=== PATIENT | female | born 1970 | race Caucasian/White ===

== ENCOUNTER → 2017-05-12 10:43 | Outpatient (CLI) | payer MEDICAID, SELFPAY ==
[2017-05-12 13:03] LABS: Anion Gap 8 (5-15); BUN 9 mg/dL (7-18); BUN/Creat Ratio 13.8 RATIO (10-20); Calcium,Total 8.5 mg/dL (8.5-10.1); Chloride 103 mmol/L (98-107); Creatinine, Serum 0.65 mg/dL (0.55-1.02); EST Glomerular Filtration Rate 104 mL/min (>60); Est Glom Filt Rate - Afr Amer 126 mL/min (>60); Glucose 84 mg/dL (74-106); Potassium 4.2 mmol/L (3.5-5.1); Sodium Level 139 mmol/L (136-145)
[2017-05-12 13:05] LABS: Hemoglobin A1c 5.6 % (4.2-6.3)
== END ==
PROVIDERS: Family Provider Family Medicine; PCP Family Medicine; Visit Provider Family Medicine
DX: R73.02 Impaired glucose tolerance (oral) (principal); R60.9 Edema, unspecified
CPT/HCPCS: 36415; 80048; 83036

== ENCOUNTER → 2017-05-17 16:17 | Outpatient (CLI) | payer MEDICAID, SELFPAY ==
[2017-05-17 18:16] LABS: Anion Gap 8 (5-15); BUN 9 mg/dL (7-18); BUN/Creat Ratio 11.1 RATIO (10-20); Calcium,Total 8.8 mg/dL (8.5-10.1); Chloride 98 mmol/L (98-107); Creatinine, Serum 0.81 mg/dL (0.55-1.02); EST Glomerular Filtration Rate 81 mL/min (>60); Est Glom Filt Rate - Afr Amer 98 mL/min (>60); Glucose 132 mg/dL (74-106); Potassium 4.6 mmol/L (3.5-5.1); Sodium Level 137 mmol/L (136-145)
== END ==
PROVIDERS: Family Provider Family Medicine; PCP Family Medicine; Visit Provider Family Medicine
DX: E87.6 Hypokalemia (principal); R60.9 Edema, unspecified
CPT/HCPCS: 36415; 80048

== ENCOUNTER → 2017-11-17 10:56 | Outpatient (CLI) | payer MEDICAID, SELFPAY ==
[2017-11-17 12:13] LABS: Absolute Lymphocyte Count 2.11 X10^3/ul (0.83-4.51); Absolute Neutrophil Count 6.3 X10^3/uL (2.0-7.7); Basophil# 0.05 X10^3/uL; Basophil% 0.5 % (0-1); Eosinophil# 0.25 X10^3/uL; Eosinophils% 2.7 % (0-5); Hematocrit 54.1 % (37-47); Hemoglobin 16.4 g/dl (12.0-15.0); Lymphocyte # 2.11 X10^3/ul (4.0); Lymphocyte % 22.5 % (19-41); Mean Corp Hgb Conc 30.3 g/gl (32-36); Mean Corpuscular Volume 82.5 fL (81-99); Mean Platelet Vol. 11.5 fl (6.2-12.0); Monocyte# 0.65 X10^3/uL; Monocyte% 6.9 % (0-10); Neutrophil # 6.33 X10^3/uL (2.7-7.7); Neutrophil % 67.4 % (47-70); Platelet Count 152 K/mm3 (150-450); RBC Distribution Width CV 19.6 % (11.6-14.6); RBC Distribution Width SD 57.5 fl (35.1-43.9); Red Blood Count 6.56 M/mm3 (4.2-5.4); White Blood Count 9.4 K/mm3 (4.4-11.0)
[2017-11-17 12:16] LABS: Differential Indicated SCAN CRITERIA MET; POSITIVE COUNT NO; POSITIVE DIFFERENTIAL NO; POSITIVE MORPHOLOGY YES
[2017-11-17 12:32] LABS: Vitamin D,25 Hydroxy 51.6 ng/mL (29.95-100.01)
[2017-11-17 13:18] LABS: ALB/GLOB Ratio 0.7 RATIO (0.9-2.4); AST(SGOT) 26 U/L (15-37); Alanine Aminotransfer ALT/SGPT 26 U/L (13-56); Albumin, Serum 3.2 g/dL (3.2-5.0); Alkaline Phosphatase 77 U/L (45-117); Anion Gap 8 (5-15); BUN 6 mg/dL (7-18); BUN/Creat Ratio 8.9 RATIO (10-20); Chloride 105 mmol/L (98-107); Creatinine, Serum 0.68 mg/dL (0.55-1.02); EST Glomerular Filtration Rate 100 mL/min (>60); Est Glom Filt Rate - Afr Amer 121 mL/min (>60); Globulin 4.5 g/dL (2.2-4.2); Glucose 105 mg/dL (74-106); Potassium 4.4 mmol/L (3.5-5.1); Protein, Total 7.7 g/dL (6.4-8.2); Sodium Level 140 mmol/L (136-145)
== END ==
PROVIDERS: Family Provider Family Medicine; PCP Family Medicine; Visit Provider Family Medicine
DX: G40.909 Epilepsy, unspecified, not intractable, without status epilepticus (principal); E55.9 Vitamin D deficiency, unspecified; D75.1 Secondary polycythemia; I27.29 Other secondary pulmonary hypertension; Z79.899 Other long term (current) drug therapy
CPT/HCPCS: 36415; 80053; 82306; 85025

== ENCOUNTER → 2018-05-18 10:53 | Outpatient (CLI) | payer MEDICAID, SELFPAY ==
[2018-05-18 12:19] LABS: Absolute Lymphocyte Count 2.06 X10^3/ul (0.83-4.51); Absolute Neutrophil Count 6.1 X10^3/uL (2.0-7.7); Basophil# 0.03 X10^3/uL; Basophil% 0.3 % (0-1); Eosinophil# 0.26 X10^3/uL; Eosinophils% 2.8 % (0-5); Hemoglobin 16.5 g/dl (12.0-15.0); Lymphocyte # 2.06 X10^3/ul (4.0); Lymphocyte % 22.5 % (19-41); Mean Corp Hgb Conc 29.5 g/gl (32-36); Mean Corpuscular Hgb 25.1 pg (27.0-32.0); Mean Corpuscular Volume 85.1 fL (81-99); Mean Platelet Vol. 11.2 fl (6.2-12.0); Monocyte# 0.75 X10^3/uL; Monocyte% 8.2 % (0-10); Neutrophil # 6.05 X10^3/uL (2.7-7.7); Neutrophil % 66.1 % (47-70); Platelet Count 200 K/mm3 (150-450); RBC Distribution Width CV 19.3 % (11.6-14.6); RBC Distribution Width SD 59.1 fl (35.1-43.9); Red Blood Count 6.57 M/mm3 (4.2-5.4); White Blood Count 9.2 K/mm3 (4.4-11.0)
[2018-05-18 12:22] LABS: Hematocrit 55.9 % (37-47)
[2018-05-18 12:23] LABS: Differential Indicated SCAN CRITERIA MET; POSITIVE COUNT NO; POSITIVE DIFFERENTIAL NO; POSITIVE MORPHOLOGY YES
[2018-05-18 12:43] LABS: Anion Gap 7 (5-15); BUN 12 mg/dL (7-18); BUN/Creat Ratio 17.9 RATIO (10-20); Chloride 103 mmol/L (98-107); Creatinine, Serum 0.67 mg/dL (0.55-1.02); EST Glomerular Filtration Rate 100 mL/min (>60); Est Glom Filt Rate - Afr Amer 121 mL/min (>60); Glucose 99 mg/dL (74-106); Potassium 4.8 mmol/L (3.5-5.1); Sodium Level 138 mmol/L (136-145)
[2018-05-18 13:24] LABS: Platelet Estimate ADEQUATE (ADEQ)
[2018-05-18 13:25] LABS: Red Cell Morphology NORM C+C NORMAL (NORM C&C)
== END ==
PROVIDERS: Family Provider Family Medicine; PCP Family Medicine; Visit Provider Family Medicine
DX: R60.9 Edema, unspecified (principal); D75.1 Secondary polycythemia
CPT/HCPCS: 36415; 80048; 85025

== ENCOUNTER → 2019-01-26 13:51 | Outpatient (CLI) | payer MEDICAID, SELFPAY ==
[2018-12-02 07:39] VITALS: BMI 59.3
--- NOTE | 2019-01-26 13:53 | ECHOCS_ITS ---
Reason For Study: PHTN Procedure This was a 2D Doppler, Color Flow transthoracic echocardiogram. The study was technically difficult. Contrast injection was performed. Left Ventricle Normal LV size. The estimated ejection fraction is 60 %. No evidence for diastolic dysfunction. No regional wall motion abnormalities noted. Right Ventricle Mildly dilated right ventricle. Normal systolic function. Atria Normal left atrium. Normal right atrium. No doppler evidence for ASD. Mitral Valve There is no mitral valve stenosis. No mitral valve insufficiency. Tricuspid Valve There is no tricuspid stenosis. Unable to estimate RV systolic pressure due to insufficient tricuspid regurgitant envelope. No tricuspid valve insufficiency. Aortic Valve The aortic valve is not well visualized. Probably no stenosis. No aortic valve insufficiency. Pulmonic Valve There is no pulmonic valvular stenosis. No pulmonic valve insufficiency. Great Vessels Normal aortic root. Pericardium/Pleural No pericardial effusion. Medication 22 gauge I.V. with prn adaptor inserted into right arm. Diluted definity 4ml given slow IV push to enhance endocardial definition. MMode/2D Measurements & Calculations LVIDd: 4.6 cm IVSd: 1.4 cm LA dimension: 3.4 cm LVIDs: 3.6 cm LVPWd: 1.4 cm FS: 23.1 % RA A4 area: 21.0 cm2 Time Measurements MV dec time: 0.25 sec Doppler Measurements & Calculations MV E max george: 116.9 cm/sec Lat Peak E' George: 9.5 cm/sec MV V2 max: 128.3 cm/sec MV A max george: 108.7 cm/sec E/E' lat: 12.3 MV max P.6 mmHg MV E/A: 1.1 MV V2 mean: 79.3 cm/sec MV mean P.9 mmHg MV V2 VTI: 31.1 cm MV P1/2t max george: 128.3 cm/sec Ao V2 max: 181.3 cm/sec LV V1 max: 102.2 cm/sec MV P1/2t: 77.7 msec Ao max P.1 mmHg LV V1 max P.2 mmHg MV dec slope: 483.6 cm/sec2 MVA(P1/2t): 2.8 cm2 PA V2 max: 131.8 cm/sec Interpretation Summary The study was technically difficult. Diluted definity 4ml given slow IV push to enhance endocardial definition. The estimated ejection fraction is 60 %. No evidence for diastolic dysfunction. The aortic valve is not well visualized. The study was technically difficult. Ordering Physician: Franky Angelo Referring Physician: Franky Angelo Performed By: Jeremiah Garcia RCS
== END ==
PROVIDERS: Family Provider Family Medicine; PCP Family Medicine; Referring Provider Internal Medicine Critical Care Medicine; Visit Provider Internal Medicine Critical Care Medicine
DX: I27.20 Pulmonary hypertension, unspecified (principal); J96.11 Chronic respiratory failure with hypoxia; E66.01 Morbid (severe) obesity due to excess calories
CPT/HCPCS: 93306; Q9957; A4216; C8929

== ENCOUNTER → 2019-02-24 12:30 | Outpatient (CLI) | payer MEDICAID, SELFPAY ==
[2018-12-02 07:39] VITALS: BMI 59.3
[2019-02-24 12:57] VITALS: PULSE 109; PULSE 112; PULSE 121; PULSE 122; PULSE 123; PULSE 124; PULSE 95; PULSE 99; O2SAT 87; O2SAT 89; O2SAT 91; O2SAT 93; O2SAT 95
--- NOTE | 2019-02-24 12:59 | CPS ---
Patient brought in own tank, wears 2 lpm at home with exertion and at night. Started testing on room air, SpO2 93%. By the 2nd minute 87%, placed patient on 2 lpm O2, walked remainder of the test.
[2019-02-24 13:15] LABS: Allen Test POS; Base Excess 3 mmol/L (-2 to +2); Bicarbonate 27.7 mmol/L (22-26); Blood Gas Specimen Type ART; O2 Delivery Device Room Air; PO2 54 mmHG (75-100); SITE L Radial; SO2 87 % (95-99); Total Carbon Dioxide 29 mmol/L; pCO2 46.5 mmHg (35-45); pH 7.38 (7.35-7.45)
--- NOTE | 2019-02-27 08:18 | PCM.PSN.6M ---
PSN 6 Minute Walk Test - 6 Minute Walk Test 6 Minute Walk Test: 6 Minute Walk Test PSN:6-Minute Walk Test Start: 02/24/19 12:56 Freq: Status: Active Protocol: RESP.6MINW Document 02/24/19 12:57 MEGAN (Rec: 02/24/19 13:00 MEGAN [id number]) 6 Minute Walk Test Date Performed 02/24/19 Time Performed 12:30 Height 5 ft 3 in Weight: 330 lb Weight in Pounds 330.[address]: Franky Angelo Assistive device used: None Pre-test Oxygen Delivery Method Room Air Pulse Ox (%) 93 Pulse Rate (60-100 beats/min) 95 Dyspnea Vania Scale (0-10) 0 Exertion Vania Scale (6-20) 6 1st minute Oxygen Delivery Method Room Air Pulse Ox (%) 87 Pulse Rate (60-100 beats/min) 109 H 2nd minute Oxygen Flow Rate (L/min) (L/min) 2 Oxygen Delivery Method Nasal Cannula Pulse Ox (%) 91 Pulse Rate (60-100 beats/min) 112 H 3rd minute Oxygen Flow Rate (L/min) (L/min) 2 Oxygen Delivery Method Nasal Cannula Pulse Ox (%) 89 Pulse Rate (60-100 beats/min) 122 H 4th minute Oxygen Flow Rate (L/min) (L/min) 2 Oxygen Delivery Method Nasal Cannula Pulse Ox (%) 89 Pulse Rate (60-100 beats/min) 123 H Number of Rests Taken 1 5th minute Oxygen Flow Rate (L/min) (L/min) 2 Oxygen Delivery Method Nasal Cannula Pulse Ox (%) 91 Pulse Rate (60-100 beats/min) 121 H 6th minute Oxygen Flow Rate (L/min) (L/min) 2 Oxygen Delivery Method Nasal Cannula Pulse Ox (%) 89 Pulse Rate (60-100 beats/min) 124 H Dyspnea Vania Scale (0-10) 3 Exertion Vania Scale (6-20) 14 Post-test Oxygen Flow Rate (L/min) (L/min) 2 Oxygen Delivery Method Nasal Cannula Pulse Ox (%) 95 Pulse Rate (60-100 beats/min) 99 Full Laps Walked 10 Partial Lap, Number of Tiles Walked 57 Total Distance Walked (ft) 647 02/24/19 12:59 Cardiopulmonary Services by Kelsey Townsend Patient brought in own tank, wears 2 lpm at home with exertion and at night. Started testing on room air, SpO2 93%. By the 2nd minute 87%, placed patient on 2 lpm O2, walked remainder of the test. Initialized on 02/24/19 12:59 - END OF NOTE - Interpretation Interpretation: The patient ambulated 647 feet over the course of 6 minutes beginning on room air without assistive devices or breaks. Pretesting oxygen saturation was noted to be 93% on room air. With ambulation, the jennie oxygen saturation was 87%. 2 L/min of supplemental oxygen was applied and the patient was able to complete the remainder of the test while maintaining appropriate oxygen saturations. There was evidence of impaired walk distance and significant exertional oxygen desaturation. - Recommendations Recommendations: 2 L/min of supplemental oxygen should be utilized with exertion.
== END ==
PROVIDERS: Family Provider Family Medicine; PCP Family Medicine; Referring Provider Internal Medicine Critical Care Medicine; Visit Provider Internal Medicine Critical Care Medicine
DX: J96.11 Chronic respiratory failure with hypoxia (principal); E66.01 Morbid (severe) obesity due to excess calories
CPT/HCPCS: 36600; 82803; 94618

== ENCOUNTER → 2019-02-24 13:41 | Outpatient (CLI) | payer MEDICAID, SELFPAY ==
[2018-12-02 07:39] VITALS: BMI 59.3
== END ==
PROVIDERS: Family Provider Family Medicine; PCP Family Medicine; Referring Provider Surgery; Visit Provider Surgery
DX: Z53.9 Procedure and treatment not carried out, unspecified reason (principal)

== ENCOUNTER → 2019-03-30 09:53 | Outpatient (CLI) | payer MEDICAID, SELFPAY ==
[2018-12-02 07:39] VITALS: BMI 59.3
--- NOTE | 2019-03-31 07:00 | PFT ---
INTRODUCTION: The patient is a 48-year-old female that presents for pulmonary function studies secondary to a diagnosis of chronic respiratory failure. Respiratory therapy reports good patient effort. Bronchodilators were used during testing. INTERPRETATION: Forced expiration spirometry demonstrates no evidence of a large airways obstructive ventilatory defect. There was no significant response to aerosolized bronchodilators. Spirograms plateau gradually indicating slow emptying of the lungs. Body plus tomography was performed and reveals a decreased TLC to 3.25 L, 68% of predicted, indicative of a moderate restrictive ventilatory defect. Diffusing capacity by single breath CO is disproportionately reduced at 21% of predicted. IMPRESSION: Moderate restrictive ventilatory impairment with disproportionate severe reduction in diffusing capacity.
== END ==
PROVIDERS: Family Provider Family Medicine; PCP Family Medicine; Referring Provider Internal Medicine Critical Care Medicine; Visit Provider Internal Medicine Critical Care Medicine
DX: J96.11 Chronic respiratory failure with hypoxia (principal)
CPT/HCPCS: 94060; 94726; 94729

== ENCOUNTER → 2019-03-31 13:30 | Outpatient (CLI) | payer MEDICAID, SELFPAY ==
[2018-12-02 07:39] VITALS: BMI 59.3
--- NOTE | 2019-03-31 13:35 | BI_ITS ---
MAMMOGRAPHY - BILATERAL SCREENING REASON FOR EXAM: Female, 48 years old. Routine annual screening examination. PERTINENT HISTORY: Non-contributory. Remote bilateral stereotactic breast biopsies. TECHNIQUE: Digital bilateral breast shena (3D mammographic acquisition) in the CC and MLO projections. 2-D mediolateral oblique (MLO) and craniocaudad (CC) views of both breasts were obtained. CAD: Full Field Digital Mammography with Computer Added Detection was performed. COMPARISON: Comparison is made with prior outside examination dated January 06, 2018. FINDINGS: Breast Composition: The breasts are heterogeneously dense, which may obscure small masses. There are no dominant masses or suspicious calcifications. No other significant abnormalities are identified. There has been no significant change since the prior study. BI/SCREEN MAMM (CAD) W/SHENA BILAT IMPRESSION: Stable bilateral screening mammogram. Yearly follow-up mammogram recommended. (A) ASSESSMENT CATEGORY: BIRADS Category 1: Negative. A letter regarding these results will be sent to the patient by the facility within 30 days. Approximately 10% of breast cancers are not detected by mammography. A normal mammogram should not delay biopsy of a clinically suspicious abnormality. [id number] Electronically Signed: Jeffy Gomez, at 14:54 EST , Service support ,
== END ==
PROVIDERS: Family Provider Family Medicine; PCP Family Medicine; Referring Provider Nurse Practitioner Family; Visit Provider Nurse Practitioner Family
DX: Z12.31 Encounter for screening mammogram for malignant neoplasm of breast (principal)
CPT/HCPCS: 77063; 77067

== ENCOUNTER → 2019-04-21 | Outpatient (CLI) | payer MEDICAID, SELFPAY ==
[2018-12-02 07:39] VITALS: BMI 59.3
[2019-04-21 12:24] LABS: Absolute Lymphocyte Count 2.23 X10^3/uL (0.83-4.51); Absolute Neutrophil Count 6.6 X10^3/uL (2.0-7.7); Basophil# 0.07 X10^3/uL; Basophil% 0.7 % (0-1); Eosinophil# 0.26 X10^3/uL; Eosinophils% 2.6 % (0-5); Hematocrit 54.2 % (37-47); Hemoglobin 16.8 g/dL (12.0-15.0); Lymphocyte # 2.23 X10^3/ul (4.0); Lymphocyte % 22.6 % (19-41); Mean Corpuscular Hgb 27.6 pg (27.0-32.0); Mean Corpuscular Volume 89.1 fL (81-99); Mean Platelet Vol. 11.3 fl (6.2-12.0); Monocyte# 0.63 X10^3/uL; Monocyte% 6.4 % (0-10); NRBC Flagged by Analyzer 0 % (0-5); Neutrophil % 67.1 % (47-70); Platelet Count 166 K/mm3 (150-450); RBC Distribution Width CV 18.9 % (11.6-14.6); RBC Distribution Width SD 58.6 fl (35.1-43.9); Red Blood Count 6.08 M/mm3 (4.2-5.4); White Blood Count 9.9 K/mm3 (4.4-11.0)
[2019-04-21 13:08] LABS: Vitamin D,25 Hydroxy 50.8 ng/mL (29.95-100.01)
[2019-04-21 13:10] LABS: ALB/GLOB Ratio 0.7 RATIO (0.9-2.4); AST(SGOT) 18 U/L (15-37); Alanine Aminotransfer ALT/SGPT 23 U/L (13-56); Albumin, Serum 3.1 g/dL (3.2-5.0); Alkaline Phosphatase 86 U/L (45-117); Anion Gap 4 (5-15); BUN 8 mg/dL (7-18); BUN/Creat Ratio 11.2 RATIO (10-20); Calcium,Total 8.9 mg/dL (8.5-10.1); Chloride 104 mmol/L (98-107); Creatinine, Serum 0.72 mg/dL (0.55-1.02); EST Glomerular Filtration Rate 93 mL/min (>60); Est Glom Filt Rate - Afr Amer 112 mL/min (>60); Globulin 4.5 g/dL (2.2-4.2); Glucose 90 mg/dL (74-106); Potassium 4.4 mmol/L (3.5-5.1); Protein, Total 7.6 g/dL (6.4-8.2); Sodium Level 138 mmol/L (136-145); Thyroid Stim Hormone (TSH) 0.16 uIU/mL (0.358-3.74)
== END | disposition home or self-care (01) ==
LOC: BFHLAB 11:18
PROVIDERS: PCP Family Medicine; Visit Provider Family Medicine
DX: R73.02 Impaired glucose tolerance (oral) (principal); E03.9 Hypothyroidism, unspecified; R60.9 Edema, unspecified; I27.29 Other secondary pulmonary hypertension; E55.9 Vitamin D deficiency, unspecified
CPT/HCPCS: 36415; 80053; 82306; 84443; 85025

== ENCOUNTER → 2019-11-23 | Outpatient (CLI) | payer MEDICAID, SELFPAY ==
[2019-09-06 08:10] VITALS: BMI 59.3
[2019-11-23 13:45] VITALS: PULSE 105; PULSE 109; PULSE 115; PULSE 116; PULSE 84; PULSE 86; O2SAT 86; O2SAT 88; O2SAT 90; O2SAT 91; O2SAT 92; O2SAT 93
--- NOTE | 2019-11-23 14:12 | CPS ---
Pt was started off on walk on room air. At 1 min saturation was 86%. Pt was placed back on her 2lpm pulse dose oxygen. At 3 min oxygen was 88% on the 2 lpm. Pt was increased to 3lpm pulse dose oxygen for remainder of test. Dr Angelo's office was called and informed that pt was going to stay on 3 lpm pulse dose.
--- NOTE | 2019-11-23 14:47 | PCM.PSN.6M ---
PSN 6 Minute Walk Test - 6 Minute Walk Test 6 Minute Walk Test: 6 Minute Walk Test PSN:6-Minute Walk Test Start: 11/23/19 14:07 Freq: Status: Active Protocol: RESP.6MINW Document 11/23/19 13:45 AE (Rec: 11/23/19 14:19 [facility] [id number]) 6 Minute Walk Test Date Performed 11/23/19 Time Performed 13:45 Height 5 ft 3 in Weight: 156.943 kg Weight in Pounds 346.[address]: Dr Angelo Assistive device used: None Pre-test Oxygen Delivery Method Room Air Pulse Ox (%) 90 Pulse Rate (60-100 beats/min) 86 Dyspnea Vania Scale (0-10) 0 Exertion Vania Scale (6-20) 6 1st minute Oxygen Delivery Method Room Air Pulse Ox (%) 86 Pulse Rate (60-100 beats/min) 105 H 2nd minute Oxygen Flow Rate (L/min) (L/min) 2 Oxygen Delivery Method Nasal Cannula Pulse Ox (%) 91 Pulse Rate (60-100 beats/min) 105 H 3rd minute Oxygen Flow Rate (L/min) (L/min) 2 Oxygen Delivery Method Nasal Cannula Pulse Ox (%) 88 Pulse Rate (60-100 beats/min) 105 H 4th minute Oxygen Flow Rate (L/min) (L/min) 3 Oxygen Delivery Method Nasal Cannula Pulse Ox (%) 92 Pulse Rate (60-100 beats/min) 109 H 5th minute Oxygen Flow Rate (L/min) (L/min) 3 Oxygen Delivery Method Nasal Cannula Pulse Ox (%) 90 Pulse Rate (60-100 beats/min) 116 H Number of Rests Taken 1 6th minute Oxygen Flow Rate (L/min) (L/min) 3 Oxygen Delivery Method Nasal Cannula Pulse Ox (%) 90 Pulse Rate (60-100 beats/min) 115 H Dyspnea Vania Scale (0-10) 2.5 Exertion Vania Scale (6-20) 12 Post-test Oxygen Flow Rate (L/min) (L/min) 3 Oxygen Delivery Method Nasal Cannula Pulse Ox (%) 93 Pulse Rate (60-100 beats/min) 84 Full Laps Walked 10 Partial Lap, Number of Tiles Walked 17 Total Distance Walked (ft) 607 11/23/19 14:12 Cardiopulmonary Services by Misty Ford Pt was started off on walk on room air. At 1 min saturation was 86%. Pt was placed back on her 2lpm pulse dose oxygen. At 3 min oxygen was 88% on the 2 lpm. Pt was increased to 3lpm pulse dose oxygen for remainder of test. Dr Angelo's office was called and informed that pt was going to stay on 3 lpm pulse dose. Initialized on 11/23/19 14:12 - END OF NOTE - Interpretation Interpretation: The patient was noted to be 90% on room air at rest. The patient desaturated to 86% within the first minute. The patient required 3 L nasal cannula to maintain saturations throughout testing. Patient's peak heart rate was noted at 115 bpm. In total, the patient traveled 607 feet over the course of 6 minutes with no assistive devices and one break. These findings are consistent with a respiratory limitation exercise tolerance. - Recommendations Recommendations: Patient requires no supplemental oxygen at rest, but should be using 3 L nasal cannula oxygen with any exertion.
== END | disposition home or self-care (01) ==
LOC: PSN 13:35
PROVIDERS: PCP Family Medicine; Referring Provider Nurse Practitioner Acute Care; Visit Provider Nurse Practitioner Acute Care
DX: J44.9 Chronic obstructive pulmonary disease, unspecified (principal)
CPT/HCPCS: 94618

== ENCOUNTER → 2020-01-29 12:54 | Outpatient (CLI) | payer MEDICAID, SELFPAY ==
[2019-09-06 08:10] VITALS: BMI 59.3
--- NOTE | 2020-01-30 05:41 | PFTCOMP ---
COMPLETE PULMONARY FUNCTION TEST INTERPRETATION Brief HPI: Patient is a 49 year old female, currently under the care of myself, who presents to [facility] for complete pulmonary function tests secondary to diagnosis of COPD. Respiratory therapist reports good effort and reproducible results. Interpretation: Forced expiration spirometry shows a moderately severe large airways obstructive ventilatory defect with an FEV1 of 51% predicted. There is no significant bronchodilator response by strict ATS criteria. Spirograms are of good quality and plateau slowly, indicating slowly emptying areas of the lungs. The respiratory flow volume loop shows decreased expiratory flow rates at all lung volumes consistent with airway obstruction. Lung volumes by body plethysmography show a decreased total lung capacity at 3.4 L, 71% predicted. FRC and RV are elevated out of proportion. Lung volume measurements are consistent with air-trapping. Diffusion capacity by carbon monoxide is decreased at 35% predicted. The airway resistance is normal. Compared to previous pulmonary function tests from 03/30/2019, there is been a significant improvement in DLCO. Impression: Irreversible moderately severe mixed ventilatory defect with a disproportionate reduction in diffusion capacity, but some improvement compared to previous testing.
== END ==
PROVIDERS: PCP Family Medicine; Referring Provider Nurse Practitioner Acute Care; Visit Provider Nurse Practitioner Acute Care
DX: J44.9 Chronic obstructive pulmonary disease, unspecified (principal)
CPT/HCPCS: 94060; 94726; 94729

== ENCOUNTER 2020-02-28 12:11 | Emergency (ER) | payer MEDICAID, SELFPAY ==
[2020-02-28 11:22] VITALS: BMI 59.1
[2020-02-28 12:12] VITALS: BP 159/96; PULSE 81; RESP 19; TEMP 36.2; O2SAT 95; BMI 59.0
[2020-02-28 12:39] VITALS: O2SAT 97
[2020-02-28 12:45] LABS: Carboxyhemoglobin Frac (CO) 22.6 % (0.0-1.5)
--- NOTE | 2020-02-28 12:56 | ED.VISSUMM ---
- ER Visit Summary Date of Service: 02/28/20 Chief Complaint: Carbon monoxide poisoning History of Present Illness: The patient is a [address] Guero Castillo. She went to see Dr. Harmon today for polycythemia vera and he obtained a carbon monoxide level which was 26.2. Patient denies any symptoms. She does not have a headache. She does not feel short of breath. She denies any neurologic symptoms. She states that she uses an electric furnace, electric water heater and a floor electric heater. There is no propane in her apartment. She does not have a wood-burning stove. She does smoke. Physical Examination: Vitals: Stable. Afebrile. General: Well-nourished and well-developed. Head: Normocephalic atraumatic. Neck: Supple, no lymphadenopathy. No JVD. Nontender. Cardiovascular: Regular rate and rhythm. No murmurs. Respiratory: No respiratory distress. Clear to auscultation bilaterally. Abdominal: Soft, nontender, nondistended, normal bowel sounds. No guarding, rebound, or peritoneal signs. Back: Nontender. Extremities: Nontender, no edema. Skin: Normal color, no rash. Neurologic: Alert and oriented ?3. Cranial nerves II through XII are intact. Normal strength and sensation. Psych: Normal affect. Test Results: Repeat carbon monoxide level here is 22.6. This is 1-1/2 hours after her prior test. She was on 3 L nasal cannula (home O2) in between. Emergency Department Course and Treatment: Patient was placed on a nonrebreather. She remained on this for 90 minutes. This should bring her carbon monoxide level down to approximately 11.8. She does not want to stay for an additional 90 minutes as she is concerned that no one else has a goff to her apartment and that she has 2 cats who may not be doing well there. Treatment Plan: The fire department was contacted they went out to the apartment building and the carbon monoxide level was 0. The patient rode here with her sister. The fire department checked the carbon monoxide level in her car while it was running and it is 0. The patient denies any use of paint thinner or products with methylene chloride in them. Because of this Poison control was contacted. Their only other thought was that one of the patient's neighbors may be running a propane heater at night and that it was turned off and level was 0 because of this. Patient is instructed to ask all of her neighbors if they been using a propane heater. Return to the emergency department for any worsening symptoms. Disposition: To home in improved and stable condition. Impression: 1. Carbon monoxide poisoning, asymptomatic. This note was generated with [employer] dictation software. It may contain incorrect words, spelling, and punctuation that were not noted in review of the chart prior to signing ED Disposition - Plan for ED Patient: Instructions: ED Carbon Monoxide Poisoning Referrals: Guero Castillo MD [Primary Care Provider] - 1-2 Days if not improving
[2020-02-28 14:26] VITALS: O2SAT 97
== END 2020-02-28 14:43 | disposition home or self-care (01) ==
PROVIDERS: Emergency Provider Emergency Medicine; PCP Family Medicine
DX: T65.891A Toxic effect of other specified substances, accidental (unintentional), initial encounter (principal); F17.200 Nicotine dependence, unspecified, uncomplicated; D75.1 Secondary polycythemia
CPT/HCPCS: 82375; 99282

== ENCOUNTER → 2020-05-08 15:00 | Outpatient (CLI) | payer MEDICAID, SELFPAY ==
[2020-04-10 11:23] VITALS: BMI 58.1
[2020-05-08 16:59] LABS: Absolute Lymphocyte Count 2.48 X10^3/uL (0.83-4.51); Absolute Neutrophil Count 7.4 X10^3/uL (2.0-7.7); Basophil# 0.07 X10^3/uL; Basophil% 0.6 % (0-1); Eosinophil# 0.25 X10^3/uL; Eosinophils% 2.3 % (0-5); Hemoglobin 17.1 g/dL (12.0-15.0); Lymphocyte # 2.48 X10^3/ul (4.0); Lymphocyte % 22.8 % (19-41); Mean Corp Hgb Conc 29.7 g/dL (32-36); Mean Corpuscular Hgb 26.8 pg (27.0-32.0); Mean Corpuscular Volume 90.4 fL (81-99); Mean Platelet Vol. 11.5 fl (6.2-12.0); Monocyte# 0.61 X10^3/uL; Monocyte% 5.6 % (0-10); NRBC Flagged by Analyzer 0 % (0-5); Neutrophil # 7.42 X10^3/uL (2.7-7.7); Neutrophil % 68.3 % (47-70); Platelet Count 185 K/mm3 (150-450); RBC Distribution Width CV 19.2 % (11.6-14.6); RBC Distribution Width SD 59.9 fl (35.1-43.9); Red Blood Count 6.37 M/mm3 (4.2-5.4); White Blood Count 10.9 K/mm3 (4.4-11.0)
[2020-05-08 17:04] LABS: Hematocrit 57.6 % (37-47)
[2020-05-08 17:21] LABS: Vitamin D,25 Hydroxy 64.7 ng/mL
[2020-05-08 17:33] LABS: Hemoglobin A1c 5.3 % (3.8-5.6)
[2020-05-08 17:37] LABS: ALB/GLOB Ratio 0.7 RATIO (0.9-2.4); AST(SGOT) 26 U/L (15-37); Alanine Aminotransfer ALT/SGPT 35 U/L (13-56); Albumin, Serum 3.4 g/dL (3.2-5.0); Alkaline Phosphatase 95 U/L (45-117); Anion Gap 5 (5-15); BUN 9 mg/dL (7-18); BUN/Creat Ratio 11.6 RATIO (10-20); Calcium,Total 9.4 mg/dL (8.5-10.1); Chloride 103 mmol/L (98-107); Creatinine, Serum 0.78 mg/dL (0.55-1.02); EST Glomerular Filtration Rate 84 mL/min (>60); Est Glom Filt Rate - Afr Amer 102 mL/min (>60); Globulin 4.6 g/dL (2.2-4.2); Glucose 91 mg/dL (74-106); Potassium 4.6 mmol/L (3.5-5.1); Sodium Level 138 mmol/L (136-145); T4 Free Direct 1.43 ng/dL (0.76-1.46); Thyroid Stim Hormone (TSH) 3.14 uIU/mL (0.358-3.74)
== END ==
PROVIDERS: PCP Family Medicine; Visit Provider Family Medicine
DX: E03.9 Hypothyroidism, unspecified (principal); E55.9 Vitamin D deficiency, unspecified; D75.1 Secondary polycythemia; I27.29 Other secondary pulmonary hypertension; R73.02 Impaired glucose tolerance (oral)
CPT/HCPCS: 36415; 80053; 82306; 83036; 84439; 84443; 85025

== ENCOUNTER 2020-05-25 19:43 | Emergency (ER) | payer MEDICAID, SELFPAY ==
[2020-05-15 11:24] VITALS: BMI 58.6
[2020-05-25 19:44] VITALS: BP 162/89; PULSE 80; RESP 20; TEMP 36.3; O2SAT 98; BMI 58.2
--- NOTE | 2020-05-25 20:10 | RAD_ITS ---
STUDY: X-RAY - LEFT KNEE REASON FOR EXAM: Female, 50 years old. Swelling TECHNIQUE: 4 view(s) of the knee. COMPARISON: None. FINDINGS: No acute fracture, dislocation or osseous destruction. Mild diffuse joint space narrowing. No significant productive changes. Diffuse prominence of the soft tissues and superficial veins. IMPRESSION: No acute fracture or dislocation. Electronically Signed: Yan Reid MD at 20:34 EDT Tel , Service support , RAD/Knee 4 or More Views
--- NOTE | 2020-05-25 20:38 | ED.DCSUM_ITS ---
- ER Visit Summary Date of Service: 05/25/20 Chief Complaint: Left lower extremity swelling History of Present Illness: The patient is a 50 F presenting with left lower extremity swelling. Patient states she noticed this today. She has swelling distal to her left knee. She denies pain or injury. She went to [facility] and was told she needed a venous Doppler to rule out DVT. She states they were unable to perform this over the weekend. She denies chest pain. She is on nasal cannula oxygen chronically and is no more short of breath than usual. She denies fever. Denies other complaints. Physical Examination: Vitals are stable. Patient is afebrile. Alert no acute distress. HEENT exam is unremarkable. Neck is supple. Lungs are clear and equal bilaterally. Heart is regular rate and rhythm. Abdomen is soft nontender nondistended. Extremities bilateral chronic lymphedema changes. No erythema or warmth of the knee with active full range of motion. She has small area of swelling just distal to the left knee. No tenderness. Normal distal pulses. Skin is warm and dry. No focal neurologic deficit. Remainder of exam is unremarkable. Emergency Department Course and Treatment: Left knee x-ray read by myself and radiology shows no acute fracture or dislocation. Patient is resting comfortably on reevaluation. Venous Doppler is ordered for tomorrow as it is not currently available. Advised to return to the ED for worsening complaints. Disposition: Discharge home Impression: Left lower extremity swelling This note was generated with [employer] dictation software. It may contain incorrect words, spelling, and punctuation that were not noted in review of the chart prior to signing ED Disposition - Plan for ED Patient: Referrals: Guero Castillo MD [Primary Care Provider] -
--- NOTE | 2020-05-25 22:31 | ED.DEP ---
ED Disposition - Plan for ED Patient: Instructions: ED Peripheral Edema, Unilateral Referrals: Guero Castillo MD [Primary Care Provider] -
== END 2020-05-25 22:48 | disposition home or self-care (01) ==
LOC: ED 20:44
PROVIDERS: Emergency Provider Emergency Medicine; PCP Family Medicine
DX: M79.89 Other specified soft tissue disorders (principal); J44.9 Chronic obstructive pulmonary disease, unspecified; Z79.51 Long term (current) use of inhaled steroids
CPT/HCPCS: 73564; 99282

== ENCOUNTER → 2020-06-09 | Outpatient (CLI) | payer MEDICAID, SELFPAY ==
[2020-06-05 13:25] VITALS: BMI 57.8
[2020-06-09 18:08] LABS: Carboxyhemoglobin Frac (CO) 23.2 % (0.0-1.5)
[2020-06-09 22:09] LABS: Carboxyhemoglobin Frac (CO) 14.4 % (0.0-1.5)
== END | disposition home or self-care (01) ==
LOC: LABSPEC 17:41
PROVIDERS: PCP Family Medicine
DX: R06.89 Other abnormalities of breathing (principal)
CPT/HCPCS: 82375

== ENCOUNTER 2020-06-10 15:52 | Emergency (ER) | payer MEDICAID, SELFPAY ==
[2020-06-05 13:25] VITALS: BMI 57.8
[2020-06-10 15:53] VITALS: BP 141/74; PULSE 80; RESP 21; TEMP 36.4; O2SAT 97; BMI 56.7
[2020-06-10 16:04] VITALS: PULSE 83; RESP 18; O2SAT 92
[2020-06-10 16:08] VITALS: O2SAT 92
--- NOTE | 2020-06-10 16:16 | ED.VIS.GEN ---
History of Present Illness Chief Complaint: Abn Labs Informant: Patient Narrative: 10-year-old female with history of COPD on 3 L of oxygen at baseline presenting with abnormal lab work. She states that she had an elevated carboxyhemoglobin. She was seen in [place] last night and states that her carboxyhemoglobin was in the 40s. She was placed on nonrebreather and [place]. She did go home. She states that her place has been checked 3 times and there is no leaks of any sort. Patient states that she does have a mild headache, nausea, body aches. She is not required more oxygen. She states that nobody else has been ill that is been around. She states that overnight it was just her and her cats and her cats are not sick. Patient's carboxyhemoglobin checked yesterday was 14.4. Patient does relate that she smokes 1-1/2 to 2 packs of cigarettes per day and she has been told that this could make her carboxyhemoglobin high. - Past Medical History (1) COPD (chronic obstructive pulmonary disease) Status: Chronic (2) Carbon monoxide poisoning Status: Chronic (3) Lymph edema Status: Chronic (4) Morbid (severe) obesity due to excess calories Status: Chronic Past Medical History - Allergies and Home Meds Allergies/Adverse Reactions: Allergies codeine Allergy (Severe, Verified 06/05/20 13:23) Anaphylaxis levothyroxine sodium Allergy (Severe, Verified 06/05/20 13:23) Hives medroxyprogesterone acetate [From Provera] Allergy (Severe, Verified 06/05/20 13:23) Hives Penicillins Allergy (Severe, Verified 06/05/20 13:23) Hives spironolactone Allergy (Severe, Verified 06/05/20 13:23) Hives fluticasone [From Flonase] Allergy (Intermediate, Verified 06/05/20 13:23) ALLERGY Latex, Natural Rubber Allergy (Intermediate, Verified 06/05/20 13:23) ALLERGY sitagliptin [From Januvia] Allergy (Intermediate, Verified 06/05/20 13:23) ALLERGY metformin Allergy (Mild, Verified 06/05/20 13:23) Hives sitagliptin phosphate [From Januvia] Adverse Reaction (Severe, Verified 06/05/20 13:23) Shortness of breath adhesive tape Adverse Reaction (Intermediate, Verified 06/05/20 13:23) SKIN BREAK DOWN BEES Allergy (Severe, Uncoded 05/25/20 19:46) Swelling Primary Care Physician: Guero Castillo MD [Primary Care Provider] - Prior records reviewed: Yes Past Medical History: - - Hemochromatosis Surgical History: noncontributory Lives: [facility] Smoking Status: Current every day smoker Alcohol: None Drugs: None Review of Systems General: Denies: Chills, Fever, Sweats Eyes: Denies: Visual changes - bilaterally, Diplopia ENT: Denies: Rhinorrhea, Sore throat Cardiovascular: Denies: Chest pain, Palpitations Respiratory: Denies: Dyspnea, Cough, Sputum Gastrointestinal: Reports: Nausea. Denies: Abdominal pain, Vomiting Genitourinary: Denies: Dysuria, Hematuria Musculoskeletal: Reports: Myalgias. Denies: Arthralgias, Neck pain Skin: Denies: Rash, Wounds Neurological: Reports: Headache. Denies: Weakness, Parasthesia, Numbness Psych: Denies: Depression, Anxiety, Suicidal thoughts, Suicidal ideations Endocrine: Denies: Polyuria, Polydipsia Physical Exam Vital Signs/Narrative: Vital Signs Temp Pulse Resp BP Pulse Ox 06/10/20 16:08 92 06/10/20 16:04 83 18 92 06/10/20 15:53 97.5 F L 80 21 H 141/74 H 97 Inital Vital Signs reviewed: Yes General: Well nourished, No Acute Distress Head: Normocephalic, Atraumatic Eyes: Perrl, EOMI ENT: Moist mucous membranes, No rhinorrhea Cardiovascular: Regular rate, Regular rhythm Respiratory: No distress, CTA bilaterally Extremities: Nontender, No edema Skin: Normal color, No rash. Negative for: Cyanosis, Diaphoresis Neurological: Alert, Oriented x3, Cranial nerves II-XII grossly intact Psychological: Normal affect, Normal Mood Diagnostic/Tx/Re-eval - Medical Decision Making Patient had a carboxyhemoglobin rechecked again in the ER it is 14.2 and it was 14.4. Patient has been on nonrebreather for 90 minutes and I will recheck her carboxyhemoglobin. Patient states that she feels fine at this time. She has no complaints. ED Disposition - Plan for ED Patient: Disposition: Home or Assisted Living Referrals: Guero Castillo MD [Primary Care Provider] - Additional Instructions: 50-year-old female presenting with elevated carboxyhemoglobin levels. She does states she walks 1-1/2 to 2 packs of cigarettes a day. Patient's last level was 14. She has had a nonrebreather on for 90 minutes and she is down to 11. Patient does not want to stay to get it down under 10. Patient states she is had her house checked 3 times and there is no leaks of any sort. Likely this is due to tobacco use. Patient is stable for discharge at this time. Impression: 1. Elevated carboxyhemoglobin level
[2020-06-10 17:07] VITALS: O2SAT 99
[2020-06-10 17:22] LABS: Carboxyhemoglobin Frac (CO) 14.2 % (0.0-1.5)
[2020-06-10 19:31] VITALS: BP 132/87; PULSE 74; RESP 19; TEMP 36.5; O2SAT 97
== END 2020-06-10 19:32 | disposition home or self-care (01) ==
PROVIDERS: Emergency Provider Student in an Organized Health Care Education/Training Program; PCP Family Medicine
DX: T58.8X2A Toxic effect of carbon monoxide from other source, intentional self-harm, initial encounter (principal); J44.9 Chronic obstructive pulmonary disease, unspecified; E66.01 Morbid (severe) obesity due to excess calories; Z99.81 Dependence on supplemental oxygen
CPT/HCPCS: 82375; 99283; A4216

== ENCOUNTER → 2020-06-17 12:38 | Outpatient (CLI) | payer MEDICAID, SELFPAY ==
[2020-05-25 19:44] VITALS: BMI 58.2
[2020-06-10 15:53] VITALS: BMI 56.7
--- NOTE | 2020-06-17 12:47 | VDLE_ITS ---
Reason For Study: PAIN Procedure LEFT This is a venous duplex using B-mode, color GSV is normal. flow and spectral Doppler. FV is compressible, spontaneous, phasic, Exam performed in department. competent and demonstrates normal A preliminary report was called and/or faxed augmentation. to ED. POP V is compressible, spontaneous, phasic, competent and demonstrates normal augmentation. T/P Trunk is compressible. PTV is compressible. LT PerV is compressible. LT CFV not visualized due to body habitus/pannus. LT SFJ and POPV have doppler in transverse view due to body habiuts. VL/Venous Duplex US, Unilateral Interpretation Summary There is no evidence of left lower extremity deep vein thrombosis. Left great s aphenous vein appears patent and compressible segmentally. Please see the technical limitations of th e examination with inability to demonstrate the left common femoral vein and technical difficultie s in imaging the left saphenofemoral junction as well as the left popliteal vein Ordering Physician: Ivory Ballesteros Referring Physician: KENIA CARSON Performed By: Clara Whitehead, SUSHANTCS, RVT
== END ==
PROVIDERS: PCP Family Medicine; Referring Provider Emergency Medicine; Visit Provider Emergency Medicine
DX: M79.605 Pain in left leg (principal)
CPT/HCPCS: 93971

== ENCOUNTER → 2020-07-18 13:38 | Outpatient (CLI) | payer MEDICAID, SELFPAY ==
--- NOTE | 2020-07-18 13:42 | RAD_ITS ---
EXAM: XR CHEST, 2 VIEWS : 1970 CLINICAL INDICATION: CAUGH TECHNIQUE: Frontal and lateral views of the chest. This report was created using [employer] report generation technology. COMPARISON: 11/28/2014 FINDINGS: LUNGS AND PLEURAL SPACES: Unremarkable. No consolidation or edema. No pneumothorax. No effusion. HEART: Unremarkable. Cardiac silhouette not enlarged. MEDIASTINUM: Central airways and mediastinal contour are unremarkable. BONES/JOINTS: Unremarkable. SOFT TISSUES: Unremarkable. RAD/Chest PA and Lateral IMPRESSION: No radiographic evidence of acute cardiopulmonary disease. at 0805 Reported and signed by: Lit Hunter MD Electronically Signed: Lit Hunter MD at 8:04 EDT Tel , Service support ,
== END ==
PROVIDERS: PCP Family Medicine; Visit Provider Family Medicine
DX: J44.9 Chronic obstructive pulmonary disease, unspecified (principal); R09.02 Hypoxemia
CPT/HCPCS: 71046

== ENCOUNTER → 2020-08-07 13:05 | Outpatient (CLI) | payer MEDICAID, SELFPAY ==
[2020-08-07 14:55] LABS: Absolute Lymphocyte Count 2.69 X10^3/uL (0.83-4.51); Absolute Neutrophil Count 7.7 X10^3/uL (2.0-7.7); Basophil# 0.08 X10^3/uL; Basophil% 0.7 % (0-1); Eosinophil# 0.28 X10^3/uL; Eosinophils% 2.4 % (0-5); Hematocrit 55.5 % (37-47); Hemoglobin 17.1 g/dL (12.0-15.0); Lymphocyte # 2.69 X10^3/ul (0.83-4.51); Lymphocyte % 23.5 % (19-41); Mean Corp Hgb Conc 30.8 g/dL (32-36); Mean Corpuscular Hgb 27.2 pg (27.0-32.0); Mean Corpuscular Volume 88.2 fL (81-99); Mean Platelet Vol. 11.4 fl (6.2-12.0); Monocyte# 0.63 X10^3/uL; Monocyte% 5.5 % (0-10); NRBC Flagged by Analyzer 0 % (0-5); Neutrophil # 7.74 X10^3/uL (2.7-7.7); Neutrophil % 67.6 % (47-70); Platelet Count 209 K/mm3 (150-450); RBC Distribution Width CV 17.3 % (11.6-14.6); RBC Distribution Width SD 53.3 fl (35.1-43.9); Red Blood Count 6.29 M/mm3 (4.2-5.4); White Blood Count 11.5 K/mm3 (4.4-11.0)
[2020-08-07 15:19] LABS: Vitamin D,25 Hydroxy 68.7 ng/mL
[2020-08-07 15:37] LABS: Anion Gap 9 (5-15); BUN 6 mg/dL (7-18); BUN/Creat Ratio 9.3 RATIO (10-20); Calcium,Total 8.9 mg/dL (8.5-10.1); Chloride 103 mmol/L (98-107); Creatinine, Serum 0.65 mg/dL (0.55-1.02); EST Glomerular Filtration Rate 104 mL/min (>60); Est Glom Filt Rate - Afr Amer 125 mL/min (>60); Glucose 108 mg/dL (74-106); Potassium 3.9 mmol/L (3.5-5.1); Rheumatoid Factor < 10.0 IU/mL (<15); Sodium Level 139 mmol/L (136-145); T4 Free Direct 1.79 ng/dL (0.76-1.46); Thyroid Stim Hormone (TSH) 0.69 uIU/mL (0.358-3.74)
[2020-08-09 16:26] LABS: ANTINUCLEAR ANTIBODIES DIRECT Negative (Negative)
[2020-08-10 07:36] LABS: CCP IgG Antibodies 4 units (0-19)
== END ==
PROVIDERS: PCP Family Medicine; Referring Provider Family Medicine; Visit Provider Family Medicine
DX: E55.9 Vitamin D deficiency, unspecified (principal); E03.9 Hypothyroidism, unspecified; I27.29 Other secondary pulmonary hypertension; M06.4 Inflammatory polyarthropathy
CPT/HCPCS: 36415; 80048; 82306; 84439; 84443; 85025; 86038; 86200; 86225; 86235; 86431

== ENCOUNTER 2020-09-17 16:02 | Emergency (ER) | payer MEDICAID, SELFPAY ==
[2020-09-17 16:02] VITALS: BP 151/74; PULSE 89; RESP 22; TEMP 37.1; O2SAT 90; BMI 54.6
--- NOTE | 2020-09-17 16:54 | EKG12_ITS ---
Test Reason : SOB Blood Pressure : / mmHG Vent. Rate : 069 BPM Atrial Rate : 069 BPM P-R Int : 190 ms QRS Dur : 092 ms QT Int : 380 ms P-R-T Axes : 060 -09 029 degrees QTc Int : 407 ms Normal sinus rhythm Normal ECG Confirmed by OPAL MADDOX, KATHARINE ([id number]), sound editor MCKENZIE BOCANEGRA ([id number]) on 09/18/2020 11:55:14 AM Referred By: SIMRAN Confirmed By:KATHARINE JOSEPH MD
[2020-09-17 16:58] VITALS: O2SAT 94
--- NOTE | 2020-09-17 17:20 | RAD_ITS ---
INDICATION: SOB, hypoxia EXAMINATION/TECHNIQUE: X-RAY - XR Chest 1 View COMPARISON: 07/18/2020. FINDINGS: The lungs are clear. The cardiomediastinal silhouette is unremarkable. No pleural effusion or pneumothorax. No acute osseous abnormalities. Dextroscoliosis. RAD/Chest 1 View (Portable) IMPRESSION: No acute radiographic abnormalities. Electronically Signed: Abran Elmore MD at 17:32 EDT Tel , Service support ,
[2020-09-17 17:26] LABS: Absolute Lymphocyte Count 2.41 X10^3/uL (0.83-4.51); Absolute Neutrophil Count 6.8 X10^3/uL (2.0-7.7); Basophil# 0.07 X10^3/uL; Basophil% 0.7 % (0-1); Eosinophil# 0.23 X10^3/uL; Eosinophils% 2.3 % (0-5); Hematocrit 52.1 % (37-47); Hemoglobin 16.2 g/dL (12.0-15.0); Lymphocyte # 2.41 X10^3/ul (0.83-4.51); Lymphocyte % 23.7 % (19-41); Mean Corp Hgb Conc 31.1 g/dL (32-36); Mean Corpuscular Hgb 26.6 pg (27.0-32.0); Mean Corpuscular Volume 85.7 fL (81-99); Monocyte# 0.68 X10^3/uL; Monocyte% 6.7 % (0-10); NRBC Flagged by Analyzer 0 % (0-5); Neutrophil # 6.75 X10^3/uL (2.7-7.7); Neutrophil % 66.3 % (47-70); Platelet Count 211 K/mm3 (150-450); RBC Distribution Width CV 16.8 % (11.6-14.6); Red Blood Count 6.08 M/mm3 (4.2-5.4); White Blood Count 10.2 K/mm3 (4.4-11.0)
--- NOTE | 2020-09-17 17:27 | EDS_ITS ---
HPI History of Present Illness Chief Complaint: Shortness of Breath Informant: patient Narrative Narrative: Patient is a 50-year-old female with a past medical history of COPD, [place], polycythemia who presents to the emergency department for shortness of breath and headache. She states that she has had these symptoms before in the past when she has had carbon monoxide poisoning. She states that she was told that she had this due to her smoking and polycythemia. She denies any exposures to combustible sources. She states that her symptoms have been present over the past 3 days. She is had a hard time getting her oxygen above 92% at home. She typically wears 3 L of supplemental oxygen when exerting herself and sleeping. She denies a significant cough. No sputum production. No fevers or chills. She has not been vaccinated for Covid but no known Covid exposures. She denies any nausea/vomiting or diarrhea. No leg swelling or calf pain past baseline. [facility] Medical History (Updated 09/17/20 @ 18:[address] Canelo Burnett, ) Asthma Breast lump in female Chronic obstructive asthma COPD (chronic obstructive pulmonary disease) Fibromyalgia Hearing problem Hidradenitis History of allergic urticaria History of chronic bronchitis History of seizures Hypothyroidism Lymph edema Migraine headache Obesity Polycystic ovaries Pulmonary hypertension Seasonal allergies Sleep apnea Vision problems Vitamin deficiency Home Medications levothyroxine 200 mcg PO DAILY 11/14/14 [History Last Taken Unknown] lamotrigine 25 mg tablet 25 mg PO DAILY tab 10/07/18 [History Last Taken Unknown] metformin 1,000 mg tablet 1,000 mg PO BID 10/07/18 [History Last Taken Unknown] potassium chloride 20 mEq tablet,extended release(part/cryst) 20 meq PO DAILY tab 10/07/18 [History Last Taken Unknown] albuterol sulfate 90 mcg/actuation aerosol inhaler 2 puff INHALATION Q6H PRN #18 g 06/13/19 [Rx Last Taken Unknown] bumetanide 2 mg tablet 2 mg PO DAILY PRN #30 tab 06/13/19 [Rx Last Taken Unknown] levothyroxine 75 mcg PO QHS 02/22/20 [History Last Taken Unknown] cholecalciferol (vitamin D3) 7,000 unit PO DAILY 04/10/20 [History Last Taken Unknown] Allergy/AdvReac Type Severity Reaction Status Date / Time codeine Allergy Severe Anaphylaxis Verified 09/17/20 16:05 levothyroxine sodium Allergy Severe Hives Verified 09/17/20 16:05 medroxyprogesterone acetate Allergy Severe Hives Verified 09/17/20 16:05 [From Provera] Penicillins Allergy Severe Hives Verified 09/17/20 16:05 spironolactone Allergy Severe Hives Verified 09/17/20 16:05 fluticasone [From Flonase] Allergy Intermediate ALLERGY Verified 09/17/20 16:05 Latex, Natural Rubber Allergy Intermediate ALLERGY Verified 09/17/20 16:05 sitagliptin [From Januvia] Allergy Intermediate ALLERGY Verified 09/17/20 16:05 metformin Allergy Mild Hives Verified 09/17/20 16:05 sitagliptin phosphate AdvReac Severe Shortness Verified 09/17/20 16:05 [From Januvia] of breath adhesive tape AdvReac Intermediate SKIN BREAK Verified 09/17/20 16:05 [place] Allergy Severe Swelling Uncoded 09/17/20 16:05 Family History Mother Hypertension CVA (cerebral vascular accident) Cancer Grandfather Cancer lung Heart disease Grandmother Hypertension Cancer Father CVA (cerebral vascular accident) Brother Diabetes Other Alcoholism /alcohol abuse Arthritis Epilepsy Lung cancer Seizures Uterine cancer Surgical History history diagnostic laparoscopy History of dilatation and curettage History of nasal surgery History of tonsillectomy Social History Smoking Status: Current every day smoker tobacco type: cigarettes counseling given: provider counseling and counseling >10 minutes alcohol intake: never substance use type: does not use additional social history: DOES NOT USE ASPIRIN DOES USE IBUPROFEN ROS ROS ED Constitutional Constitutional ED: Denies chills or fever(s) Eyes Eyes: Denies change in vision ENT ENT ED: Denies epistaxis or rhinorrhea Cardiovascular Cardiovascular: Denies chest pain or palpitations Respiratory/Chest Respiratory/Chest: Reports dyspnea; Denies cough or sputum Gastrointestinal Gastrointestinal: Denies abdominal pain, diarrhea, nausea or vomiting Genitourinary Genitourinary ED: Denies dysuria, hematuria or urinary frequency Musculoskeletal Musculoskeletal: Denies back pain or neck pain Integumentary Denies rash Neurologic Neurologic: Reports headache(s); Denies dizziness or weakness EXAM Physical Exam Const Vital Signs: 09/17/20 16:02 09/17/20 16:58 09/17/20 17:51 Temperature 98.7 F Temperature Source Temporal Pulse Rate 89 Respiratory Rate 22 H Respiratory Effort Short of Breath Respiratory Depth Normal Respiratory Pattern Normal Blood Pressure 151/74 H Blood Pressure Mean 99 Pulse Ox 90 94 Oxygen Delivery Method Nasal Cannula Room Air Nasal Cannula Oxygen Flow Rate (L/min) 3 2 09/17/20 18:58 09/17/20 20:02 Temperature Temperature Source Pulse Rate 64 Respiratory Rate 18 18 Respiratory Effort Respiratory Depth Respiratory Pattern Blood Pressure Blood Pressure Mean Pulse Ox 99 96 Oxygen Delivery Method Nasal Cannula Oxygen Flow Rate (L/min) 6 Positive well nourished and well developed General Appearance ED: well developed and NAD HEENT Reports normocephalic, head/scalp atraumatic and moist mucous membranes Eyes PERRL and EOMs intact bilaterally Neck supple General: Negative for tenderness Chest Wall inspection of chest normal Resp normal respiratory effort and clear to auscultation bilaterally Auscultation: Negative for rales, rhonchi or wheezes Cardio regular rate, regular rhythm and no murmurs GI normal to inspection, nondistended, normoactive bowel sounds and non-tender Palpation: soft; Negative for guarding or rebound tenderness present Back/Spine no CVA tenderness Extremity General Extremety ED: Negative for tenderness Neuro CN's II-XII intact bilaterally and no sensory deficits noted Sensorium / Orientation: alert Motor Exam: strength 5/5 throughout Psych mental status grossly normal Skin no rashes or lesions noted MDM MDM MDM Narrative Medical decision making narrative: Patient presents to the emergency department for shortness of breath and headache. She is concerned that she has carbon monoxide poisoning as she has had this before just with smoking cigarettes. She continues to smoke despite this. On arrival she is satting in the low 90s on room air. She is in no acute distress. Able to speak in full sentences on examination. She is a benign exam. Will check x-ray as well as basic lab work. Patient's lab work does not show a high white blood cell count. She has a hemoglobin of 16.2 which is consistent with her previous lab work. Her C MP did not reveal any significant acute abnormality. Her carboxyhemoglobin was 19.2. She has had higher levels in the past. Her troponin is within normal limits. BNP is well within normal limits. X-ray did not reveal any significant acute abnormality. After being started back on her supplemental oxygen her carboxyhemoglobin was rechecked by at the finger measurement and was trended down to 14. I did recommend she continue on her home oxygen. She states that she has had her home checked and she does feel safe going back. I did career guidance counselor the patient on smoking sensation as her levels will just rise back up if she continues to smoke. Patient understands. Should be discharged home in stable condition. She is to follow-up with her PCP. Return precautions are reviewed. She does feel better at this time. Lab Data Labs: Laboratory Results - last 24 hr 09/17/20 09/17/20 09/17/20 17:17 17:17 17:17 WBC 10.2 RBC 6.08 H Hgb 16.2 H Hct 52.1 H MCV 85.7 MCH 26.6 L MCHC 31.1 L RDW Std Deviation 50.0 H RDW Coeff of Radha 16.8 H Plt Count 211 MPV 11.0 Immature Gran % (Auto) 0.300 Neut % (Auto) 66.3 Lymph % (Auto) 23.7 [place] % (Auto) 6.7 Eos % (Auto) 2.3 Baso % (Auto) 0.7 Absolute Neuts (auto) 6.8 Absolute Lymphs (auto) 2.41 Nucleated RBC % 0 Sodium 137 Potassium 4.1 Chloride 104 Carbon Dioxide 28.0 Anion Gap 5 BUN 7 Creatinine 0.73 Estim Creat Clear Calc 77.96 Est GFR (MDRD) Af Amer 109 Est GFR (MDRD) Non-Af 90 BUN/Creatinine Ratio 9.6 L Glucose 100 Calcium 8.9 Total Bilirubin 0.80 AST 17 ALT 23 Alkaline Phosphatase 87 Troponin I High Sens 3.3 B-Natriuretic Peptide 5.2 Total Protein 7.7 Albumin 3.3 Globulin 4.4 H Albumin/Globulin Ratio 0.8 L ABG Data ABG results: ABG 09/17/20 17:17 VBG Carboxyhemoglobin 19.2 H Radiography Diagnostic Testing: Radiology Impression Chest X-Ray 09/17/20 17:20 IMPRESSION: No acute radiographic abnormalities. Electronically Signed: Abran Elmore MD at 17:32 EDT Tel , Service support , Single view portable x-ray interpreted by myself. Clear lung glass bilaterally. No pleural effusion. Normal cardiac silhouette. Normal mediastinum. There is scoliosis present. Agree with radiologist interpretation. EKG Initial EKG: Attestation: I personally reviewed and interpreted this EKG as follows: (Rate of 69 bpm and normal sinus rhythm. Normal intervals. Normal axis. No significant ST elevations or depressions. No T wave abnormalities.) Discharge Plan Triage Chief Complaint: Shortness of Breath ED Provider: Canelo Burnett Dx/Rx/DC Orders Clinical Impression: Carbon monoxide poisoning Instructions: Carbon Monoxide Poisoning, Planning to Quit Smoking Prescriptions: No Action metformin [Glucophage] 1,000 mg tablet 1,000 mg PO BID RF: 0 lamotrigine [Lamictal] 25 mg tablet 25 mg PO DAILY RF: 0 albuterol sulfate 90 mcg/actuation HFA aerosol inhaler 2 puff INHALATION Q6H PRN (Reason: shortness of breath or wheezing) Qty: 18 RF: 3 bumetanide 2 mg tablet 2 mg PO DAILY PRN (Reason: edema) Qty: 30 RF: 0 levothyroxine 175 MCG tablet 200 mcg PO DAILY RF: 0 potassium chloride 20 mEq tablet,ER particles/crystals 20 meq PO DAILY RF: 0 levothyroxine 75 MCG tablet 75 mcg PO QHS RF: 0 cholecalciferol (vitamin D3) 1,000 UNIT tablet 7,000 unit PO DAILY RF: 0 Primary Care Provider: Guero Castillo Referrals: Guero Castillo MD [Primary Care Provider] - 2 Days Disposition Disposition: Home, Self Care Discharge Date/Time: 09/17/20 20:02
[2020-09-17 17:43] LABS: BNP,B-Type NATRIURETIC PEPTIDE 5.2 pg/mL (0-100)
[2020-09-17 17:47] LABS: ALB/GLOB Ratio 0.8 RATIO (0.9-2.4); AST(SGOT) 17 U/L (15-37); Alanine Aminotransfer ALT/SGPT 23 U/L (13-56); Albumin, Serum 3.3 g/dL (3.2-5.0); Alkaline Phosphatase 87 U/L (45-117); Anion Gap 5 (5-15); BUN 7 mg/dL (7-18); BUN/Creat Ratio 9.6 RATIO (10-20); Calcium,Total 8.9 mg/dL (8.5-10.1); Chloride 104 mmol/L (98-107); Creatinine, Serum 0.73 mg/dL (0.55-1.02); EST Glomerular Filtration Rate 90 mL/min (>60); Est Glom Filt Rate - Afr Amer 109 mL/min (>60); Estimated Creatinine Clearance 77.96 ml/min; Globulin 4.4 g/dL (2.2-4.2); Glucose 100 mg/dL (74-106); Potassium 4.1 mmol/L (3.5-5.1); Protein, Total 7.7 g/dL (6.4-8.2); Sodium Level 137 mmol/L (136-145); Troponin-I HS 3.3 pg/mL (3.0-53.7)
[2020-09-17 17:51] VITALS: O2SAT 94
[2020-09-17 18:05] LABS: Carboxyhemoglobin Frac (CO) 19.2 % (0.0-1.5)
[2020-09-17 18:58] VITALS: PULSE 64; RESP 18; O2SAT 99
--- NOTE | 2020-09-17 19:48 | ED.RN ---
patients co level at 14. dr. hess aware.
[2020-09-17 20:02] VITALS: RESP 18; O2SAT 96
== END 2020-09-17 20:02 | disposition home or self-care (01) ==
PROVIDERS: Emergency Provider Emergency Medicine; PCP Family Medicine
DX: T58.8X1A Toxic effect of carbon monoxide from other source, accidental (unintentional), initial encounter (principal); R06.02 Shortness of breath; J44.9 Chronic obstructive pulmonary disease, unspecified; M79.7 Fibromyalgia; E03.9 Hypothyroidism, unspecified; E66.9 Obesity, unspecified; F17.210 Nicotine dependence, cigarettes, uncomplicated; Z79.51 Long term (current) use of inhaled steroids; Z79.899 Other long term (current) drug therapy
CPT/HCPCS: 71045; 80053; 82375; 83880; 84484; 85025; 93005; 99283

== ENCOUNTER 2020-09-18 10:11 | Emergency (ER) | payer MEDICAID, SELFPAY ==
[2020-09-17 16:02] VITALS: BMI 54.6
[2020-09-18 10:13] VITALS: BP 155/95; PULSE 87; RESP 22; TEMP 36.4; O2SAT 92; BMI 54.2
[2020-09-18 12:06] LABS: Carboxyhemoglobin Frac (CO) 20.7 % (0.0-1.5)
--- NOTE | 2020-09-18 12:42 | EX.ED.DYSGE1 ---
HPI History of Present Illness Chief Complaint: Poisoning Informant: patient Onset/Context/Timing Onset: Yesterday Context: Gradual Onset Timing: Continuous Quality: Aching and fatigued Location: Generalized Worsened by: Nothing Relieved by: Movement Narrative Narrative: Patient presents with headache and fatigue that has been getting worse since yesterday. Patient states this feels similar to prior episodes of elevated carbon monoxide. Patient states she has been evaluated for this multiple times in the past. Patient states she was told that this is due to her smoking. Patient still smokes 1-1/2 packs of cigarettes per day. Patient is on home oxygen. Patient states that her symptoms improve with activity. Patient denies any nausea or vomiting. Patient denies any fevers or chills. [facility] Medical History (Updated 09/18/20 @ 12:[address] Han Engel, ) Asthma Breast lump in female Chronic obstructive asthma COPD (chronic obstructive pulmonary disease) Fibromyalgia Hearing problem Hidradenitis History of allergic urticaria History of chronic bronchitis History of seizures Hypothyroidism Lymph edema Migraine headache Obesity Polycystic ovaries Pulmonary hypertension Seasonal allergies Sleep apnea Vision problems Vitamin deficiency Home Medications levothyroxine 200 mcg PO DAILY 11/14/14 [History Last Taken Unknown] lamotrigine 25 mg tablet 25 mg PO DAILY tab 10/07/18 [History Last Taken Unknown] metformin 1,000 mg tablet 1,000 mg PO BID 10/07/18 [History Last Taken Unknown] potassium chloride 20 mEq tablet,extended release(part/cryst) 20 meq PO DAILY tab 10/07/18 [History Last Taken Unknown] albuterol sulfate 90 mcg/actuation aerosol inhaler 2 puff INHALATION Q6H PRN #18 g 06/13/19 [Rx Last Taken Unknown] bumetanide 2 mg tablet 2 mg PO DAILY PRN #30 tab 06/13/19 [Rx Last Taken Unknown] levothyroxine 75 mcg PO QHS 02/22/20 [History Last Taken Unknown] cholecalciferol (vitamin D3) 7,000 unit PO DAILY 04/10/20 [History Last Taken Unknown] Allergy/AdvReac Type Severity Reaction Status Date / Time codeine Allergy Severe Anaphylaxis Verified 09/18/20 10:13 levothyroxine sodium Allergy Severe Hives Verified 09/18/20 10:13 medroxyprogesterone acetate Allergy Severe Hives Verified 09/18/20 10:13 [From Provera] Penicillins Allergy Severe Hives Verified 09/18/20 10:13 spironolactone Allergy Severe Hives Verified 09/18/20 10:13 fluticasone [From Flonase] Allergy Intermediate ALLERGY Verified 09/18/20 10:13 Latex, Natural Rubber Allergy Intermediate ALLERGY Verified 09/18/20 10:13 sitagliptin [From Januvia] Allergy Intermediate ALLERGY Verified 09/18/20 10:13 metformin Allergy Mild Hives Verified 09/18/20 10:13 sitagliptin phosphate AdvReac Severe Shortness Verified 09/18/20 10:13 [From Januvia] of breath adhesive tape AdvReac Intermediate SKIN BREAK Verified 09/18/20 10:13 [place] Allergy Severe Swelling Uncoded 09/18/20 10:13 Family History Mother Hypertension CVA (cerebral vascular accident) Cancer Grandfather Cancer lung Heart disease Grandmother Hypertension Cancer Father CVA (cerebral vascular accident) Brother Diabetes Other Alcoholism /alcohol abuse Arthritis Epilepsy Lung cancer Seizures Uterine cancer Surgical History history diagnostic laparoscopy History of dilatation and curettage History of nasal surgery History of tonsillectomy Social History Smoking Status: Current every day smoker tobacco type: cigarettes counseling given: provider counseling and counseling >10 minutes alcohol intake: never substance use type: does not use additional social history: DOES NOT USE ASPIRIN DOES USE IBUPROFEN ROS ROS ED Constitutional Constitutional ED: Denies chills or fever(s) Eyes Eyes: Denies blurry vision or change in vision ENT ENT ED: Denies rhinorrhea or sore throat Cardiovascular Cardiovascular: Denies chest pain or palpitations Respiratory/Chest Respiratory/Chest: Denies cough or dyspnea Gastrointestinal Gastrointestinal: Denies nausea or vomiting Genitourinary Genitourinary ED: Denies dysuria or hematuria Musculoskeletal Musculoskeletal: Denies back pain or neck pain Integumentary Denies abscess or rash Neurologic Neurologic: Reports headache(s) and weakness Allergic/Immunologic Allergic/Immunologic ED: Denies mouth swelling or urticaria EXAM Physical Exam Const Vital Signs: 09/18/20 10:13 09/18/20 11:22 09/18/20 11:23 Temperature 97.5 F L Temperature Source Temporal Pulse Rate 87 Respiratory Rate 22 H Respiratory Effort Normal Respiratory Pattern Normal Blood Pressure 155/95 H Blood Pressure Mean 115 Pulse Ox 92 Oxygen Delivery Method Nasal Cannula Nasal Cannula Oxygen Flow Rate (L/min) 3 4 Positive well nourished, well developed, obese and unkempt General Appearance ED: unkempt and well developed Nutritional Appearance: obese HEENT Reports moist mucous membranes Neck supple and no JVD Resp normal respiratory effort and clear to auscultation bilaterally Cardio regular rate, regular rhythm and no murmurs GI normal to inspection, nondistended, normoactive bowel sounds and non-tender Palpation: soft Extremity normal to inspection General Extremety ED: Negative for edema or tenderness General Extremity: Negative for edema Neuro oriented x3, CN's II-XII intact bilaterally and no sensory deficits noted Sensorium / Orientation: alert Motor Exam: strength 5/5 throughout Psych mental status grossly normal Appearance: unkempt Skin no rashes or lesions noted MDM MDM MDM Narrative Medical decision making narrative: Patient was placed on oxygen. Carboxyhemoglobin level was obtained and was elevated at 20.7. Patient was increased to a nonrebreather mask. Patient will be observed until she feels better. Patient is feeling better on reevaluation. Repeat carboxyhemoglobin via pulse oximeter was 7. Patient was instructed to follow-up with her primary care physician in 5 to 7 days. Patient is instructed to return if worse in any way. Patient understood and was agreeable with the plan. All questions were answered. ABG Data ABG results: ABG 09/18/20 11:22 VBG Carboxyhemoglobin 20.7 H* Discharge Plan Triage Chief Complaint: Poisoning ED Provider: Han Engel Dx/Rx/DC Orders Clinical Impression: Carbon monoxide poisoning Instructions: ED Carbon Monoxide Poisoning Prescriptions: No Action metformin [Glucophage] 1,000 mg tablet 1,000 mg PO BID RF: 0 lamotrigine [Lamictal] 25 mg tablet 25 mg PO DAILY RF: 0 albuterol sulfate 90 mcg/actuation HFA aerosol inhaler 2 puff INHALATION Q6H PRN (Reason: shortness of breath or wheezing) Qty: 18 RF: 3 bumetanide 2 mg tablet 2 mg PO DAILY PRN (Reason: edema) Qty: 30 RF: 0 levothyroxine 175 MCG tablet 200 mcg PO DAILY RF: 0 potassium chloride 20 mEq tablet,ER particles/crystals 20 meq PO DAILY RF: 0 levothyroxine 75 MCG tablet 75 mcg PO QHS RF: 0 cholecalciferol (vitamin D3) 1,000 UNIT tablet 7,000 unit PO DAILY RF: 0 Primary Care Provider: Guero Castillo Referrals: Guero Castillo MD [Primary Care Provider] - 3-5 Days Disposition Disposition: Home, Self Care
[2020-09-18 14:22] VITALS: RESP 18; O2SAT 96
== END 2020-09-18 14:22 | disposition home or self-care (01) ==
PROVIDERS: Emergency Provider Emergency Medicine; PCP Family Medicine
DX: T58.8X1A Toxic effect of carbon monoxide from other source, accidental (unintentional), initial encounter (principal); F17.210 Nicotine dependence, cigarettes, uncomplicated; Z99.81 Dependence on supplemental oxygen; J44.9 Chronic obstructive pulmonary disease, unspecified; M79.7 Fibromyalgia; E03.9 Hypothyroidism, unspecified; E66.9 Obesity, unspecified; Z79.51 Long term (current) use of inhaled steroids; Z79.899 Other long term (current) drug therapy
CPT/HCPCS: 82375; 99282; A4216

== ENCOUNTER 2021-02-25 15:59 | Emergency (ER) | payer MEDICAID, SELFPAY ==
[2021-02-25 16:00] VITALS: BP 163/75; PULSE 81; RESP 21; TEMP 35.8; O2SAT 93; BMI 54.9
--- NOTE | 2021-02-25 16:46 | EKG12_ITS ---
Test Reason : Blood Pressure : / mmHG Vent. Rate : 072 BPM Atrial Rate : 072 BPM P-R Int : 178 ms QRS Dur : 086 ms QT Int : 376 ms P-R-T Axes : 034 -07 030 degrees QTc Int : 411 ms Normal sinus rhythm Poor R wave progression Confirmed by CHRIS MADDOX, JAYLEEN ([id number]), order editor MCKENZIE BOCANEGRA ([id number]) on 03/03/2021 9:11:54 AM Referred By: YAZMIN Confirmed By:JAYLEEN PEREZ MD
--- NOTE | 2021-02-25 16:49 | EDS_ITS ---
HPI History of Present Illness Chief Complaint: Shortness of Breath Narrative Narrative: Patient presents with shortness of breath and body aches that she has had for the last few days. She states that she has history of COPD and is a smoker, but presents because of carbon monoxide. She smokes at least half a pack a day. She wears oxygen when she has her exertional dyspnea. She states she is been short of breath, but does not use aerosolized treatments because none are prescribed to her. Additionally, she cannot take steroids because they raise her blood pressure. She presents because of the body aches and shortness of breath with occasional cough. She denies any fevers or chills. She has not been vaccinated against COVID-19 because she is allergic. [facility] Medical History (Updated 02/25/21 @ 20:17 by Be Fernandes MD) Asthma Breast lump in female Chronic obstructive asthma COPD (chronic obstructive pulmonary disease) Fibromyalgia Hearing problem Hidradenitis History of allergic urticaria History of chronic bronchitis History of seizures Hypothyroidism Lymph edema Migraine headache Obesity Polycystic ovaries Pulmonary hypertension Seasonal allergies Sleep apnea Vision problems Vitamin deficiency Home Medications levothyroxine 200 mcg PO DAILY 11/14/14 [History Last Taken Unknown] lamotrigine 25 mg tablet 25 mg PO DAILY tab 10/07/18 [History Last Taken Unknown] metformin 1,000 mg tablet 1,000 mg PO BID 10/07/18 [History Last Taken Unknown] potassium chloride 20 mEq tablet,extended release(part/cryst) 20 meq PO DAILY t ab 10/07/18 [History Last Taken Unknown] albuterol sulfate 90 mcg/actuation aerosol inhaler 2 puff INHALATION Q6H PRN #18 g 06/13/19 [Rx Last Taken Unknown] bumetanide 2 mg tablet 2 mg PO DAILY PRN #30 tab 06/13/19 [Rx Last Taken Unknown] levothyroxine 75 mcg PO QHS 02/22/20 [History Last Taken Unknown] cholecalciferol (vitamin D3) 7,000 unit PO DAILY 04/10/20 [History Last Taken Unknown] Allergy/AdvReac Type Severity Reaction Status Date / Time codeine Allergy Severe Anaphylaxis Verified 02/25/21 16:00 levothyroxine sodium Allergy Severe Hives Verified 02/25/21 16:00 medroxyprogesterone acetate Allergy Severe Hives Verified 02/25/21 16:00 [From Provera] Penicillins Allergy Severe Hives Verified 02/25/21 16:00 spironolactone Allergy Severe Hives Verified 02/25/21 16:00 fluticasone [From Flonase] Allergy Intermediate ALLERGY Verified 02/25/21 16:00 Latex, Natural Rubber Allergy Intermediate ALLERGY Verified 02/25/21 16:00 sitagliptin [From Januvia] Allergy Intermediate ALLERGY Verified 02/25/21 16:00 metformin Allergy Mild Hives Verified 02/25/21 16:00 sitagliptin phosphate AdvReac Severe Shortness Verified 02/25/21 16:00 [From Januvia] of breath adhesive tape AdvReac Intermediate SKIN BREAK Verified 02/25/21 16:00 [place] Allergy Severe Swelling Uncoded 02/25/21 16:00 Family History Mother Hypertension CVA (cerebral vascular accident) Cancer Grandfather Cancer lung Heart disease Grandmother Hypertension Cancer Father CVA (cerebral vascular accident) Brother Diabetes Other Alcoholism /alcohol abuse Arthritis Epilepsy Lung cancer Seizures Uterine cancer Surgical History history diagnostic laparoscopy History of dilatation and curettage History of nasal surgery History of tonsillectomy Social History Smoking Status: Current every day smoker tobacco type: cigarettes counseling given: provider counseling and counseling >10 minutes alcohol intake: never substance use type: does not use additional social history: DOES NOT USE ASPIRIN DOES USE IBUPROFEN ROS ROS ED ROS Narrative Constitutional: No fever, no chills. HEENT: No sore throat. No neck pain. No loss of vision. No rhinorrhea. Cardiovascular: No chest pain. No palpitations. No pedal edema. Respiratory: Positive cough, positive shortness of breath. Abdominal: No abdominal pain. No nausea. No vomiting. Genitourinary: No dysuria. No hematuria. Musculoskeletal: Positive myalgias. No arthralgias. Neurologic: Occasional headaches. No dizziness. No lightheadedness. Skin: No rash. No change in color. Psychiatric: No depression. No anxiety. EXAM Physical Exam Narrative Exam Narrative: Afebrile. Vital signs noted. HEENT: Normocephalic. Atraumatic. PERRL, EOMI. Neck soft and supple. No point tenderness or step off. Cardiovascular: Regular rate and rhythm. No murmurs, rubs, or gallops appreciated. Respiratory: No tachypnea. Lungs clear to auscultation bilaterally. Decreased breath sounds bilateral bases. Gastrointestinal: Abdomen obese, soft, nontender, with normoactive bowel sounds. No rebound or guarding. Neurological: Awake. Alert. Nonfocal, nonlateralizing. Skin: No rash. Normal color. No pallor. Musculoskeletal: No pedal edema. Full range of motion extremities. Const Vital Signs: 02/25/21 16:00 02/25/21 17:38 02/25/21 17:45 Temperature 96.5 F L Temperature Source Temporal Pulse Rate 81 Respiratory Rate 21 H Respiratory Effort Normal Respiratory Depth Normal Respiratory Pattern Normal Blood Pressure 163/75 H Blood Pressure Mean 104 Pulse Ox 93 96 Oxygen Delivery Method Nasal Cannula Room Air Nasal Cannula Oxygen Flow Rate (L/min) 3 3 02/25/21 18:07 02/25/21 19:34 Temperature Temperature Source Pulse Rate 72 64 Respiratory Rate 16 20 H Respiratory Effort Respiratory Depth Respiratory Pattern Blood Pressure 122/68 H 123/47 H Blood Pressure Mean 86 72 Pulse Ox 96 99 Oxygen Delivery Method Nasal Cannula Non-Rebreather Oxygen Flow Rate (L/min) 3 15 MDM MDM MDM Narrative Medical decision making narrative: Comprehensive work-up was pursued. She is afebrile here. Pulse ox is 93% on room air. She is not tachycardic. I will obtain a chest x-ray and swab her for Covid and influenza. I will obtain baseline laboratories. I will also check her carbon monoxide level. Her CBC shows white count of 12.1, hemoglobin 14.5, platelet count of 239. Her electrolyte panel is grossly unremarkable. Chest x-ray shows no acute process. Covid swab is negative. Her carbon monoxide level is elevated today at 17. She was placed on a nonrebreather. Her cooximetry by fingertip is now at 6. She feels improved. In review of her prior records, she was told that her carbon monoxide levels tend to elevate because she is a smoker and has polycythemia. She states that she undergoes phlebotomy every 3 months, but initially she was getting it every 4 to 6 weeks. She was told that it is imperative for her to quit smoking. She will continue to wear her oxygen at home. She will also get her home checked by the fire department for carbon monoxide levels, but I do feel this is more of a chronic problem for her with her smoking, and she may need to phlebotomy more often then every 3 months. She will follow up with her electrical technology instructor/oncologist. At this point in time, I feel she be discharged safely home with follow-up. Return instructions to the emergency department were reviewed. She feels comfortable going home and states that all of her heating is electric and not natural gas. Patient was discharged in improved and stable condition. Lab Data Attestation: I reviewed the patient's lab results. Labs: Laboratory Results - last 24 hr 02/25/21 02/25/21 17:20 17:20 WBC 12.1 H RBC 6.37 H Hgb 14.5 Hct 49.6 H MCV 77.9 L MCH 22.8 L MCHC 29.2 L RDW Std Deviation 50.1 H RDW Coeff of Radha 19.4 H Plt Count 239 MPV 10.3 Immature Gran % (Auto) 0.400 Neut % (Auto) 69.9 Lymph % (Auto) 20.0 [place] % (Auto) 6.6 Eos % (Auto) 2.4 Baso % (Auto) 0.7 Absolute Neuts (auto) 8.4 H Absolute Lymphs (auto) 2.41 Nucleated RBC % 0 Sodium 139 Potassium 4.3 Chloride 106 Carbon Dioxide 27.0 Anion Gap 6 BUN 8 Creatinine 0.64 Estim Creat Clear Calc 88.93 Est GFR (MDRD) Af Amer 127 Est GFR (MDRD) Non-Af 105 BUN/Creatinine Ratio 12.5 Glucose 104 Calcium 9.3 Troponin I High Sens 4 ABG Data ABG results: ABG 02/25/21 17:20 VBG O2 Content 16.1 H VBG Oxyhemoglobin 78.0 VBG Carboxyhemoglobin 17.7 H VBG Methemoglobin 0.5 Hemoglobin 14.9 Radiography Diagnostic Testing: Clinical Impression(s) from Imaging Studies Chest X-Ray 02/25/21 17:15 IMPRESSION: No visualized acute process Electronically Signed: Main Strange MD at 18:23 EST , Service support , Discharge Plan Triage Chief Complaint: Shortness of Breath ED Provider: Be Fernandes Dx/Rx/DC Orders Clinical Impression: Carbon monoxide poisoning, COPD (chronic obstructive pulmonary disease), Polycythemia Instructions: ED Carbon Monoxide Poisoning Prescriptions: No Action metformin [Glucophage] 1,000 mg tablet 1,000 mg PO BID RF: 0 lamotrigine [Lamictal] 25 mg tablet 25 mg PO DAILY RF: 0 albuterol sulfate 90 mcg/actuation HFA aerosol inhaler 2 puff INHALATION Q6H PRN (Reason: shortness of breath or wheezing) Qty: 18 RF: 3 bumetanide 2 mg tablet 2 mg PO DAILY PRN (Reason: edema) Qty: 30 RF: 0 levothyroxine 175 MCG tablet 200 mcg PO DAILY RF: 0 potassium chloride 20 mEq tablet,ER particles/crystals 20 meq PO DAILY RF: 0 levothyroxine 75 MCG tablet 75 mcg PO QHS RF: 0 cholecalciferol (vitamin D3) 1,000 UNIT tablet 7,000 unit PO DAILY RF: 0 Primary Care Provider: Guero Castillo Referrals: Guero Castillo MD [Primary Care Provider] - 03/04/21 (STOP SMOKING!) Disposition Disposition: Home, Self Care
--- NOTE | 2021-02-25 17:15 | RAD_ITS ---
STUDY: X-RAY CHEST REASON FOR EXAM: Female, 50 years old. shortness of breath TECHNIQUE: Single PA view of the chest. COMPARISON: September 17, 2020 and September 16, 2013 FINDINGS: No visualized consolidation. Chronic prominence of the interstitium in the right lower lobe which has been demonstrated since 2013 and appears to be related to the bronchovascular structures in this region appearing more prominent due to the scoliotic curvature. There is no demonstrated pleural abnormality. Normal size heart. Normal mediastinum and uma. Normal visualized pulmonary arteries. Normal visualized aortic arch and descending thoracic aorta. There is a dextroscoliosis of the thoracic spine. Normal visualized ribs, clavicles, and shoulders. There is no demonstrated abnormality of the visualized soft tissue structures of the upper abdomen. RAD/Chest 1 View IMPRESSION: No visualized acute process Electronically Signed: Main Strange MD at 18:23 EST , Service support ,
[2021-02-25 17:33] LABS: Absolute Lymphocyte Count 2.41 X10^3/uL (0.83-4.51); Absolute Neutrophil Count 8.4 X10^3/uL (2.0-7.7); Basophil# 0.08 X10^3/uL; Basophil% 0.7 % (0-1); Eosinophil# 0.29 X10^3/uL; Eosinophils% 2.4 % (0-5); Hematocrit 49.6 % (37-47); Hemoglobin 14.5 g/dL (12.0-15.0); Lymphocyte # 2.41 X10^3/ul (0.83-4.51); Mean Corp Hgb Conc 29.2 g/dL (32-36); Mean Corpuscular Hgb 22.8 pg (27.0-32.0); Mean Corpuscular Volume 77.9 fL (81-99); Mean Platelet Vol. 10.3 fl (6.2-12.0); Monocyte# 0.79 X10^3/uL; Monocyte% 6.6 % (0-10); NRBC Flagged by Analyzer 0 % (0-5); Neutrophil # 8.44 X10^3/uL (2.7-7.7); Neutrophil % 69.9 % (47-70); Platelet Count 239 K/mm3 (150-450); RBC Distribution Width CV 19.4 % (11.6-14.6); RBC Distribution Width SD 50.1 fl (35.1-43.9); Red Blood Count 6.37 M/mm3 (4.2-5.4); White Blood Count 12.1 K/mm3 (4.4-11.0)
[2021-02-25 17:38] VITALS: O2SAT 96
[2021-02-25 17:45] VITALS: O2SAT 97
[2021-02-25 17:56] LABS: Anion Gap 6 (5-15); BUN 8 mg/dL (7-18); BUN/Creat Ratio 12.5 RATIO (10-20); Calcium,Total 9.3 mg/dL (8.5-10.1); Chloride 106 mmol/L (98-107); Creatinine, Serum 0.64 mg/dL (0.55-1.02); EST Glomerular Filtration Rate 105 mL/min (>60); Est Glom Filt Rate - Afr Amer 127 mL/min (>60); Estimated Creatinine Clearance 88.93 ml/min; Glucose 104 mg/dL (74-106); Potassium 4.3 mmol/L (3.5-5.1); Sodium Level 139 mmol/L (136-145); Troponin-I HS 4 pg/mL (3.0-54.0)
[2021-02-25 18:02] LABS: Carboxyhemoglobin Frac (CO) 17.7 % (0.0-1.5); Methemoglobin 0.5 % (0.0-1.5); OXYGEN CONTENT OF HEMOGLOBIN 16.1 VOL%O2 (6.7-15.6)
[2021-02-25 18:07] VITALS: BP 122/68; PULSE 72; RESP 16; O2SAT 96
[2021-02-25 19:34] VITALS: BP 123/47; PULSE 64; RESP 20; O2SAT 99
[2021-02-25 20:00] VITALS: BP 112/67; O2SAT 98
== END 2021-02-25 20:25 | disposition home or self-care (01) ==
PROVIDERS: Emergency Provider Emergency Medicine; PCP Family Medicine
DX: T58.91XA Toxic effect of carbon monoxide from unspecified source, accidental (unintentional), initial encounter (principal); D75.1 Secondary polycythemia; J44.9 Chronic obstructive pulmonary disease, unspecified; Z20.822 Contact with and (suspected) exposure to COVID-19; I27.20 Pulmonary hypertension, unspecified; E03.9 Hypothyroidism, unspecified; M79.7 Fibromyalgia; G47.30 Sleep apnea, unspecified; E66.9 Obesity, unspecified; F17.210 Nicotine dependence, cigarettes, uncomplicated; Z79.84 Long term (current) use of oral hypoglycemic drugs; Z79.890 Hormone replacement therapy; Z79.899 Other long term (current) drug therapy
CPT/HCPCS: 71045; 80048; 82375; 84484; 85025; 87426; 87804; 93005; 99285; A4216

== ENCOUNTER 2021-02-26 14:12 | Emergency (ER) | payer MEDICAID, SELFPAY ==
[2021-02-26 14:13] VITALS: BP 192/77; PULSE 102; RESP 22; TEMP 35.8; O2SAT 95; BMI 54.7
--- NOTE | 2021-02-26 14:52 | EX.ED.VIS.UR ---
HPI HPI - URI History of Present Illness Chief Complaint: Shortness of Breath Informant: patient Onset/Context/Timing Onset: Today Current Severity: Mild Maximum Severity: Mild Associated Symptoms Associated Symptoms: Positive for Headache; Negative for Nasal Congestion Narrative Narrative: 50-year-old female history of polycythemia and hypothyroidism. For the last year she has had recurrent ER visits for carbon monoxide levels that were elevated. She does smoke 1/2 packs of cigarettes a day. She states she lives in apartment. All of her utilities are electric. She has no gas burning stove. Says she does not even own a car nor does she have a garage in the apartment. Said none of her neighbors problems. She said they have come and checked her Apt. 2 or 3 times and each time the car but not side level was normal. She has 2 cats at all bothered by this at all. She was seen in the emergency department yesterday. She also denies any kerosene heaters in her home. She does not work outside the house. Prior similar symptoms: Yes Recent Illness/Hospitalization: No ROS ROS ED ROS Narrative Headache Review of Systems ROS Unobtainable: Denies due to encephalopathy Constitutional Constitutional ED: Denies fever(s) Eyes Eyes: Denies change in vision ENT ENT ED: Denies ear pain Cardiovascular Cardiovascular: Denies chest pain Respiratory/Chest Respiratory/Chest: Denies dyspnea Gastrointestinal Gastrointestinal: Reports nausea; Denies abdominal pain, diarrhea or vomiting Genitourinary Genitourinary ED: Denies dysuria Musculoskeletal Musculoskeletal: Denies myalgias Integumentary Denies rash Neurologic Neurologic: Reports headache(s) Psychiatric Psychiatric: Denies depression Endocrine Endocrinology: Denies polyuria Hematologic/Lymphatic Hematologic/Lymphatic: Denies easy bruising Allergic/Immunologic Allergic/Immunologic ED: Denies urticaria [facility] Medical History (Updated 02/26/21 @ 15:[address] David Lopez MD) Asthma Breast lump in female Chronic obstructive asthma COPD (chronic obstructive pulmonary disease) Fibromyalgia Hearing problem Hidradenitis History of allergic urticaria History of chronic bronchitis History of seizures Hypothyroidism Lymph edema Migraine headache Obesity Polycystic ovaries Pulmonary hypertension Seasonal allergies Sleep apnea Vision problems Vitamin deficiency Home Medications levothyroxine 200 mcg PO DAILY 11/14/14 [History Last Taken Unknown] lamotrigine 25 mg tablet 25 mg PO DAILY tab 10/07/18 [History Last Taken Unknown] metformin 1,000 mg tablet 1,000 mg PO BID 10/07/18 [History Last Taken Unknown] potassium chloride 20 mEq tablet,extended release(part/cryst) 20 meq PO DAILY tab 10/07/18 [History Last Taken Unknown] albuterol sulfate 90 mcg/actuation aerosol inhaler 2 puff INHALATION Q6H PRN #18 g 06/13/19 [Rx Last Taken Unknown] bumetanide 2 mg tablet 2 mg PO DAILY PRN #30 tab 06/13/19 [Rx Last Taken Unknown] levothyroxine 75 mcg PO QHS 02/22/20 [History Last Taken Unknown] cholecalciferol (vitamin D3) 7,000 unit PO DAILY 04/10/20 [History Last Taken Unknown] Allergy/AdvReac Type Severity Reaction Status Date / Time codeine Allergy Severe Anaphylaxis Verified 02/26/21 14:13 levothyroxine sodium Allergy Severe Hives Verified 02/26/21 14:13 medroxyprogesterone acetate Allergy Severe Hives Verified 02/26/21 14:13 [From Provera] Penicillins Allergy Severe Hives Verified 02/26/21 14:13 spironolactone Allergy Severe Hives Verified 02/26/21 14:13 fluticasone [From Flonase] Allergy Intermediate ALLERGY Verified 02/26/21 14:13 Latex, Natural Rubber Allergy Intermediate ALLERGY Verified 02/26/21 14:13 sitagliptin [From Januvia] Allergy Intermediate ALLERGY Verified 02/26/21 14:13 metformin Allergy Mild Hives Verified 02/26/21 14:13 sitagliptin phosphate AdvReac Severe Shortness Verified 02/26/21 14:13 [From Januvia] of breath adhesive tape AdvReac Intermediate SKIN BREAK Verified 02/26/21 14:13 [place] Allergy Severe Swelling Uncoded 02/26/21 14:13 Family History Mother Hypertension CVA (cerebral vascular accident) Cancer Grandfather Cancer lung Heart disease Grandmother Hypertension Cancer Father CVA (cerebral vascular accident) Brother Diabetes Other Alcoholism /alcohol abuse Arthritis Epilepsy Lung cancer Seizures Uterine cancer Surgical History history diagnostic laparoscopy History of dilatation and curettage History of nasal surgery History of tonsillectomy Social History Smoking Status: Current every day smoker tobacco type: cigarettes counseling given: provider counseling and counseling >10 minutes alcohol intake: never substance use type: does not use additional social history: DOES NOT USE ASPIRIN DOES USE IBUPROFEN EXAM Physical Exam Narrative Exam Narrative: 42-year-old female no acute distress vital signs stable afebrile. Currently on oxygen pulse ox is 95% on 3 L. H EENT exam unremarkable. Osteomas. Neck nontender no lymphadenopathy. Lungs clear to auscultation bilaterally. Heart regular rate and rhythm no murmur. Abdomen obese with soft nontender normal bowel sounds no peritoneal signs. Moving all 4 extremities. Calves are nontender without edema. Neurologically she is awake alert with no focal motor deficits. Const Vital Signs: 02/26/21 14:13 02/26/21 15:26 Temperature 96.5 F L Temperature Source Temporal Pulse Rate 102 H Respiratory Rate 22 H Respiratory Effort Short of Breath Blood Pressure 192/77 H Blood Pressure Mean 115 Pulse Ox 95 Oxygen Delivery Method Nasal Cannula Oxygen Flow Rate (L/min) 3 Positive well nourished, well developed and obese; Negative for cachectic or contractures General Appearance ED: well developed and NAD; Negative for cachectic, contractures, cyanotic, diaphoretic or pallor Nutritional Appearance: obese; Negative for cachectic HEENT Reports moist mucous membranes normocephalic and atraumatic; Negative for scalp tenderness Face and Sinus: Negative for sinus tenderness External Ear: external ears normal Eyes PERRL and EOMs intact bilaterally General Eye ED: Negative for pale conjunctiva or scleral icterus Neck no lymphadenopathy, supple, no meningeal signs and no JVD General: Negative for anterior neck swelling or lymphadenopathy Resp normal respiratory effort and clear to auscultation bilaterally Auscultation: Negative for rales, rhonchi or wheezes Cardio S1 normal heart sound, S2 normal heart sound and no murmurs Rate: regular rate Rhythm: regular rhythm GI non-distended and no masses Inspection: Negative for abdominal distention Auscultation: normoactive bowel sounds; Negative for hyperactive bowel sounds Palpation: soft; Negative for tender or guarding Back/Spine no CVA tenderness and normal ROM General Back: Negative for CVA tenderness Cervical Spine: Negative for cervical spine tenderness Extremity normal to inspection and full ROM General Extremety ED: Negative for cyanosis or tenderness General Extremity: Negative for cyanosis Neuro oriented x3 and No CN's II-XII intact bilaterally Sensorium / Orientation: alert, oriented to person, oriented to place and oriented to time; Negative for orientation impaired, lethargic or stuporous Psych mental status grossly normal Mood & Affect: Negative for depressed or tearful Skin General Skin Exam: Negative for jaundice or pallor Lesions: no lesions Rashes: no rashes MDM MDM MDM Narrative Medical decision making narrative: 50-year-old female history of 1-1/2 packs of cigarettes per day smoking. Returns for recurrent symptoms consistent with elevated carbon monoxide level. She has had documented a carbon monoxide levells as high of 20. Yesterday she was seen it was 17. Repeat exam at 3:58 PM. She will be on face max oxygen for the next hour and discharged home. Lab Data Attestation: I reviewed the patient's lab results. Lab results narrative: 14.7. Which is improved from 17 yesterday and 20 in the last several days. ABG Data ABG results: ABG 02/26/21 15:13 VBG Carboxyhemoglobin 14.7 H Discharge Plan Triage Chief Complaint: Shortness of Breath ED Provider: David Lopez Dx/Rx/DC Orders Clinical Impression: Carbon monoxide poisoning Instructions: ED Carbon Monoxide Poisoning Prescriptions: No Action metformin [Glucophage] 1,000 mg tablet 1,000 mg PO BID RF: 0 lamotrigine [Lamictal] 25 mg tablet 25 mg PO DAILY RF: 0 albuterol sulfate 90 mcg/actuation HFA aerosol inhaler 2 puff INHALATION Q6H PRN (Reason: shortness of breath or wheezing) Qty: 18 RF: 3 bumetanide 2 mg tablet 2 mg PO DAILY PRN (Reason: edema) Qty: 30 RF: 0 levothyroxine 175 MCG tablet 200 mcg PO DAILY RF: 0 potassium chloride 20 mEq tablet,ER particles/crystals 20 meq PO DAILY RF: 0 levothyroxine 75 MCG tablet 75 mcg PO QHS RF: 0 cholecalciferol (vitamin D3) 1,000 UNIT tablet 7,000 unit PO DAILY RF: 0 Primary Care Provider: Guero Castillo Referrals: Guero Castillo MD [Primary Care Provider] - 3-5 Days if not improving Activity Restrictions/Additional Instructions: No specific reason why your carbon monoxide levels are still high. They need to come out and check your house again and try to come up with a reason why your carbon monoxide levels are elevated. Follow-up with your doctor as needed. Disposition Disposition: Home, Self Care
[2021-02-26 15:30] LABS: Carboxyhemoglobin Frac (CO) 14.7 % (0.0-1.5)
[2021-02-26 17:10] VITALS: O2SAT 97
== END 2021-02-26 17:11 | disposition home or self-care (01) ==
PROVIDERS: Emergency Provider Emergency Medicine; PCP Family Medicine
DX: T58.91XA Toxic effect of carbon monoxide from unspecified source, accidental (unintentional), initial encounter (principal); R51.9 Headache, unspecified; Y92.9 Unspecified place or not applicable; D75.1 Secondary polycythemia; E03.9 Hypothyroidism, unspecified; F17.210 Nicotine dependence, cigarettes, uncomplicated; J44.9 Chronic obstructive pulmonary disease, unspecified; M79.7 Fibromyalgia; E66.9 Obesity, unspecified; Z68.43 Body mass index [BMI] 50.0-59.9, adult; I27.20 Pulmonary hypertension, unspecified; G47.30 Sleep apnea, unspecified; E28.2 Polycystic ovarian syndrome; Z79.899 Other long term (current) drug therapy; Z79.890 Hormone replacement therapy; Z79.84 Long term (current) use of oral hypoglycemic drugs
CPT/HCPCS: 82375; 99284

== ENCOUNTER 2021-05-22 20:00 | Outpatient (CLI) | payer MEDICAID, SELFPAY | END 2021-05-22 23:59 | disposition home or self-care (01) | PROVIDERS: PCP Family Medicine; Visit Provider Nurse Practitioner Acute Care | DX: G47.33 Obstructive sleep apnea (adult) (pediatric) (principal); Z99.89 Dependence on other enabling machines and devices | CPT/HCPCS: 95811 ==

== ENCOUNTER 2021-06-04 10:44 | Outpatient (CLI) | payer MEDICAID, SELFPAY ==
--- NOTE | 2021-06-04 10:48 | ECHOCS_ITS ---
Reason For Study: Murmur Procedure This was a 2D Doppler, Color Flow transthoracic echocardiogram. Contrast injection was performed. Exam performed in department. Left Ventricle Normal LV size. Left ventricular systolic function is normal. The estimated ejection fraction is 55 %. Normal diastology for age. No regional wall motion abnormalities noted. Right Ventricle Normal RV size. Normal systolic function. Atria Normal left atrium. Normal right atrium. Mitral Valve Normal mitral valve. Tricuspid Valve Normal tricuspid valve. Mild to moderate (1-2+) tricuspid valve insufficiency. Pulmonary artery systolic pressure is 44 mmHg. Aortic Valve Normal aortic valve. Pulmonic Valve Normal pulmonic valve. Great Vessels Normal aortic root. The pulmonary artery is normal size. Normal inferior vena cava. Pericardium/Pleural No pericardial effusion. Medication Diluted definity 3ml given slow IV push to enhance endocardial definition. MMode/2D Measurements & Calculations LVIDd: 5.7 cm IVSd: 1.1 cm Ao root diam: 2.9 cm LVIDs: 3.6 cm LVPWd: 1.1 cm RVDd: 3.5 cm FS: 35.7 % LAV(MOD-bp): 48.9 ml LVAd ap4: 35.0 cm2 SV(MOD-sp4): 74.7 ml LAV(MOD-bp) Indexed: 21.0 ml/m2 LVLd ap4: 8.1 cm LAV(MOD-sp2): 59.8 ml EDV(MOD-sp4): 122.0 ml LAV(MOD-sp4): 38.6 ml EDV(sp4-el): 128.9 ml LVAs ap4: 20.0 cm2 LVLs ap4: 6.8 cm ESV(MOD-sp4): 47.3 ml ESV(sp4-el): 49.7 ml EF(MOD-sp4): 61.2 % EF(sp4-el): 61.4 % SV(sp4-el): 79.2 ml LA A4 area: 15.6 cm2 LA dimension(2D): 3.7 cm RA A4 area: 9.9 cm2 Doppler Measurements & Calculations MV E max george: 128.6 cm/sec Lat Peak E' George: 12.1 cm/sec Med Peak E' George: 7.4 cm/sec MV A max george: 94.7 cm/sec E/E' lat: 10.6 E/E' med: 17.3 MV E/A: 1.4 Ao V2 max: 169.9 cm/sec LV V1 max: 136.0 cm/sec PA V2 max: 165.6 cm/sec Ao max P.5 mmHg LV V1 max P.4 mmHg PA V2 mean: 112.5 cm/sec Ao V2 mean: 116.3 cm/sec PA V2 VTI: 33.2 cm Ao mean P.0 mmHg Ao V2 VTI: 34.3 cm TR max george: 315.5 cm/sec TR max P.8 mmHg ECHO/Echo Complete W/ Contrast Interpretation Summary Normal LV size. Left ventricular systolic function is normal. The estimated ejection fraction is 55 %. Pulmonary artery systolic pressure is 44 mmHg. Normal diastology for age. Contrast injection was performed. Ordering Physician: Chula Valdovinos Referring Physician: Guero Castillo Performed By: Padmini Coy, TON, RVT
== END 2021-06-04 23:59 | disposition home or self-care (01) ==
LOC: CVS 10:46
PROVIDERS: PCP Family Medicine; Referring Provider Internal Medicine Endocrinology, Diabetes & Metabolism; Visit Provider Internal Medicine Endocrinology, Diabetes & Metabolism
DX: R01.1 Cardiac murmur, unspecified (principal)
CPT/HCPCS: 93306; Q9957; A4216; C8929

== ENCOUNTER → 2021-10-08 | Outpatient (CLI) | payer MEDICAID, SELFPAY ==
[2021-10-08 13:59] VITALS: PULSE 105; PULSE 107; PULSE 112; PULSE 116; PULSE 121; PULSE 90; O2SAT 87; O2SAT 92; O2SAT 93
--- NOTE | 2021-10-08 14:01 | CPS ---
Patient wears home O2 at 3 lpm at night and pulse dose while ambulating. SpO2 on Room Air maintained at 93-94% at rest. Started testing on room air, at the 1st minute after walking about 110 ft, SpO2 87%. Patient stopped and applied their home O2 at 3 lpm pulse dose, SpO2 recovered to 95%. Patient walked the rest of the 490 ft over the next four minutes without taking a break. At the 5th minute evelyn, patient did not want to continue due to being fatigued and back pain. Rated SOB on the scale as very slight.
--- NOTE | 2021-10-09 05:31 | WT_ITS ---
PSN 6 Minute Walk Test 6 Minute Walk Test 6 Minute Walk Test: 6 Minute Walk Test PSN:6-Minute Walk Test Start: 10/08/21 13:59 Freq: Status: Active Protocol: [id number] Document 10/08/21 13:59 [email or web address] (Rec: 10/08/21 14:06 KAELYNON [id number]) 6 Minute Walk Test Date Performed 10/08/21 Time Performed 12:45 Height 5 ft 3 in Weight: 149.685 kg Weight in Pounds 330.[address]: Franky Angelo Assistive device used: None Pre-test Oxygen Delivery Method Room Air Pulse Ox (%) 93 Pulse Rate (60-100 beats/min) 90 Dyspnea Vania Scale (0-10) 0 Exertion Vania Scale (6-20) 6 1st minute Oxygen Delivery Method Room Air Pulse Ox (%) 87 Pulse Rate (60-100 beats/min) 107 H 2nd minute Oxygen Flow Rate (L/min) (L/min) 3 Oxygen Delivery Method Nasal Cannula Pulse Ox (%) 93 Pulse Rate (60-100 beats/min) 105 H 3rd minute Oxygen Flow Rate (L/min) (L/min) 3 Oxygen Delivery Method Nasal Cannula Pulse Ox (%) 92 Pulse Rate (60-100 beats/min) 112 H 4th minute Oxygen Flow Rate (L/min) (L/min) 3 Oxygen Delivery Method Nasal Cannula Pulse Ox (%) 93 Pulse Rate (60-100 beats/min) 116 H 5th minute Oxygen Flow Rate (L/min) (L/min) 3 Oxygen Delivery Method Nasal Cannula Pulse Ox (%) 93 Pulse Rate (60-100 beats/min) 121 H Dyspnea Vania Scale (0-10) 1 Exertion Vania Scale (6-20) 16 Post-test Oxygen Flow Rate (L/min) (L/min) 3 Oxygen Delivery Method Nasal Cannula Full Laps Walked 10 Partial Lap, Number of Tiles Walked 10 Total Distance Walked (ft) 600 10/08/21 14:01 Cardiopulmonary Services by Kelsey Townsend Patient wears home O2 at 3 lpm at night and pulse dose while ambulating. SpO2 on Room Air maintained at 93-94% at rest. Started testing on room air, at the 1st minute after walking about 110 ft, SpO2 87%. Patient stopped and applied their home O2 at 3 lpm pulse dose, SpO2 recovered to 95%. Patient walked the rest of the 490 ft over the next four minutes without taking a break. At the 5th minute evelyn, patient did not want to continue due to being fatigued and back pain. Rated SOB on the scale as very slight. Initialized on 10/08/21 14:01 - END OF NOTE Interpretation Interpretation: The patient was noted to be 93% on room air at rest, but desaturated to 87% after 1 minute of ambulation. Patient was placed on 3 L pulsed dose with impro vement of 95% was able to complete her 6-minute walk. In summary, the patient traveled 600 feet over the course of 6 minutes with no assistive devices and 1 break. Patient did have significant tachycardia as high as 121 bpm. These findings are consistent with a respiratory limitation exercise tolerance. Recommendations Recommendations: No supplemental oxygen is indicated at rest, but 3 L pulsed dose would be indicated with any ambulation.
== END | disposition home or self-care (01) ==
PROVIDERS: PCP Family Medicine; Referring Provider Internal Medicine Critical Care Medicine; Visit Provider Internal Medicine Critical Care Medicine
DX: J44.9 Chronic obstructive pulmonary disease, unspecified (principal)
CPT/HCPCS: 94618

== ENCOUNTER → 2021-10-15 | Outpatient (CLI) | payer MEDICAID, SELFPAY ==
--- NOTE | 2021-10-16 13:37 | PFT ---
INTRODUCTION: The patient is a 51-year-old female that presents for pulmonary function studies secondary to a diagnosis of COPD. Respiratory therapy reported good patient effort. Bronchodilators were used during testing. INTERPRETATION: Forced expiration spirometry demonstrates the presence of a severe large airways obstructive ventilatory defect. There was no significant response to aerosolized bronchodilators. Spirograms are of fair quality and plateau gradually indicating slow emptying of the lungs. Body plethysmography was performed and revealed a decreased TLC to 2.8 L, 59% of predicted, indicative of a severe restrictive ventilatory impairment. Diffusing capacity by single breath CO is severely reduced at 29% of predicted. When compared to PFTs from January 2020, there has been an 18% reduction in total lung capacity and 19% reduction in DLCO. IMPRESSION: Irreversible severe mixed ventilatory defect with symmetric reduction in diffusing capacity. There has been interval worsening in the patient's PFT since January 2020.
== END | disposition home or self-care (01) ==
LOC: PSN 12:46
PROVIDERS: PCP Family Medicine; Referring Provider Internal Medicine Critical Care Medicine; Visit Provider Internal Medicine Critical Care Medicine
DX: J44.9 Chronic obstructive pulmonary disease, unspecified (principal)
CPT/HCPCS: 94060; 94726; 94729

== ENCOUNTER → 2022-02-11 | Outpatient (CLI) | payer MEDICAID, SELFPAY | END | disposition home or self-care (01) | LOC: PSN 11:58 | PROVIDERS: PCP Family Medicine; Referring Provider Internal Medicine Cardiovascular Disease; Visit Provider Internal Medicine Cardiovascular Disease | DX: R00.0 Tachycardia, unspecified (principal) | CPT/HCPCS: 93225; 93226 ==

== ENCOUNTER 2022-02-18 13:25 | Emergency (ER) | payer MEDICAID, SELFPAY ==
[2022-02-18 13:26] VITALS: BP 121/97; PULSE 87; RESP 16; TEMP 36.8; O2SAT 94; BMI 58.4
--- NOTE | 2022-02-18 13:47 | ED.RN ---
Patient states I know my carbon monoxide levels are high stating this is similar symptoms as when she had that. Portable pCO level reads 7 on portable sensor, SpO2 92% on same portable sensor which matches traffic monitor specialist SpO2 of 92%. Pt. requests to be placed on NRB mask, advised patient the symptoms presenting and presenting oxygen level does not require that much oxygen and with her smoking hx and on home oxygen it could exacerbate her symptoms. Continued on 3lpm at time until doctor advises change.
[2022-02-18 14:00] VITALS: BP 136/97; PULSE 83; O2SAT 97
--- NOTE | 2022-02-18 14:30 | EX.ED.DYSGE1 ---
HPI History of Present Illness Chief Complaint: General Illness Informant: patient Onset/Context/Timing Onset: Weeks (1) Context: Gradual Onset Timing: Continuous Quality: Aching Location: Generalized Worsened by: Walking Relieved by: Nothing Narrative Narrative: Presents with lightheadedness and body aches that have been getting worse over the last week. Patient states she has had a headache that began yesterday. Patient states she feels achy all over. Patient states her symptoms are worse with walking. Patient states nothing seems to help with them. Patient states it is gradually getting worse. Patient states it feels similar to when she had carbon monoxide poisoning in the past. Patient denies any fevers or chills. [facility] Medical History Arthritis Asthma Back pain Blood disorder Breast lump in female Carbon monoxide poisoning Chronic cough Chronic obstructive asthma COPD (chronic obstructive pulmonary disease) CPAP (continuous positive airway pressure) dependence Fibromyalgia Hearing problem Heartburn Hidradenitis History of allergic urticaria History of chronic bronchitis History of echocardiogram History of edema History of pain when walking History of seizures History of stress test Hx of cardiac murmur Hypothyroidism Hypoxemia Leg cramps Low iron Lymph edema Migraine headache Obesity On home oxygen therapy Polycystic bilateral ovaries Polycystic ovaries Polycythemia Pulmonary hypertension Restless legs Seasonal allergies Shortness of breath on exertion Sleep apnea Smoker Tobacco abuse Vision problems Vitamin deficiency Wears glasses Home Medications metformin 1,000 mg tablet (Glucophage) 1,000 mg PO BID 10/07/18 [History Last Taken Unknown] bumetanide 2 mg tablet 2 mg PO DAILY PRN edema #30 tabs 06/13/19 [Rx Last Taken Unknown] cholecalciferol (vitamin D3) 25 mcg (1,000 unit) tablet 7,000 unit PO DAILY 04/10/20 [History Last Taken Unknown] potassium chloride 20 mEq tablet,extended release(part/cryst) 20 meq PO DAILY 10/29/21 [History Last Taken Unknown] levothyroxine 200 mcg tablet 200 mcg PO DAILY 01/22/22 [History Last Taken Unknown] Allergy/AdvReac Type Severity Reaction Status Date / Time bee venom protein (honey bee) Allergy Severe Swelling Verified 02/18/22 13:28 codeine Allergy Severe Anaphylaxis Verified 02/18/22 13:28 levothyroxine sodium Allergy Severe Hives Verified 02/18/22 13:28 medroxyprogesterone acetate Allergy Severe Hives Verified 02/18/22 13:28 [From Provera] Penicillins Allergy Severe Hives Verified 02/18/22 13:28 spironolactone Allergy Severe Hives Verified 02/18/22 13:28 fluticasone [From Flonase] Allergy Intermediate ALLERGY Verified 02/18/22 13:28 Latex, Natural Rubber Allergy Intermediate ALLERGY Verified 02/18/22 13:28 sitagliptin [From Januvia] Allergy Intermediate ALLERGY Verified 02/18/22 13:28 metformin Allergy Mild Hives Verified 02/18/22 13:28 sitagliptin phosphate AdvReac Severe Shortness Verified 02/18/22 13:28 [From Januvia] of breath adhesive tape AdvReac Intermediate SKIN BREAK Verified 02/18/22 13:28 DOWN Family History Mother Hypertension CVA (cerebral vascular accident) Cancer Grandfather Cancer lung Heart disease Grandmother Hypertension Cancer Father CVA (cerebral vascular accident) Brother Diabetes Other Alcoholism /alcohol abuse Arthritis Epilepsy Lung cancer Seizures Uterine cancer Surgical History history diagnostic laparoscopy History of nasal surgery History of tonsillectomy Social History Smoking Status: Current every day smoker tobacco type: cigarettes counseling given: provider counseling and counseling >10 minutes alcohol intake: never substance use type: does not use caffeine: Yes Type: tea Number of servings: 2 additional social history: DOES NOT USE ASPIRIN DOES USE IBUPROFEN ROS ROS ED Constitutional Constitutional ED: Denies chills or fever(s) Eyes Eyes: Denies blurry vision or change in vision ENT ENT ED: Denies rhinorrhea or sore throat Cardiovascular Cardiovascular: Denies chest pain or palpitations Respiratory/Chest Respiratory/Chest: Denies cough or dyspnea Gastrointestinal Gastrointestinal: Denies nausea or vomiting Genitourinary Genitourinary ED: Denies dysuria or hematuria Musculoskeletal Musculoskeletal: Reports back pain and myalgias Integumentary Reports rash; Denies abscess Neurologic Neurologic: Reports headache(s) and weakness Allergic/Immunologic Allergic/Immunologic ED: Denies mouth swelling or urticaria EXAM Physical Exam Const Vital Signs: 02/18/22 13:26 02/18/22 13:58 02/18/22 14:00 Temperature 98.2 F Temperature Source Temporal Pulse Rate 87 83 Respiratory Rate 16 Respiratory Effort Normal Non-Labored Blood Pressure 121/97 H 136/97 H Blood Pressure Mean 105 110 Pulse Ox 94 97 Oxygen Delivery Method Nasal Cannula Oxygen Flow Rate (L/min) 3 02/18/22 14:49 02/18/22 15:32 02/18/22 16:43 Temperature Temperature Source Pulse Rate 74 Respiratory Rate Respiratory Effort Blood Pressure 136/75 H Blood Pressure Mean 95 Pulse Ox 94 93 92 Oxygen Delivery Method Nasal Cannula Nasal Cannula Nasal Cannula Oxygen Flow Rate (L/min) 3 3 3 Positive well nourished, well developed, obese and unkempt General Appearance ED: unkempt, well developed and NAD Nutritional Appearance: obese HEENT Reports moist mucous membranes Neck supple and no JVD Resp normal respiratory effort Auscultation: wheezes expiratory wheezes and scattered wheezes Cardio regular rate, regular rhythm and no murmurs GI normal to inspection, nondistended, normoactive bowel sounds and non-tender Palpation: soft Extremity normal to inspection General Extremety ED: Negative for edema or tenderness General Extremity: Negative for edema Neuro oriented x3, CN's II-XII intact bilaterally and no sensory deficits noted Sensorium / Orientation: alert Motor Exam: strength 5/5 throughout Psych mental status grossly normal Appearance: unkempt Skin no rashes or lesions noted MDM MDM MDM Narrative Medical decision making narrative: CBC was within normal limits. Comprehensive metabolic profile was within normal limits. Carboxyhemoglobin was slightly elevated at 13.6. This is consistent with her history of smoking. COVID-19 rapid antigen was obtained and was negative. Influenza A and influenza B rapid antigens were obtained and were negative. PA and lateral chest x-ray was obtained. There are 2 views. On my interpretation, lung glass are clear. There is normal cardiac silhouette. Bony thorax is normal. There is no acute process noted. Radiologist also interpreted the x-ray and agrees. Patient was advised of the findings. Patient was advised that this is most likely a viral illness. Patient was instructed to continue her home oxygen and aerosols. Patient was instructed to follow-up with her primary care physician in 5 to 7 days. Patient understood and was agreeable with plan. All questions were answered. Lab Data Attestation: I reviewed the patient's lab results. Labs: Laboratory Results - last 24 hr 02/18/22 02/18/22 15:29 15:29 WBC 10.6 RBC 6.38 H Hgb 15.0 Hct 52.2 H MCV 81.8 MCH 23.5 L MCHC 28.7 L RDW Std Deviation 69.0 H RDW Coeff of Radha 23.9 H Plt Count 199 Immature Gran % (Auto) 0.400 Neut % (Auto) 67.1 Lymph % (Auto) 23.3 [place] % (Auto) 6.3 Eos % (Auto) 2.3 Baso % (Auto) 0.6 Absolute Neuts (auto) 7.2 Absolute Lymphs (auto) 2.48 Nucleated RBC % 0 Differential Comment SCANNED Sodium 140 Potassium 4.0 Chloride 105 Carbon Dioxide 30.0 Anion Gap 5 BUN 10 Creatinine 0.79 Estim Creat Clear Calc 71.26 Est GFR (MDRD) Af Amer 99 Est GFR (MDRD) Non-Af 82 BUN/Creatinine Ratio 12.7 Glucose 119 H Calcium 9.2 Total Bilirubin 0.80 AST 21 ALT 34 Alkaline Phosphatase 71 Total Protein 7.7 Albumin 3.3 Globulin 4.4 H Albumin/Globulin Ratio 0.8 L ABG Data ABG results: ABG 02/18/22 15:29 VBG Carboxyhemoglobin 13.6 H Radiography Chest X-Ray - ED: 2 View, Read by ED Physician, Read by Radiologist and No Acute Disease Diagnostic Testing: Clinical Impression(s) from Imaging Studies Chest X-Ray 02/18/22 15:40 IMPRESSION: No acute cardiopulmonary disease. Electronically Signed: Yudith Yarbrough MD at 17:02 EST Reading Location ID and State: [id number] / Tel , Service support , Discharge Plan Triage Chief Complaint: General Illness ED Provider: Han Engel Dx/Rx/DC Orders Clinical Impression: Dyspnea, Tobacco abuse, Morbid (severe) obesity due to excess calories Instructions: ED Dyspnea Prescriptions: No Action metformin [Glucophage] 1,000 mg tablet 1,000 mg PO BID bumetanide 2 mg tablet 2 mg PO DAILY PRN (Reason: edema) Qty: 30 0RF levothyroxine 200 mcg tablet 200 mcg PO DAILY potassium chloride 20 mEq tablet,ER particles/crystals 20 meq PO DAILY cholecalciferol (vitamin D3) 1,000 UNIT tablet 7,000 unit PO DAILY Primary Care Provider: Guero Castillo Referrals: Guero Castillo MD [Primary Care Provider] - 5-7 Days Disposition Disposition: Home, Self Care
[2022-02-18 14:49] VITALS: BP 136/75; O2SAT 94
[2022-02-18 15:32] VITALS: O2SAT 93
--- NOTE | 2022-02-18 15:40 | RAD_ITS ---
INDICATION: Dyspnea EXAMINATION/TECHNIQUE: X-RAY - XR Chest 2 Views COMPARISON: 02/25/2021. FINDINGS: LINES/DEVICES: None. LUNGS: No consolidation, edema or effusion. No pneumothorax. MEDIASTINUM AND CARDIOVASCULAR STRUCTURES: Cardiac silhouette not enlarged. Central airways and mediastinal contour are unremarkable. BONES AND SOFT TISSUES: Moderate thoracic dextroscoliosis. RAD/Chest PA and Lateral IMPRESSION: No acute cardiopulmonary disease. Electronically Signed: Yudith Yarbrough MD at 17:02 EST Reading Location ID and State: [id number] / Tel , Service support ,
[2022-02-18 15:41] LABS: Absolute Lymphocyte Count 2.48 X10^3/uL (0.83-4.51); Absolute Neutrophil Count 7.2 X10^3/uL (2.0-7.7); Basophil# 0.06 X10^3/uL; Basophil% 0.6 % (0-1); Eosinophil# 0.24 X10^3/uL; Eosinophils% 2.3 % (0-5); Hematocrit 52.2 % (37-47); Lymphocyte # 2.48 X10^3/ul (0.83-4.51); Lymphocyte % 23.3 % (19-41); Mean Corp Hgb Conc 28.7 g/dL (32-36); Mean Corpuscular Hgb 23.5 pg (27.0-32.0); Mean Corpuscular Volume 81.8 fL (81-99); Monocyte# 0.67 X10^3/uL; Monocyte% 6.3 % (0-10); NRBC Flagged by Analyzer 0 % (0-5); Neutrophil # 7.15 X10^3/uL (2.7-7.7); Neutrophil % 67.1 % (47-70); POSITIVE MORPHOLOGY YES; Platelet Count 199 K/mm3 (150-450); RBC Distribution Width CV 23.9 % (11.6-14.6); Red Blood Count 6.38 M/mm3 (4.2-5.4); White Blood Count 10.6 K/mm3 (4.4-11.0)
[2022-02-18 15:47] LABS: Differential Indicated SCAN CRITERIA MET
[2022-02-18 16:10] LABS: ALB/GLOB Ratio 0.8 RATIO (0.9-2.4); AST(SGOT) 21 U/L (15-37); Alanine Aminotransfer ALT/SGPT 34 U/L (13-56); Albumin, Serum 3.3 g/dL (3.2-5.0); Alkaline Phosphatase 71 U/L (45-117); Anion Gap 5 (5-15); BUN 10 mg/dL (7-18); BUN/Creat Ratio 12.7 RATIO (10-20); Calcium,Total 9.2 mg/dL (8.5-10.1); Chloride 105 mmol/L (98-107); Creatinine, Serum 0.79 mg/dL (0.55-1.02); EST Glomerular Filtration Rate 82 mL/min (>60); Est Glom Filt Rate - Afr Amer 99 mL/min (>60); Estimated Creatinine Clearance 71.26 ml/min; Globulin 4.4 g/dL (2.2-4.2); Glucose 119 mg/dL (74-106); Protein, Total 7.7 g/dL (6.4-8.2); Sodium Level 140 mmol/L (136-145)
[2022-02-18 16:11] LABS: Carboxyhemoglobin Frac (CO) 13.6 % (0.0-1.5)
[2022-02-18 16:24] LABS: Differential Comment SCANNED
[2022-02-18 16:43] VITALS: PULSE 74; O2SAT 92
[2022-02-18 17:09] VITALS: PULSE 73; O2SAT 93
== END 2022-02-18 17:20 | disposition home or self-care (01) ==
PROVIDERS: Emergency Provider Emergency Medicine; PCP Family Medicine; Visit Provider Emergency Medicine
DX: R06.00 Dyspnea, unspecified (principal); E66.01 Morbid (severe) obesity due to excess calories; F17.210 Nicotine dependence, cigarettes, uncomplicated; G47.30 Sleep apnea, unspecified; Z99.81 Dependence on supplemental oxygen
CPT/HCPCS: 71046; 80053; 82375; 85025; 87428; 99283

== ENCOUNTER 2022-03-15 16:16 | Emergency (ER) | payer MEDICAID, SELFPAY ==
[2022-03-15 16:17] VITALS: BP 153/94; PULSE 86; RESP 20; TEMP 36.4; O2SAT 97; BMI 60.3
--- NOTE | 2022-03-15 16:39 | EKG12_ITS ---
Test Reason : GENERAL Blood Pressure : / mmHG Vent. Rate : 083 BPM Atrial Rate : 083 BPM P-R Int : 172 ms QRS Dur : 080 ms QT Int : 344 ms P-R-T Axes : 024 -14 022 degrees QTc Int : 404 ms Normal sinus rhythm Normal ECG Confirmed by OPAL MADDOX, KATHARINE ([id number]), loan expeditor MCKENZIE BOCANEGRA ([id number]) on 03/16/2022 1:58:10 PM Referred By: Confirmed By:KATHARINE JOSEPH MD
--- NOTE | 2022-03-15 16:42 | EDS_ITS ---
HPI History of Present Illness Chief Complaint: Shortness of Breath Detail of Chief Complaint: I think my carbon monoxide level is up again. Informant: patient Onset/Context/Timing Onset: Days Context: gradual Timing: Continuous Current Severity: Mild Maximum Severity: Mild Worsened by: Nothing Relieved by: Nothing Associated Symptoms Chest Pain: Positive for None Narrative Narrative: Four 11-year-old female history of COPD on CPAP and home O2 2 to 3 L. Also history of seizures. States that she smokes and at times she gets elevated carbon monoxide levels. States that they come out and checked her house and is not an issue with her home. Says she feels lightheaded and nauseated. Her last carbon oxide level was a month or so ago it was 13.6. He has had some nausea without vomiting or diarrhea. No fever. No new cough. PE Risk Factors: Negative for Cancer, OCP + Smoking + > 35, Prior DVT or PE, Recent immobilization, Recent surgery or Recent travel Prior similar symptoms: Yes Recent Illness/Hospitalization: No PFSH PFSH Medical History Arthritis Asthma Back pain Blood disorder Breast lump in female Carbon monoxide poisoning Chronic cough Chronic obstructive asthma COPD (chronic obstructive pulmonary disease) CPAP (continuous positive airway pressure) dependence Fibromyalgia Hearing problem Heartburn Hidradenitis History of allergic urticaria History of chronic bronchitis History of echocardiogram History of edema History of pain when walking History of seizures History of stress test Hx of cardiac murmur Hypothyroidism Hypoxemia Leg cramps Low iron Lymph edema Migraine headache Obesity On home oxygen therapy Polycystic bilateral ovaries Polycystic ovaries Polycythemia Pulmonary hypertension Restless legs Seasonal allergies Shortness of breath on exertion Sleep apnea Smoker Tobacco abuse Vision problems Vitamin deficiency Wears glasses Home Medications metformin 1,000 mg tablet (Glucophage) 1,000 mg PO BID 10/07/18 [History Last Taken Unknown] bumetanide 2 mg tablet 2 mg PO DAILY PRN edema #30 tabs 06/13/19 [Rx Last Taken Unknown] cholecalciferol (vitamin D3) 25 mcg (1,000 unit) tablet 7,000 unit PO DAILY 04/10/20 [History Last Taken Unknown] potassium chloride 20 mEq tablet,extended release(part/cryst) 20 meq PO DAILY 10/29/21 [History Last Taken Unknown] levothyroxine 200 mcg tablet 200 mcg PO DAILY 01/22/22 [History Last Taken Unknown] Nebulizer machine #1 ea 02/20/22 [Rx Last Taken Unknown] albuterol sulfate 2.5 mg/3 mL (0.083 %) solution for nebulization 2.5 mg (3 mL) inhalation Q4H PRN Sob &/Or Wheezing #180 mL 02/20/22 [Rx Last Taken Unknown] ipratropium 0.5 mg-albuterol 3 mg (2.5 mg base)/3 mL nebulization soln 3 ml inhalation Q4H PRN PRN SOB &/OR WHEEZING #180 mL 02/20/22 [Rx Last Taken Unknown] Allergy/AdvReac Type Severity Reaction Status Date / Time bee venom protein (honey bee) Allergy Severe Swelling Verified 03/15/22 16:20 codeine Allergy Severe Anaphylaxis Verified 03/15/22 16:20 levothyroxine sodium Allergy Severe Hives Verified 03/15/22 16:20 medroxyprogesterone acetate Allergy Severe Hives Verified 03/15/22 16:20 [From Provera] Penicillins Allergy Severe Hives Verified 03/15/22 16:20 spironolactone Allergy Severe Hives Verified 03/15/22 16:20 fluticasone [From Flonase] Allergy Intermediate ALLERGY Verified 03/15/22 16:20 Latex, Natural Rubber Allergy Intermediate ALLERGY Verified 03/15/22 16:20 sitagliptin [From Januvia] Allergy Intermediate ALLERGY Verified 03/15/22 16:20 metformin Allergy Mild Hives Verified 03/15/22 16:20 sitagliptin phosphate AdvReac Severe Shortness Verified 03/15/22 16:20 [From Januvia] of breath adhesive tape AdvReac Intermediate SKIN BREAK Verified 03/15/22 16:20 DOWN Family History Mother Hypertension CVA (cerebral vascular accident) Cancer Grandfather Cancer lung Heart disease Grandmother Hypertension Cancer Father CVA (cerebral vascular accident) Brother Diabetes Other Alcoholism /alcohol abuse Arthritis Epilepsy Lung cancer Seizures Uterine cancer Surgical History history diagnostic laparoscopy History of nasal surgery History of tonsillectomy Social History Smoking Status: Current every day smoker tobacco type: cigarettes counseling given: provider counseling and counseling >10 minutes alcohol intake: never substance use type: does not use caffeine: Yes Type: tea Number of servings: 2 additional social history: DOES NOT USE ASPIRIN DOES USE IBUPROFEN ROS ROS ED ROS Narrative Mild shortness of breath. Nausea. Review of Systems ROS Unobtainable: Denies due to encephalopathy Constitutional Constitutional ED: Denies chills or fever(s) Eyes Eyes: Denies blurry vision ENT ENT ED: Denies ear pain Cardiovascular Cardiovascular: Denies chest pain or palpitations Respiratory/Chest Respiratory/Chest: Reports dyspnea; Denies cough Gastrointestinal Gastrointestinal: Reports nausea; Denies abdominal pain, constipation, diarrhea, melena or vomiting Genitourinary Genitourinary ED: Denies dysuria or hematuria Musculoskeletal Musculoskeletal: Denies arthralgias Integumentary Denies abscess Neurologic Neurologic: Denies headache(s) Psychiatric Psychiatric: Denies anxiety Endocrine Endocrinology: Denies cold intolerance Hematologic/Lymphatic Hematologic/Lymphatic: Denies easy bleeding or easy bruising Allergic/Immunologic Allergic/Immunologic ED: Denies mouth swelling or tongue swelling EXAM Physical Exam Narrative Exam Narrative: 51-year-old female vital signs are stable afebrile. Pulse ox 97% on 3 L no hypoxia. This is her normal home O2. She does not look septic or toxic. She is in no distress. She is somewhat unkept. H EENT exam unremarkable. Lungs clear to auscultation. Heart regular rhythm rate about 85 no murmur. Chest wall nontender. Abdomen soft nontender. She is obese. Moving all 4 extremities. She has chronic trace edema both lower extremities. Calves are nontender. Neurologically she is awake and alert with no focal motor deficits. Const Vital Signs: 03/15/22 16:17 03/15/22 16:57 03/15/22 16:57 Temperature 97.6 F L 97.6 F L Temperature Source Temporal Temporal Pulse Rate 86 86 82 Respiratory Rate 20 H 22 H 20 H Respiratory Effort Respiratory Depth Respiratory Pattern Blood Pressure 153/94 H 128/96 H 128/96 H Blood Pressure Mean 113 106 106 Pulse Ox 97 92 92 Oxygen Delivery Method Nasal Cannula Room Air Room Air Oxygen Flow Rate (L/min) 3 03/15/22 16:57 03/15/22 16:57 Temperature Temperature Source Pulse Rate Respiratory Rate Respiratory Effort Normal Non-Labored Respiratory Depth Normal Respiratory Pattern Normal Blood Pressure Blood Pressure Mean Pulse Ox 92 Oxygen Delivery Method Room Air Room Air Oxygen Flow Rate (L/min) Positive well nourished, well developed and obese; Negative for cachectic, contractures or unkempt General Appearance ED: well developed and NAD; Negative for unkempt, cachectic, contractures or pallor Nutritional Appearance: obese; Negative for cachectic HEENT Reports moist mucous membranes; Denies dry mucous membranes atraumatic; Negative for trauma or tenderness Mouth ED: No dry mucous membranes Mouth: No dry mucous membranes Eyes PERRL and EOMs intact bilaterally General Eye ED: Negative for pale conjunctiva or scleral icterus Neck no lymphadenopathy, supple, no meningeal signs and no JVD General: Negative for tenderness Lymph Lymphatic: Negative for other Chest Wall Chest: Negative for other Resp normal respiratory effort and clear to auscultation bilaterally Effort and Inspection: Negative for pain with movement Auscultation: Negative for rales, rhonchi or wheezes Cardio regular rate, regular rhythm, S1 normal heart sound, S2 normal heart sound and no murmurs Rate: Negative for bradycardia or tachycardic Rhythm: Negative for abnormal rhythm GI non-tender, non-distended and no masses Inspection: Negative for other Auscultation: normoactive bowel sounds Palpation: soft; Negative for tender or guarding Back/Spine no CVA tenderness and normal to inspection General Back: Negative for CVA tenderness or tenderness Extremity normal to inspection Extremity Narrative: Chronic lower extremity trace edema. And venous stasis skin changes. General Extremety ED: Yes edema; Negative for tenderness General Extremity: edema Neuro oriented x3 and CN's II-XII intact bilaterally Sensorium / Orientation: alert, oriented to person, oriented to place and oriented to time Speech: speech normal Motor Exam: strength 5/5 throughout Psych mental status grossly normal Appearance: Negative for unkempt Attitude: No agitated Mood & Affect: Negative for depressed, anxious or tearful Thought Process: normal thought process Skin no wounds Skin Narrative: Chronic venous stasis changes of the lower extremities. General Skin Exam: Negative for jaundice or pallor Lesions: no lesions Rashes: no rashes MDM MDM MDM Narrative Medical decision making narrative: 51-year-old female smoker is concerned her carbon monoxide level was elevated. They believe this is from her smoking history. She is at her house checked and it was always unremarkable. He has had the same issue in the past. She complains of mild shortness of breath. No chest pain or fever. He has had na usea and a mild headache. She will undergo work-up for shortness of breath. Exam is benign. We will get a CO level and arterial blood gas due to her COPD history to ensure she is not retaining CO2 out of her baseline. I do not think this is cardiac. She has no signs of pneumonia clinically on exam. I doubt CHF. Anemia be in the differential that can be ruled in or out with the labs. Repeat exam at 6:19 PM patient doing well. No distress. She and I went over all of her lab test. They are basically her baseline. She will be discharged to home. Follow-up with your doctor. Lab Data Attestation: I reviewed the patient's lab results. Lab results narrative: CBC shows a white count 10.8. H&H 15.4 and 51. Platelets 189. Electrolytes unremarkable. Gap of 4 normal BUN and creatinine. Glucose 127. Troponin of 4. Chest x-ray shows chronic changes no acute process. Unchanged from prior chest x-ray. Patient's blood gas shows a pH 7.38 PCO2 of 49 and a PO2 of 55. Carboxyhemoglobin is 8.4 she often runs between 13 and 23. She does have a smoking history. Labs: Laboratory Results - last 24 hr 03/15/22 03/15/22 16:50 16:50 WBC 10.8 RBC 6.23 H Hgb 15.4 H Hct 51.5 H MCV 82.7 MCH 24.7 L MCHC 29.9 L RDW Std Deviation 63.2 H RDW Coeff of Radha 21.8 H Plt Count 189 MPV TNP Immature Gran % (Auto) 0.400 Neut % (Auto) 71.1 H Lymph % (Auto) 19.7 Beckham % (Auto) 6.0 Eos % (Auto) 2.2 Baso % (Auto) 0.6 Absolute Neuts (auto) 7.7 Absolute Lymphs (auto) 2.12 Nucleated RBC % 0 Differential Comment Sodium 139 Potassium 4.3 Chloride 106 Carbon Dioxide 29.0 Anion Gap 4 L BUN 14 Creatinine 0.65 Estim Creat Clear Calc 82.80 Est GFR (MDRD) Af Amer 125 Est GFR (MDRD) Non-Af 103 BUN/Creatinine Ratio 21.6 H Glucose 127 H Calcium 9.4 Troponin I High Sens 4 ABG Data ABG results: ABG 03/15/22 03/15/22 03/15/22 16:50 17:20 17:42 Specimen Type ART Sample Site L Radial pH 7.38 Bicarbonate Actual 29.2 H Total CO2 31 Base Excess 4 H O2 Saturation 88 L ABG pCO2 49.2 H ABG pO2 56 L VBG Carboxyhemoglobin Cancelled 8.4 H O2 Delivery Device Room Air Radiography Chest X-Ray - ED: 1 View, Read by ED Physician, Read by Radiologist, Heart, Lungs, Mediastinum, Bony Structures, No Acute Disease and Chronic Changes Diagnostic Testing: Clinical Impression(s) from Imaging Studies Chest X-Ray 03/15/22 17:00 IMPRESSION: Minor interstitial thickening in the right lower lobe likely chronic. No acute cardiopulmonary pathology Electronically Signed: Roverto Watts MD at 17:51 EST Reading Location ID and State: [address] [place] [address] , Service support , Chest x-ray, portable, single view interpreted both by myself and the radiologist shows chronic changes no acute process. Unchanged from prior. Rhythm Strip Rhythm Strip: Sinus Rhythm Rate: 83 Ectopy: None EKG Initial EKG: Attestation: I personally reviewed and interpreted this EKG as follows: Interpretation: Sinus Rhythm and No Acute Injury Pattern Comments: Normal sinus rhythm rate of 83 no acute signs of OR, ischemia or dysrhythmia. Unchanged from prior EKG from February 2021. Discharge Plan Triage Chief Complaint: Shortness of Breath ED Provider: David Lopez Dx/Rx/DC Orders Clinical Impression: Acute dyspnea, Lymph edema, History of COPD, History of carbon monoxide poisoning Instructions: ED Dyspnea Prescriptions: No Action metformin [Glucophage] 1,000 mg tablet 1,000 mg PO BID bumetanide 2 mg tablet 2 mg PO DAILY PRN (Reason: edema) Qty: 30 0RF levothyroxine 200 mcg tablet 200 mcg PO DAILY potassium chloride 20 mEq tablet,ER particles/crystals 20 meq PO DAILY cholecalciferol (vitamin D3) 1,000 UNIT tablet 7,000 unit PO DAILY ipratropium-albuterol 0.5 mg-3 mg(2.5 mg base)/3 mL solution for nebulization 3 ml inhalation Q4H PRN PRN (Reason: SOB &/OR WHEEZING) Qty: 180 6RF albuterol sulfate 2.5 mg /3 mL (0.083 %) solution for nebulization 2.5 mg inhalation Q4H PRN (Reason: Sob &/Or Wheezing) Qty: 180 3RF (DME) Nebulizer machine See Rx Instructions .ROUTE .MEDSUPPLY Qty: 1 0RF Rx Instructions: As directed Primary Care Provider: Guero Castillo Referrals: Guero Castillo MD [Primary Care Provider] - 3-5 Days if not improving Activity Restrictions/Additional Instructions: Your labs, blood gas, carbon monoxide level, chest x-ray and EKG are unremarkable. Follow-up with your doctor. Return if worse. Disposition Disposition: Home, Self Care
[2022-03-15 16:57] VITALS: BP 128/96; PULSE 82; PULSE 86; RESP 20; RESP 22; TEMP 36.4; O2SAT 92
[2022-03-15 16:59] LABS: Absolute Lymphocyte Count 2.12 X10^3/uL (0.83-4.51); Absolute Neutrophil Count 7.7 X10^3/uL (2.0-7.7); Basophil# 0.06 X10^3/uL; Basophil% 0.6 % (0-1); Eosinophil# 0.24 X10^3/uL; Eosinophils% 2.2 % (0-5); Hematocrit 51.5 % (37-47); Hemoglobin 15.4 g/dL (12.0-15.0); Lymphocyte # 2.12 X10^3/ul (0.83-4.51); Lymphocyte % 19.7 % (19-41); Mean Corp Hgb Conc 29.9 g/dL (32-36); Mean Corpuscular Hgb 24.7 pg (27.0-32.0); Mean Corpuscular Volume 82.7 fL (81-99); Monocyte# 0.65 X10^3/uL; NRBC Flagged by Analyzer 0 % (0-5); Neutrophil # 7.66 X10^3/uL (2.7-7.7); Neutrophil % 71.1 % (47-70); POSITIVE MORPHOLOGY YES; Platelet Count 189 K/mm3 (150-450); RBC Distribution Width CV 21.8 % (11.6-14.6); RBC Distribution Width SD 63.2 fl (35.1-43.9); Red Blood Count 6.23 M/mm3 (4.2-5.4); White Blood Count 10.8 K/mm3 (4.4-11.0)
--- NOTE | 2022-03-15 17:00 | RAD_ITS ---
INDICATION: chest pain EXAMINATION/TECHNIQUE: X-RAY - XR Chest 1 View COMPARISON: February 18, 2022 FINDINGS: LINES/DEVICES: None. LUNGS: Minor interstitial thickening in the right lower lobe likely chronic. No focal infiltration or pleural effusion.. No pneumothorax. MEDIASTINUM AND CARDIOVASCULAR STRUCTURES: Cardiac silhouette not enlarged. Central airways and mediastinal contour are unremarkable. BONES AND SOFT TISSUES: Dorsal spine demonstrates scoliosis and degenerative changes. RAD/Chest 1 View (Portable) IMPRESSION: Minor interstitial thickening in the right lower lobe likely chronic. No acute cardiopulmonary pathology Electronically Signed: Roverot Watts MD at 17:51 EST ,
[2022-03-15 17:02] LABS: Differential Indicated SCAN CRITERIA MET
[2022-03-15 17:22] LABS: Anion Gap 4 (5-15); BUN 14 mg/dL (7-18); BUN/Creat Ratio 21.6 RATIO (10-20); Calcium,Total 9.4 mg/dL (8.5-10.1); Chloride 106 mmol/L (98-107); Creatinine, Serum 0.65 mg/dL (0.55-1.02); EST Glomerular Filtration Rate 103 mL/min (>60); Est Glom Filt Rate - Afr Amer 125 mL/min (>60); Glucose 127 mg/dL (74-106); Potassium 4.3 mmol/L (3.5-5.1); Sodium Level 139 mmol/L (136-145); Troponin-I HS 4 pg/mL (3.0-54.0)
[2022-03-15 17:25] LABS: Base Excess 4 mmol/L (-2 to +2); Bicarbonate 29.2 mmol/L (22-26); Blood Gas Specimen Type ART; O2 Delivery Device Room Air; PO2 56 mmHG (75-100); SITE L Radial; SO2 88 % (95-99); Total Carbon Dioxide 31 mmol/L; pCO2 49.2 mmHg (35-45); pH 7.38 (7.35-7.45)
[2022-03-15 18:00] LABS: Carboxyhemoglobin Frac (CO) 8.4 % (0.0-1.5)
[2022-03-15 18:37] VITALS: BP 133/77; PULSE 77; RESP 20; O2SAT 93
== END 2022-03-15 18:39 | disposition home or self-care (01) ==
PROVIDERS: Emergency Provider Emergency Medicine; PCP Family Medicine; Visit Provider Emergency Medicine
DX: R06.02 Shortness of breath (principal); J44.9 Chronic obstructive pulmonary disease, unspecified; R60.9 Edema, unspecified; R11.0 Nausea; F17.210 Nicotine dependence, cigarettes, uncomplicated
CPT/HCPCS: 36600; 71045; 80048; 82375; 82803; 84484; 85025; 93005; 99283; A4216

== ENCOUNTER → 2022-04-29 | Outpatient (CLI) | payer MEDICAID, SELFPAY ==
[2022-04-29 15:44] LABS: Anion Gap 8 (5-15); BUN 14 mg/dL (7-18); BUN/Creat Ratio 17.6 RATIO (10-20); Calcium,Total 9.8 mg/dL (8.5-10.1); Chloride 99 mmol/L (98-107); EST Glomerular Filtration Rate 81 mL/min (>60); Est Glom Filt Rate - Afr Amer 98 mL/min (>60); Glucose 132 mg/dL (74-106); Potassium 3.5 mmol/L (3.5-5.1); Sodium Level 140 mmol/L (136-145)
== END | disposition home or self-care (01) ==
PROVIDERS: PCP Family Medicine; Referring Provider Physician Assistant Medical; Visit Provider Physician Assistant Medical
DX: R00.0 Tachycardia, unspecified (principal); R06.09 Other forms of dyspnea
CPT/HCPCS: 36415; 80048

== ENCOUNTER → 2022-05-20 | Outpatient (CLI) | payer MEDICAID, SELFPAY ==
[2022-05-20 16:06] LABS: Anion Gap 8 (5-15); BUN 12 mg/dL (7-18); BUN/Creat Ratio 17.8 RATIO (10-20); Calcium,Total 9.5 mg/dL (8.5-10.1); Chloride 102 mmol/L (98-107); Creatinine, Serum 0.68 mg/dL (0.55-1.02); EST Glomerular Filtration Rate 98 mL/min (>60); Est Glom Filt Rate - Afr Amer 119 mL/min (>60); Glucose 81 mg/dL (74-106); Potassium 3.8 mmol/L (3.5-5.1); Sodium Level 138 mmol/L (136-145)
== END | disposition home or self-care (01) ==
LOC: MTLAB 13:51
PROVIDERS: PCP Family Medicine; Referring Provider Physician Assistant Medical; Visit Provider Physician Assistant Medical
DX: E87.6 Hypokalemia (principal)
CPT/HCPCS: 36415; 80048

== ENCOUNTER → 2022-06-26 | Outpatient (CLI) | payer MEDICAID, SELFPAY ==
--- NOTE | 2022-06-26 14:50 | CT_ITS ---
STUDY: LOW DOSE CT LUNG CANCER SCREENING REASON FOR EXAM: Female, 52 years old. Current smoker and gt; 20 pack years RADIATION DOSAGE (If Supplied By Facility): CTDIvol = ( 4.02 ) mGy, DLP = ( 124.86 ) mGycm TECHNIQUE: No contrast was administered. Low dose technique was utilized (average mAS-38 and kVp 120). 1.25 mm axial source images with a slice interval of 1.25-mm were reconstructed in lung windows. 2.5 mm axial source images with a slice interval of 2.5-mm were reconstructed in lung windows. 5.0 mm axial source images with a slice interval of 5.0-mm were reconstructed in soft tissue windows. COMPARISON: None NODULES: Nodule #: 1 Density: Solid Lung location: Lingula: 1.3 cm from pleura Location in series: Series Number: 2 Image: 73 Size - D1 x D2 mm: 3 x 4 x 5 mm: 4 mm average diameter Margin: Smooth Shape: Rectangular Calcification: None Fat: None Temporal comparison: None Total lung nodules (excluding granulomas): 1 Emphysema: None Endobronchial lesion: None Aorta: 3.6 cm ectasia ascending aorta, 2.4 cm descending aorta. CORONARY ARTERIES: Coronary artery calcification none Heart: Normal size. Pulmonary artery: Normal size. Mediastinal nodes: None Other chest and abdominal findings: None CT/Low Dose CT Lung Screening IMPRESSION: Lung-RADS category 2 - Continue annual screening with LDCT in 12 months. IMPORTANT NOTES FOR USE: ACR Lung-RADS Version 1.1 Assessment Categories Release Date: 2018 Category: Coded 0-4 bases on nodule(s) with highest degree of suspicion. Negative screen is defined as categories 1 and 2; a positive screen is defined as categories 3 and 4. Category 3 and 4A nodules that are unchanged on interval CT should be coded as category 2, and individuals returned to screening in 12 months. Category 4X: Category 3 or 4 nodules with additional imaging findings that increase the suspicion of lung cancer, such as spiculation, GGN that doubles in size in 1 year, enlarged lymph notes, etc. Category Modifiers: S (significant finding unrelated to lung cancer) Electronically Signed: Kevin Sultana MD at 22:29 EDT ,
== END | disposition home or self-care (01) ==
LOC: CT 14:50
PROVIDERS: PCP Family Medicine; Referring Provider Nurse Practitioner Acute Care; Visit Provider Nurse Practitioner Acute Care
DX: F17.210 Nicotine dependence, cigarettes, uncomplicated (principal)
CPT/HCPCS: 71271

== ENCOUNTER → 2022-07-15 | Outpatient (CLI) | payer MEDICAID, SELFPAY ==
--- NOTE | 2022-07-19 11:11 | STRESSREP_ITS ---
Stress Test Report Date: 07/15/2022 Procedure: Pharmacologic stress nuclear imaging study Indications: Shortness of breath, palpitations Consent: Per the patient Procedure: The patient underwent pharmacologic (Regadenoson) evaluation with a peak heart rate of 89 beats per minute (52%predicted maximal heart rate) and a peak blood pressure of 132/62 mmHg. The baseline ECG demonstrated normal sinus rhythm. EKG during lexiscan infusion revealed no significant ischemic changes. EKG post infusion revealed no significant ischemic changes [There were no cardiac dysrhythmias pretest, during pharmacologic infusion, or recovery]. [There was no complaint of chest discomfort during pharmacologic infusion or recovery]. The examination was discontinued secondary to completion of protocol. Impression: 1. Lexiscan stress test test is negative for Lexiscan infusion induced EKG changes of ischemia. 2. Lexiscan stress test test is negative for Lexiscan infusion induced chest pain. 3. Results of the nuclear portion of the test is as below Myocardial perfusion imaging study: Technique: The patient was injected with 14.9 millicuries of technetium 99m Cardiolite and subsequently rest SPECT Cardiolite nuclear imaging was obtained in the horizontal long, vertical long, and short axis views. The patient underwent pharmacologic [Regadenoson 0.4mg] evaluation. Please see above for details. The patient was injected with 44.7 millicuries of technetium 99m Cardiolite and subsequently stress SPECT Cardiolite nuclear imaging was obtained in the horizontal long, vertical long, and short axis views. A gated Cardiolite study at peak stress was obtained. Interpretation: Rest and stress SPECT Cardiolite nuclear imaging status post realignment, normalization, and attenuation correction demonstrate normal myocardial radioisotope uptake at rest. Mild decrease in the radioisotope uptake in the distal inferior wall on the stress images. Gated images reveal no significant regional wall motion abnormalities. The reported LVEF is 68%. Mild ischemia involving the distal inferior wall cannot be excluded Impression: 1. Mild distal inferior ischemia cannot be excluded. 2. Estimated ejection fraction is 68%. This note was generated with [employer] software. It may contain incorrect words, spelling, and punctuation that were not noted in checking the note before signing.
== END | disposition home or self-care (01) ==
LOC: CVS 07:04
PROVIDERS: PCP Family Medicine; Referring Provider Internal Medicine Cardiovascular Disease; Visit Provider Internal Medicine Cardiovascular Disease
DX: R06.09 Other forms of dyspnea (principal); R00.2 Palpitations; I49.9 Cardiac arrhythmia, unspecified; R07.89 Other chest pain
CPT/HCPCS: 78452; 93017; A9500; A4216; J2785

== ENCOUNTER → 2022-10-17 | Outpatient (CLI) | payer MEDICAID, SELFPAY ==
[2022-10-17 12:30] LABS: Anion Gap 6 (5-15); BUN 10 mg/dL (7-18); BUN/Creat Ratio 15.3 RATIO (10-20); Calcium,Total 8.9 mg/dL (8.5-10.1); Chloride 103 mmol/L (98-107); Creatinine, Serum 0.66 mg/dL (0.55-1.02); EST Glomerular Filtration Rate 102 mL/min (>60); Est Glom Filt Rate - Afr Amer 123 mL/min (>60); Glucose 132 mg/dL (74-106); Potassium 4.4 mmol/L (3.5-5.1); Sodium Level 138 mmol/L (136-145)
== END | disposition home or self-care (01) ==
LOC: LAB 11:40
PROVIDERS: PCP Family Medicine; Referring Provider Nurse Practitioner Family; Visit Provider Nurse Practitioner Family
DX: E87.6 Hypokalemia (principal); R34 Anuria and oliguria; Z51.81 Encounter for therapeutic drug level monitoring; Z79.899 Other long term (current) drug therapy
CPT/HCPCS: 36415; 80048

== ENCOUNTER → 2022-11-04 | Outpatient (CLI) | payer MEDICAID, SELFPAY ==
--- NOTE | 2022-11-05 10:39 | PFT ---
INTRODUCTION: The patient is a 52-year-old female who presents for pulmonary function studies secondary to a diagnosis of dyspnea. Respiratory therapy reported good patient effort. Bronchodilators were used during testing. INTERPRETATION: Forced expiration spirometry demonstrates no evidence of a large airways obstructive ventilatory defect. There was no significant response to aerosolized bronchodilators. Spirograms are of good quality and plateau normally. Body plethysmography was performed and revealed a decreased TLC to 3.59 L, 78% of predicted, indicative of a mild restrictive ventilatory impairment. Diffusing capacity by single breath CO is reduced to 64% of predicted. IMPRESSION: Mild restrictive ventilatory impairment with symmetric reduction in diffusing capacity.
== END | disposition home or self-care (01) ==
LOC: PSN 10:44
PROVIDERS: PCP Family Medicine; Referring Provider Nurse Practitioner Acute Care; Visit Provider Nurse Practitioner Acute Care
DX: R06.09 Other forms of dyspnea (principal)
CPT/HCPCS: 94060; 94726; 94729

== ENCOUNTER → 2022-12-23 | Outpatient (CLI) | payer MEDICAID, SELFPAY ==
[2022-12-23 15:22] LABS: Absolute Lymphocyte Count 2.19 X10^3/uL (0.83-4.51); Absolute Neutrophil Count 9.3 X10^3/uL (2.0-7.7); Basophil# 0.05 X10^3/uL; Basophil% 0.4 % (0-1); Eosinophil# 0.06 X10^3/uL; Eosinophils% 0.5 % (0-5); Hematocrit 46.5 % (37-47); Hemoglobin 13.3 g/dL (12.0-15.0); Lymphocyte # 2.19 X10^3/ul (0.83-4.51); Lymphocyte % 17.7 % (19-41); Mean Corp Hgb Conc 28.6 g/dL (32-36); Mean Corpuscular Hgb 25.2 pg (27.0-32.0); Mean Corpuscular Volume 88.1 fL (81-99); Mean Platelet Vol. 13.1 fl (6.2-12.0); Monocyte# 0.65 X10^3/uL; Monocyte% 5.3 % (0-10); NRBC Flagged by Analyzer 0.2 % (0-5); Neutrophil # 9.32 X10^3/uL (2.7-7.7); Neutrophil % 75.3 % (47-70); POSITIVE COUNT YES; RBC Distribution Width SD 54.1 fl (35.1-43.9); Red Blood Count 5.28 M/mm3 (4.2-5.4); White Blood Count 12.4 K/mm3 (4.4-11.0)
[2022-12-23 15:34] LABS: Differential Indicated SCAN CRITERIA MET
[2022-12-23 16:02] LABS: Differential Comment SCANNED
[2022-12-23 16:03] LABS: Platelet Estimate ADEQUATE (ADEQ)
[2022-12-23 16:05] LABS: ALB/GLOB Ratio 0.6 RATIO (0.9-2.4); AST(SGOT) 49 U/L (15-37); Alanine Aminotransfer ALT/SGPT 78 U/L (13-56); Albumin, Serum 2.8 g/dL (3.2-5.0); Alkaline Phosphatase 83 U/L (45-117); Anion Gap 4 (5-15); BUN 11 mg/dL (7-18); BUN/Creat Ratio 16.6 RATIO (10-20); Calcium,Total 8.7 mg/dL (8.5-10.1); Chloride 107 mmol/L (98-107); Cholesterol 147 mg/dL (200); Creatinine, Serum 0.66 mg/dL (0.55-1.02); EST Glomerular Filtration Rate 100 mL/min (>60); Est Glom Filt Rate - Afr Amer 121 mL/min (>60); Globulin 4.8 g/dL (2.2-4.2); Glucose 206 mg/dL (74-106); High Density Lipoprotein 34 mg/dL; Potassium 4.9 mmol/L (3.5-5.1); Protein, Total 7.6 g/dL (6.4-8.2); Sodium Level 138 mmol/L (136-145); T4 Free Direct 1.21 ng/dL (0.76-1.46); Thyroid Stim Hormone (TSH) 1.18 uIU/mL (0.358-3.74); Triglycerides 104 mg/dL; Very Low Density Lipoprotein 21 mg/dL (5-40)
[2022-12-23 16:30] LABS: Vitamin D,25 Hydroxy 69.2 ng/mL
[2022-12-23 17:53] LABS: Hemoglobin A1c 6.4 % (3.8-5.6)
== END | disposition home or self-care (01) ==
LOC: BFHLAB 11:27
PROVIDERS: PCP Family Medicine; Visit Provider Family Medicine
DX: I10 Essential (primary) hypertension (principal); E55.9 Vitamin D deficiency, unspecified; E28.2 Polycystic ovarian syndrome; E03.9 Hypothyroidism, unspecified
CPT/HCPCS: 36415; 80053; 80061; 82306; 83036; 84439; 84443; 85025

== ENCOUNTER 2023-03-11 13:17 | Outpatient (CLI) | payer MEDICAID, SELFPAY ==
[2023-03-11 13:46] LABS: Base Excess 2 mmol/L (-2 to +2); Bicarbonate 27.3 mmol/L (22-26); Blood Gas Specimen Type ART; Mode Not entered; O2 Delivery Device Cannula; PO2 64 mmHG (75-100); SITE L Radial; SO2 91 % (95-99); Total Carbon Dioxide 29 mmol/L; pCO2 46.7 mmHg (35-45); pH 7.37 (7.35-7.45)
== END 2023-03-11 23:59 | disposition home or self-care (01) ==
LOC: PSN 13:18
PROVIDERS: PCP Family Medicine; Referring Provider Nurse Practitioner Acute Care; Visit Provider Nurse Practitioner Acute Care
DX: J96.11 Chronic respiratory failure with hypoxia (principal)
CPT/HCPCS: 36600; 82803

== ENCOUNTER 2023-05-28 13:04 | Emergency (ER) | payer MEDICAID, SELFPAY ==
[2023-05-28 13:04] VITALS: BP 177/95; PULSE 87; RESP 14; TEMP 36.2; O2SAT 97
[2023-05-28 13:14] VITALS: BMI 63.6
--- NOTE | 2023-05-28 13:52 | EDS_ITS ---
HPI <KARAN Velazquez - Last Filed: 05/28/23 16:01> History of Present Illness Chief Complaint: Abd Pain Narrative Narrative: Patient presenting today due to concerns for bleeding from her umbilical hernia that she has had since November. She reports that she did see her PCP for this back in November and was told to follow-up again in a year. She thinks that the bleeding has gotten slightly worse recently and called her PCP today to be seen in and the nurse encouraged her to come into the emergency department for evaluation. She reports that she has had occasional nausea and right-sided abdominal pain, however she is not having any abdominal pain at this time. She denies any fevers, chills, vomiting, and diarrhea. She reports that she had a bowel movement this morning that was normal for her. No previous abdominal surgeries. [facility] <KARAN Velazquez - Last Filed: 05/28/23 16:01> [facility] Medical History Arthritis Asthma Back pain Blood disorder Breast lump in female Carbon monoxide poisoning Chronic cough Chronic obstructive asthma COPD (chronic obstructive pulmonary disease) CPAP (continuous positive airway pressure) dependence Fibromyalgia Hearing problem Heartburn Hidradenitis History of allergic urticaria History of chronic bronchitis History of echocardiogram History of edema History of pain when walking History of seizures History of stress test Hx of cardiac murmur Hypothyroidism Hypoxemia Leg cramps Low iron Lymph edema Migraine headache Obesity On home oxygen therapy Polycystic bilateral ovaries Polycystic ovaries Polycythemia Pulmonary hypertension Restless legs Seasonal allergies Shortness of breath on exertion Sleep apnea Smoker Tobacco abuse Vision problems Vitamin deficiency Wears glasses Home Medications metformin 1,000 mg tablet (Glucophage) 1,000 mg PO BID 10/07/18 [History Last Taken Unknown] cholecalciferol (vitamin D3) 25 mcg (1,000 unit) tablet 7,000 unit PO DAILY 04/10/20 [History Last Taken Unknown] levothyroxine 200 mcg tablet 250 mcg PO DAILY 01/22/22 [History Last Taken Unkno wn] potassium chloride 10 mEq tablet,extended release(part/cryst) 20 meq (2 x 10 mEq) PO DAILY #180 tabs 07/27/22 [Rx Last Taken Unknown] doxycycline hyclate 100 mg capsule 100 mg PO BID #13 caps 05/28/23 [Rx Last Taken Unknown] ondansetron 4 mg disintegrating tablet 4 mg PO Q8H PRN PRN Nausea #10 tabs 05/28/23 [Rx Last Taken Unknown] Allergy/AdvReac Type Severity Reaction Status Date / Time bee venom protein (honey bee) Allergy Severe Swelling Verified 02/17/23 13:14 codeine Allergy Severe Anaphylaxis Verified 02/17/23 13:14 levothyroxine sodium Allergy Severe Hives Verified 02/17/23 13:14 medroxyprogesterone acetate Allergy Severe Hives Verified 02/17/23 13:14 [From Provera] Penicillins Allergy Severe Hives Verified 02/17/23 13:14 spironolactone Allergy Severe Hives Verified 02/17/23 13:14 fluticasone [From Flonase] Allergy Intermediate ALLERGY Verified 02/17/23 13:14 Latex, Natural Rubber Allergy Intermediate ALLERGY Verified 02/17/23 13:14 sitagliptin [From Januvia] Allergy Intermediate ALLERGY Verified 02/17/23 13:14 metformin Allergy Mild Hives Verified 02/17/23 13:14 sitagliptin phosphate AdvReac Severe Shortness Verified 02/17/23 13:14 [From Januvia] of breath adhesive tape AdvReac Intermediate SKIN BREAK Verified 02/17/23 13:14 DOWN Family History Mother Hypertension CVA (cerebral vascular accident) Cancer Grandfather Cancer lung Heart disease Grandmother Hypertension Cancer Father CVA (cerebral vascular accident) Brother Diabetes Other Alcoholism /alcohol abuse Arthritis Epilepsy Lung cancer Seizures Uterine cancer Surgical History history diagnostic laparoscopy History of nasal surgery History of tonsillectomy Social History household members: none Smoking Status: Current every day smoker tobacco type: cigarettes counseling given: provider counseling and counseling >10 minutes alcohol intake: never substance use type: does not use caffeine: Yes Type: tea Number of servings: 2 additional social history: DOES NOT USE ASPIRIN DOES USE IBUPROFEN ROS <KARAN Velazquez - Last Filed: 05/28/23 16:01> ROS ED Constitutional Constitutional ED: Denies chills or fever(s) Cardiovascular Cardiovascular: Denies chest pain Respiratory/Chest Respiratory/Chest: Denies cough or dyspnea Gastrointestinal Gastrointestinal: Denies abdominal pain, nausea or vomiting Genitourinary Genitourinary ED: Denies dysuria, hematuria or urinary urgency Musculoskeletal Musculoskeletal: Denies arthralgias or myalgias Integumentary Denies rash Neurologic Neurologic: Denies weakness EXAM <KARAN Velazquez - Last Filed: 05/28/23 16:01> Physical Exam Const Vital Signs: 05/28/23 13:04 05/28/23 14:15 05/28/23 14:25 Temperature 97.1 F L 97.1 F L 97.7 F L Temperature Source Temporal Pulse Rate 87 73 75 Respiratory Rate 14 18 16 Blood Pressure 177/95 H 120/77 163/80 H Blood Pressure Mean 122 91 107 Pulse Ox 97 97 97 Oxygen Delivery Method Room Air Positive well nourished, well developed and no apparent distress General Appearance ED: well developed HEENT Reports normocephalic and head/scalp atraumatic Mouth ED: Yes moist mucous membranes normal Eyes PERRL and EOMs intact bilaterally Neck full ROM and supple Chest Wall inspection of chest normal Resp normal respiratory effort and clear to auscultation bilaterally Cardio regular rate and regular rhythm GI soft to palpation, non-tender, non-distended and no masses GI Narrative: Nonstrangulated umbilical hernia, minimal surrounding erythema and bloody discharge noted around the hernia. Palpation: Negative for guarding Back/Spine normal ROM and normal to inspection Extremity normal to inspection and full ROM Neuro oriented x3, CN's II-XII intact bilaterally, moves all extremities, no focal motor deficits and no sensory deficits noted Sensorium / Orientation: awake and alert Psych mental status grossly normal and thought process normal <Dr. Melvin Fowler DO - Last Filed: 05/28/23 16:19> Physical Exam Const Vital Signs: 05/28/23 13:04 05/28/23 14:15 05/28/23 14:25 Temperature 97.1 F L 97.1 F L 97.7 F L Temperature Source Temporal Pulse Rate 87 73 75 Respiratory Rate 14 18 16 Blood Pressure 177/95 H 120/77 163/80 H Blood Pressure Mean 122 91 107 Pulse Ox 97 97 97 Oxygen Delivery Method Room Air MDM <KARAN Velazquez - Last Filed: 05/28/23 16:01> MDM MDM Narrative Medical decision making narrative: Patient presenting today with concerns due to bleeding from her umbilical hernia that she has had since November. She is well-appearing and in no acute d istress. Saw her PCP for this issue in November but the bleeding has progressively worsened since then. Her hernia is not strangulated, her abdomen is soft and nontender. There is minimal surrounding erythema around the umbilical hernia with slight bloody discharge. I do think she would benefit from antibiotics, I will give her a prescription for doxycycline and wound care instructions have been discussed such as keeping the area clean and applying bacitracin ointment. I did encourage that she follow-up with her PCP next week to make sure the area is improving. She will be discharged home in stable condition and is comfortable with plan. <Dr. Melvin Fowler, DO - Last Filed: 05/28/23 16:19> [facility] Narrative Medical decision making narrative: Patient presenting today with concerns due to bleeding from her umbilical hernia that she has had since November. She is well-appearing and in no acute distress. Saw her PCP for this issue in November but the bleeding has progressively worsened since then. Her hernia is not strangulated, her abdomen is soft and nontender. There is minimal surrounding erythema around the umbilical hernia with slight bloody discharge. I do think she would benefit from antibiotics, I will give her a prescription for doxycycline and wound care instructions have been discussed such as keeping the area clean and applying bacitracin ointment. I did encourage that she follow-up with her PCP next week to make sure the area is improving. She will be discharged home in stable condition and is comfortable with plan. This patient was seen with a PA/PLASTIC CNC MACHINE OPERATOR Individually assessed they patient including history and physical. I have reviewed everything on the chart that is available and agree with the documentation provided by the PA/PLASTIC CNC MACHINE OPERATOR including discussion about the assessment, treatment plan, discussion, and return precautions. Patient seen for bleeding and irritation to the umbilicus. There is a slight odor here although it does not appear to be strangulated or arthritis. Definitely reduces.-year-old there are some irritated patient in the area of the abrasions to head and likely a early cellulitic change. After the patient's allergies be felt most appropriate course of doxycycline. For wound care. She is to apply bacitracin as well. She should follow-up with her PCP to ensure resolution. Discharge Plan Triage Chief Complaint: Abd Pain ED Midlevel Provider: Kadie Kay ED Provider: Melvin Fowler Dx/Rx/DC Orders Clinical Impression: Cellulitis, Umbilical hernia Instructions: ED Hernia (Adult) Prescriptions: New doxycycline hyclate 100 mg capsule 100 mg PO BID Qty: 13 0RF ondansetron 4 mg tablet,disintegrating 4 mg PO Q8H PRN PRN (Reason: Nausea) Qty: 10 0RF No Action metformin [Glucophage] 1,000 mg tablet 1,000 mg PO BID levothyroxine 200 mcg tablet 250 mcg PO DAILY potassium chloride 10 mEq tablet,ER particles/crystals 20 meq PO DAILY Qty: 180 3RF Hold Instructions: Order Changed cholecalciferol (vitamin D3) 1,000 UNIT tablet 7,000 unit PO DAILY Primary Care Provider: Jevon Mccormack Referrals: Jevon Mccormack DO [Primary Care Provider] - 3-5 Days if not improving Activity Restrictions/Additional Instructions: Please follow-up with your PCP and return for any worsening of your symptoms. Disposition Disposition: Home, Self Care Discharge Date/Time: 05/28/23 14:26
[2023-05-28] MEDS: Doxycycline 100 MG CAPSULE PO (14:12)
[2023-05-28 14:15] VITALS: BP 120/77; PULSE 73; RESP 18; TEMP 36.2; O2SAT 97
[2023-05-28 14:25] VITALS: BP 163/80; PULSE 75; RESP 16; TEMP 36.5; O2SAT 97
== END 2023-05-28 14:26 | disposition home or self-care (01) ==
PROVIDERS: Emergency Provider Student in an Organized Health Care Education/Training Program; PCP Family Medicine; Visit Provider Student in an Organized Health Care Education/Training Program
DX: L03.316 Cellulitis of umbilicus (principal); J44.9 Chronic obstructive pulmonary disease, unspecified; K42.9 Umbilical hernia without obstruction or gangrene; R11.0 Nausea; E03.9 Hypothyroidism, unspecified; Z79.84 Long term (current) use of oral hypoglycemic drugs; Z79.890 Hormone replacement therapy; Z79.899 Other long term (current) drug therapy; Z99.81 Dependence on supplemental oxygen; F17.210 Nicotine dependence, cigarettes, uncomplicated
CPT/HCPCS: 99282

== ENCOUNTER → 2023-06-28 | Outpatient (CLI) | payer MEDICAID, SELFPAY ==
--- NOTE | 2023-06-28 13:24 | CT_ITS ---
STUDY: LOW DOSE CT LUNG CANCER SCREENING REASON FOR EXAM: Female, 53 years old. Current smoker of 1 pack per day for 30 years. RADIATION DOSAGE (If Supplied By Facility): CTDIvol = ( 4.02 ) mGy, DLP = ( 120.84 ) mGycm TECHNIQUE: No contrast was administered. Low dose technique was utilized (average mAS-38 and kVp 120). 1.25 mm axial source images with a slice interval of 1.25-mm were reconstructed in lung windows. 2.5 mm axial source images with a slice interval of 2.5-mm were reconstructed in lung windows. 5.0 mm axial source images with a slice interval of 5.0-mm were reconstructed in soft tissue windows. COMPARISON: Comparison is made with prior study June 26, 2022. NODULES: No suspicious nodules are seen. Emphysema: No significant emphysematous changes are present. Endobronchial lesion: Unremarkable Aorta: Mild degree of atherosclerotic plaque formation. CORONARY ARTERIES: Coronary artery calcification is seen. Heart: Unremarkable Pulmonary artery: Unremarkable Mediastinal nodes: Unremarkable Other chest and abdominal findings: CT/Low Dose CT Lung Screening IMPRESSION: Lung-RADS category 2 - Continue annual screening with LDCT in 12 months. IMPORTANT NOTES FOR USE: ACR Lung-RADS Version 1.1 Assessment Categories Release Date: 2018 Category: Coded 0-4 bases on nodule(s) with highest degree of suspicion. Negative screen is defined as categories 1 and 2; a positive screen is defined as categories 3 and 4. Category 3 and 4A nodules that are unchanged on interval CT should be coded as category 2, and individuals returned to screening in 12 months. Category 4X: Category 3 or 4 nodules with additional imaging findings that increase the suspicion of lung cancer, such as spiculation, GGN that doubles in size in 1 year, enlarged lymph notes, etc. Category Modifiers: S (significant finding unrelated to lung cancer) Electronically Signed: Jeffy Gomez MD at 15:30 EDT ,
== END | disposition home or self-care (01) ==
LOC: CT 13:24
PROVIDERS: PCP Family Medicine; Visit Provider Nurse Practitioner Acute Care
DX: F17.210 Nicotine dependence, cigarettes, uncomplicated (principal)
CPT/HCPCS: 71271

== ENCOUNTER → 2023-12-10 | Outpatient (CLI) | payer MEDICAID, SELFPAY ==
--- NOTE | 2023-12-10 13:36 | ECHOCS_ITS ---
Reason For Study: REEVALUATE PASP, EF Procedure This was a 2D Doppler, Color Flow transthoracic echocardiogram. The study was technically difficult. Limited views were obtained. Contrast injection was performed. Exam performed in department. Left Ventricle Normal LV size. The estimated ejection fraction is 60 %. No evidence for diastolic dysfunction. No regional wall motion abnormalities noted. Right Ventricle Normal RV size. Normal systolic function. Atria The left and right atria are normal. No doppler evidence for ASD. Mitral Valve There is no mitral valve stenosis. No mitral valve insufficiency. Tricuspid Valve There is no tricuspid stenosis. Unable to estimate RV systolic pressure due to inadequate jet, pulmonary artery pressure probably normal. Aortic Valve Trisinus/trileaflet aortic valve. There is no aortic stenosis. No aortic valve insufficiency. Pulmonic Valve There is no pulmonic valvular stenosis. No pulmonic valve insufficiency. Great Vessels Normal aortic root. Pericardium/Pleural No pericardial effusion. Medication 22 gauge I.V. with prn adaptor inserted into right arm. Diluted definity 3ml given slow IV push to enhance endocardial definition. MMode/2D Measurements & Calculations LVIDd: 4.6 cm IVSd: 1.3 cm Ao root diam: 3.1 cm LVIDs: 3.3 cm LVPWd: 1.6 cm FS: 29.9 % LAV(MOD-sp2): 30.0 ml LVAd ap4: 36.6 cm2 SV(MOD-sp4): 55.7 ml LVLd ap4: 8.4 cm EDV(MOD-sp4): 127.6 ml EDV(sp4-el): 135.0 ml LVAs ap4: 26.0 cm2 LVLs ap4: 7.5 cm ESV(MOD-sp4): 71.9 ml ESV(sp4-el): 76.9 ml EF(MOD-sp4): 43.6 % EF(sp4-el): 43.1 % SV(sp4-el): 58.2 ml LA dimension(2D): 3.5 cm Time Measurements MV dec time: 0.14 sec Doppler Measurements & Calculations MV E max george: 98.1 cm/sec Lat Peak E' George: 8.2 cm/sec Med Peak E' George: 14.0 cm/sec MV A max george: 91.0 cm/sec E/E' lat: 12.0 E/E' med: 7.0 MV E/A: 1.1 MV V2 max: 98.1 cm/sec MV dec slope: 758.0 cm/sec2 Ao V2 max: 127.6 cm/sec MV max P.9 mmHg Ao max P.5 mmHg MV V2 mean: 68.3 cm/sec Ao V2 mean: 93.9 cm/sec MV mean P.0 mmHg Ao mean P.9 mmHg MV V2 VTI: 26.9 cm Ao V2 VTI: 28.2 cm AV (velocity ratio): 0.94 LV V1 max: 131.1 cm/sec PA V2 max: 164.2 cm/sec LV V1 max P.9 mmHg PA V2 mean: 109.3 cm/sec LV V1 mean P.1 mmHg LV V1 mean: 83.9 cm/sec LV V1 VTI: 26.5 cm ECHO/Echo Complete W/ Contrast Interpretation Summary The estimated ejection fraction is 60 %. No evidence for diastolic dysfunction. Ordering Physician: Jayson Coy Referring Physician: Jayson Coy Performed By: Maria Antonia Grossman RCS
== END | disposition home or self-care (01) ==
LOC: CVS 13:35
PROVIDERS: PCP Family Medicine; Referring Provider Nurse Practitioner Family; Visit Provider Nurse Practitioner Family
DX: R06.09 Other forms of dyspnea (principal); R06.02 Shortness of breath
CPT/HCPCS: 93306; Q9957; A4216; C8929

== ENCOUNTER → 2024-01-05 | Outpatient (CLI) | payer MEDICAID, SELFPAY ==
[2024-01-05 17:33] LABS: Absolute Lymphocyte Count 3.55 X10^3/uL (0.83-4.51); Absolute Neutrophil Count 8.2 X10^3/uL (2.0-7.7); Basophil# 0.11 X10^3/uL; Basophil% 0.8 % (0-1); Eosinophil# 0.33 X10^3/uL; Eosinophils% 2.5 % (0-5); Hematocrit 52.3 % (37-47); Hemoglobin 15.3 g/dL (12.0-15.0); Lymphocyte # 3.55 X10^3/ul (0.83-4.51); Lymphocyte % 26.9 % (19-41); Mean Corp Hgb Conc 29.3 g/dL (32-36); Mean Corpuscular Hgb 23.9 pg (27.0-32.0); Mean Corpuscular Volume 81.7 fL (81-99); Mean Platelet Vol. 12.2 fl (6.2-12.0); Monocyte# 0.92 X10^3/uL; NRBC Flagged by Analyzer 0 % (0-5); Neutrophil # 8.21 X10^3/uL (2.7-7.7); Neutrophil % 62.3 % (47-70); POSITIVE MORPHOLOGY YES; Platelet Count 174 K/mm3 (150-450); RBC Distribution Width CV 21.2 % (11.6-14.6); RBC Distribution Width SD 58.9 fl (35.1-43.9); White Blood Count 13.2 K/mm3 (4.4-11.0)
[2024-01-05 17:38] LABS: Differential Indicated SCAN CRITERIA MET
[2024-01-05 18:05] LABS: T3 Total - Triiodothyronine 1.05 ng/mL (0.6-1.81); Vitamin D,25 Hydroxy 71.6 ng/mL
[2024-01-05 18:10] LABS: Hemoglobin A1c 6.4 % (3.8-5.6)
[2024-01-05 18:14] LABS: ALB/GLOB Ratio 0.7 RATIO (0.9-2.4); AST(SGOT) 46 U/L (15-37); Alanine Aminotransfer ALT/SGPT 65 U/L (13-56); Albumin, Serum 3.2 g/dL (3.2-5.0); Alkaline Phosphatase 92 U/L (45-117); Anion Gap 3 (5-15); BUN 15 mg/dL (7-18); BUN/Creat Ratio 20.5 RATIO (10-20); Calcium,Total 9.2 mg/dL (8.5-10.1); Chloride 103 mmol/L (98-107); Cholesterol 135 mg/dL (200); Creatinine, Serum 0.73 mg/dL (0.55-1.02); EST Glomerular Filtration Rate 89 mL/min (>60); Est Glom Filt Rate - Afr Amer 108 mL/min (>60); Globulin 4.7 g/dL (2.2-4.2); Glucose 108 mg/dL (74-106); High Density Lipoprotein 34 mg/dL; Potassium 4.2 mmol/L (3.5-5.1); Protein, Total 7.9 g/dL (6.4-8.2); Sodium Level 137 mmol/L (136-145); T4 Free Direct 1.44 ng/dL (0.76-1.46); Triglycerides 159 mg/dL; Very Low Density Lipoprotein 32 mg/dL (5-40)
[2024-01-05 18:38] LABS: Anisocytosis 1+; Platelet Morphology GIANT; Polychromasia 1+
== END | disposition home or self-care (01) ==
LOC: BFHLAB 14:21
PROVIDERS: PCP Family Medicine; Referring Provider Nurse Practitioner Family; Visit Provider Nurse Practitioner Family
DX: Z00.01 Encounter for general adult medical examination with abnormal findings (principal); I27.20 Pulmonary hypertension, unspecified; E03.9 Hypothyroidism, unspecified; E55.9 Vitamin D deficiency, unspecified; E78.5 Hyperlipidemia, unspecified
CPT/HCPCS: 36415; 80053; 80061; 82306; 83036; 84439; 84443; 84480; 85025

== ENCOUNTER → 2024-05-15 | Outpatient (CLI) | payer MEDICAID, SELFPAY ==
[2024-05-15 16:57] LABS: Vitamin D,25 Hydroxy 66.7 ng/mL (30-100)
== END | disposition home or self-care (01) ==
PROVIDERS: PCP Family Medicine; Referring Provider Nurse Practitioner Family; Visit Provider Nurse Practitioner Family
DX: E55.9 Vitamin D deficiency, unspecified (principal)
CPT/HCPCS: 36415; 82306

== ENCOUNTER → 2024-06-28 | Outpatient (CLI) | payer MEDICAID, SELFPAY ==
--- NOTE | 2024-06-28 12:47 | CT_ITS ---
PROCEDURE: LOW DOSE CT LUNG SCREENING 06/28/2024 REASON FOR EXAM: SMOKING TECHNIQUE: Low Dose CT Lung screening without contrast. Coronal and Sagittal reconstruction series were provided. One or more dose reduction techniques were used (e.g., Automated exposure control, adjustment of the mA and/or kV according to patient size, use of iterative reconstruction technique). REFERENCE LINK: [employer] Lung-RADS COMPARISON: None. FINDINGS: PULMONARY NODULES: (Only nodules >3mm are reported) Nodules described below are on series unless otherwise specified. Pulmonary Nodules: None Hardware:None Lymph Nodes:Unremarkable. Heart and Vasculature:Unremarkable Coronary Artery Calcifications: Absent Lungs and Airways: Mild emphysematous changes are present. Pleura:Unremarkable. Upper Abdomen:Unremarkable. Bones:Moderate dextroscoliosis of the thoracic spine. CT/Low Dose CT Lung Screening IMPRESSION: No active disease. Coronary artery calcification (CAC) is is absent Lung-RADS Category: 1 NEGATIVE. RECOMMEND 12-MONTH SCREENING LDCT. Other Significant Findings: None. Reading Location: [id number]
== END | disposition home or self-care (01) ==
LOC: CT 12:47
PROVIDERS: PCP Nurse Practitioner Family; Referring Provider Nurse Practitioner Acute Care; Visit Provider Nurse Practitioner Acute Care
DX: F17.210 Nicotine dependence, cigarettes, uncomplicated (principal)
CPT/HCPCS: 71271

== ENCOUNTER 2024-08-16 12:42 | Inpatient (IN) | payer MEDICAID, SELFPAY ==
--- NOTE | 2024-08-01 12:14 | EKG12_ITS ---
Test Reason : PREOP Blood Pressure : */* mmHG Vent. Rate : 82 BPM Atrial Rate : 82 BPM P-R Int : 168 ms QRS Dur : 92 ms QT Int : 348 ms P-R-T Axes : 43 -14 44 degrees QTcB Int : 406 ms Normal sinus rhythm Poor R wave progression Borderline Confirmed by Pedrito Salinas ([id number]), avid editor SHARRON CASTANEDA ([id number]) on 08/07/2024 12:51:49 PM Referred By: Silas Benson Confirmed By: Pedrito Salinas
[2024-08-01 13:21] LABS: Hematocrit 50.9 % (37-47); Hemoglobin 15.1 g/dL (12.0-15.0); Mean Corp Hgb Conc 29.7 g/dL (32-36); Mean Corpuscular Hgb 24.8 pg (27.0-32.0); Mean Corpuscular Volume 83.4 fL (81-99); Mean Platelet Vol. 11.5 fl (6.2-12.0); Platelet Count 228 K/mm3 (150-450); RBC Distribution Width CV 18.1 % (11.6-14.6); RBC Distribution Width SD 52.5 fl (35.1-43.9); White Blood Count 12.6 K/mm3 (4.4-11.0)
[2024-08-01 13:33] LABS: International Normalized Ratio 1.1
[2024-08-01 13:34] LABS: Partial Thromboplast Time 32.2 Seconds (24.1-36.2)
[2024-08-01 13:57] LABS: Anion Gap 13 (5-15); BUN 14 mg/dL (4-19); BUN/Creat Ratio 18.6 RATIO (10-20); Calcium,Total 9.2 mg/dL (7.6-11.0); Carbon Dioxide 25.1 mmol/L (21.0-32.0); Chloride 101 mmol/L (98-108); Creatinine, Serum 0.73 mg/dL (0.70-1.20); EST Glomerular Filtration Rate 99 (>60); Glucose 128 mg/dL (70-99); Potassium 4.6 mmol/L (3.3-5.1); Sodium Level 139 mmol/L (133-145)
--- NOTE | 2024-08-01 17:22 | PAT.ANESEVAL ---
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 When Was Last Pacemaker Check QUESTION #4 FULL TEXT: You/Your Family Experience fever (hyperthermia) with Anesthesia Last Oral Intake Last Oral intake: Last Oral Intake NPO since Meds taken in AM with sips of water? Meds patient instructed to take am of surgery PONV PONV - internet cafe manager: PONV - internet cafe manager Female Yes 07/28/24 13:54 HX of Motion Sickness Yes 07/28/24 13:54 HX of N/V After Surgery No 07/28/24 13:54 Non-Smoker No 07/28/24 13:54 Duration of Surgery greater Yes 07/28/24 13:54 than 60 minutes Number of Risk Factors 3 07/28/24 13:54 PONV Score Moderate Risk 07/28/24 13:54 Height & Weight Height & Weight: Anesthesia: Height & Weight Height 5 ft 2 in 07/26/24 14:15 Respiratory Assessment Respiratory Assessment - internet cafe manager: Respiratory Tract Infection Hx - internet cafe manager Hx Respiratory Tract Infection No 07/28/24 13:54 STOP Sleep Apnea STOP Sleep Apnea - internet cafe manager: STOP Sleep Apnea - internet cafe manager Hx Hypertension No 07/28/24 13:54 Hx Sleep Apnea Yes 07/28/24 13:54 CPAP No 07/28/24 13:54 BIPAP Yes: HYPOVENTALATION 07/28/24 13:54 SYNDROME Do you snore loudly (louder than talking or can be heard Do you often feel tired/ fatigued/ sleepy during daytime? Has anyone observed you stop breathing during sleep? STOP Results Positive 07/28/24 13:54 QUESTION #5 FULL TEXT : Do you snore loudly (louder than talking or can be heard through closed doors)? Tobacco Use History Tobacco Use History - internet cafe manager: Tobacco Use History - internet cafe manager Tobacco Use Smoking Status Current every day smoker 07/28/24 13:54 Hx Tobacco Use Yes 07/28/24 13:54 Years Smoking Packs Smoked per Day Smoking Cessation Date was within the last 15 years Hx Smoking Cessation Date Hx Smoking Cessation Counseling Hematologic Medial History Hematologic Hx - internet cafe manager: Hematologic Medical Hx - pbx inspector Hx of Blood Transfusion No 07/28/24 13:54 Hx of Transfusion in last 3 No 07/28/24 13:54 Months Date of Last Transfusion (if within last 3 months) Ever experience any problems No 07/28/24 13:54 with transfusion(s)? Specify any problems Hx of Preganancy in last 3 No 07/28/24 13:54 Months Nurse Filling Out Transfusion DSCHRIBER 07/28/24 13:54 & Questions: Date: 07/28/24 07/28/24 13:54 Time: 13:57 07/28/24 13:54 Patient unable to answer at this time (ie. confused, unrespo /Reproduction History /Reproductive History - internet cafe manager: /Reproductive Hx- internet cafe manager Hx Now No 07/28/24 13:54 Gestational Age (in weeks): EDC: Hx Hx Para Hx Section SAB No 07/28/24 13:54 Active Medications Active Medications: Current Medications Generic Name Dose Route Start Last Admin Trade Name Freq PRN Reason Stop Dose Admin Clindamycin Phosphate 900 mg in 50 mls @ 75 mls/hr 08/02/24 07:30 Cleocin IV 08/02/24 08:09 INTRAOP ONE [facility] Medical History (Updated 07/28/24 @ 14:03 by Betty Moss) Thyroid disease Fatty liver BiPAP (biphasic positive airway pressure) dependence Normal Holter exam Cardiology follow-up encounter Enlarged liver Tobacco abuse Wears glasses Arthritis Polycystic bilateral ovaries Low iron Polycythemia Blood disorder Restless legs Back pain Chronic cough Smoker Hypoxemia On home oxygen therapy Shortness of breath on exertion Leg cramps History of pain when walking History of edema History of stress test History of echocardiogram Hx of cardiac murmur Carbon monoxide poisoning COPD (chronic obstructive pulmonary disease) Pulmonary hypertension Fibromyalgia Vitamin deficiency Vision problems History of seizures Hearing problem History of chronic bronchitis Asthma Seasonal allergies Hidradenitis Hypothyroidism Polycystic ovaries Migraine headache Chronic obstructive asthma Sleep apnea Obesity Lymph edema Home Medications ?Medication ?Instructions ?Recorded ?Last Taken ?Type metformin 1,000 mg tablet 1,000 mg PO BID 10/07/18 Unknown History (Glucophage) cholecalciferol (vitamin D3) 25 5,000 unit PO DAILY 04/10/20 Unknown History mcg (1,000 unit) tablet levothyroxine 200 mcg tablet 250 mcg PO DAILY 01/22/22 Unknown History potassium chloride 10 mEq 20 meq (2 x 10 mEq) PO DAILY #180 07/27/22 Unknown Rx tablet,extended release(part/cryst) tabs albuterol sulfate 90 mcg/actuation 2 puff inhalation Q4H PRN 09/15/23 Unknown Rx aerosol inhaler (Ventolin HFA) shortness of breath or wheezing #18 grams bumetanide 2 mg tablet 2 mg PO DAILY PRN edema #30 tabs 12/01/23 Unknown Rx ammonium lactate 12 % topical cream 1 applic topical QDAY 06/30/24 Unknown History Allergy/AdvReac Type Severity Reaction Status Date / Time bee venom protein (honey bee) Allergy Severe Swelling Verified 07/28/24 13:52 codeine Allergy Severe Anaphylaxis Verified 07/28/24 13:52 levothyroxine sodium Allergy Severe Hives Verified 07/28/24 13:52 medroxyprogesterone acetate Allergy Severe Hives Verified 07/28/24 13:52 (From Provera) Penicillins Allergy Severe Hives Verified 07/28/24 13:52 spironolactone Allergy Severe Hives Verified 07/28/24 13:52 fluticasone (From Flonase) Allergy Intermediate ALLERGY Verified 07/28/24 13:52 Latex, Natural Rubber Allergy Intermediate ALLERGY Verified 07/28/24 13:52 sitagliptin (From Januvia) Allergy Intermediate ALLERGY Verified 07/28/24 13:52 metformin Allergy Mild Hives Verified 07/28/24 13:52 sitagliptin phosphate (From AdvReac Severe Shortness Verified 07/28/24 13:52 Januvia) of breath adhesive tape AdvReac Intermediate SKIN BREAK Verified 07/28/24 13:52 DOWN Family History Mother Hypertension CVA (cerebral vascular accident) Cancer Grandfather Cancer lung Heart disease Grandmother Hypertension Cancer Father CVA (cerebral vascular accident) Brother Diabetes Other Alcoholism /alcohol abuse Arthritis Epilepsy Lung cancer Seizures Uterine cancer Surgical History (Updated 07/28/24 @ 14:03 by Betty Moss) History of hysteroscopy History of nasal surgery history diagnostic laparoscopy History of tonsillectomy Social History household members: none Smoking Status: Current every day smoker tobacco type: cigarettes quit status: not considering quitting alcohol intake: never substance use type: does not use caffeine: Yes Type: tea Number of servings: 2 additional social history: DOES NOT USE ASPIRIN DOES USE IBUPROFEN Audit: Pertinent Findings Pertinent Findings EKG Perinent findings: 03/15/2022. Normal sinus rhythm. Stress test pertinent findings: 07/19/2022. EF is 68%. Mild distal inferior ischemia cannot be excluded. (See echo and cardiac consult below) Echo (EF%) pertinent findings: 12/10/2023. EF is 60%. No aortic stenosis. Consult pertinent findings: 06/30/2024. Dr. Salinas. 1. Palpitations?acute-Holter monitor done showed palpitations were not cardiac in etiology. The patient was in sinus rhythm during the time she was feeling palpitations. Trial of beta-blockers just made the patient feel worse and exacerbated her Raynaud's phenomena. 2. Dyspnea on exertion?acute-multifactorial including morbid obesity, restrictive lung disease. Currently requiring home oxygen. EF is 60% with no valvular disease. 3. Do not feel that further cardiac evaluation is indicated at this time. Additional pertinent findings: Holter monitor?02/11/2022. Normal sinus rhythm. Patient's diary noted rapid heart rate, palpitations, shortness of breath and exhaustion which did not correlate with the scan. Recommendation Anesthesia Recommendation Anesthesia recommendation: OPTIMIZED for anesthesia
[2024-08-16] VITALS (8 sets, daily range): BP systolic 132–143; BP diastolic 77–82; PULSE 72–85; RESP 17–20; TEMP 36.6–36.8; O2SAT 93–95; BMI 63.3; BMI 64.7
--- NOTE | 2024-08-16 11:50 | PCM.PRE.AN2 ---
ASA Classification* ASA Classification ASA Classification: 3 Assessment & Plan Anesthesia* Anesthesia Assessment Anesthesia Assessment: Discussed sedation and/or anesthesia options, risks, benefits, and alternatives with patient/parents/legal guardian/POA. Questions invited. The patient/parents/legal guardian/POA seems to understand and agrees to proceed with anesthesia plan. Reviewed the physical assessment, medical history, allergy history and patient home medications list prior to surgery/procedure/anesthetic and documented any changes. Performed airway and anesthesia risk assessments. Anesthesia Type Anesthesia Type: General Anesthesia Focused Assessment* Temperature: 98.3 F Pulse Rate: 84 Blood Pressure: 132/77 Respiratory Rate: 20 Pulse Ox: 93 Oxygen Flow Rate (L/min): 3 Airway Assessment Mouth opens: >3 cm Mallampati Score: II Labs Anesthesia Preop lab: CBC WBC 12.6 K/mm3 (4.4-11.0) H 08/01/24 12:44 08/01/24 RBC 6.10 M/mm3 (4.2-5.4) H 08/01/24 12:44 08/01/24 Hgb 15.1 g/dL (12.0-15.0) H 08/01/24 12:44 08/01/24 Hct 50.9 % (37-47) H 08/01/24 12:44 08/01/24 Plt Count 228 K/mm3 (150-450) 08/01/24 12:44 08/01/24 CHEMISTRY Potassium 4.6 mmol/L (3.3-5.1) 08/01/24 12:44 08/01/24 Sodium 139 mmol/L (133-145) 08/01/24 12:44 08/01/24 Magnesium 1.9 mg/dL (1.8-2.4) 03/09/14 11:19 03/09/14 BUN 14 mg/dL (4-19) 08/01/24 12:44 08/01/24 Creatinine 0.73 mg/dL (0.70-1.20) 08/01/24 12:44 08/01/24 Glucose 128 mg/dL (70-99) H 08/01/24 12:44 08/01/24 TSH 1.150 uIU/mL (0.300-4.200) 08/01/24 12:44 08/01/24 COAG PT 14.0 SECONDS (11.7-14.9) 08/01/24 12:44 08/01/24 Urine Test Pending 08/16/24 11:26 08/16/24 Pre-Assessment Diagnosis/Proposed Procedure Planned Operative Procedure(s): HERNIA VENTRAL REPAIR NO MESH Anesthesia History 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 When Was Last Pacemaker Check QUESTION #4 FULL TEXT: You/Your Family Experience fever (hyperthermia) with Anesthesia Last Oral Intake Last Oral intake: Last Oral Intake NPO since Meds taken in AM with sips of water? Meds patient instructed to take am of surgery PONV PONV - road boss: PONV - road boss Female Yes 07/28/24 13:54 HX of Motion Sickness Yes 07/28/24 13:54 HX of N/V After Surgery No 07/28/24 13:54 Non-Smoker No 07/28/24 13:54 Duration of Surgery greater Yes 07/28/24 13:54 than 60 minutes Number of Risk Factors 3 07/28/24 13:54 PONV Score Moderate Risk 07/28/24 13:54 Height & Weight Height & Weight: Anesthesia: Height & Weight Height 5 ft 2 in 08/16/24 11:38 Weight: 157 kg 08/16/24 11:38 Body Mass Index (BMI) 63.3 08/16/24 11:38 Respiratory Assessment Respiratory Assessment - road boss: Respiratory Tract Infection Hx - road boss Hx Respiratory Tract Infection No 07/28/24 13:54 STOP Sleep Apnea STOP Sleep Apnea - road boss: STOP Sleep Apnea - road boss Hx Hypertension No 07/28/24 13:54 Hx Sleep Apnea Yes 07/28/24 13:54 CPAP No 07/28/24 13:54 BIPAP Yes: HYPOVENTALATION 07/28/24 13:54 SYNDROME Do you snore loudly (louder than talking or can be heard Do you often feel tired/ fatigued/ sleepy during daytime? Has anyone observed you stop breathing during sleep? STOP Results Positive 07/28/24 13:54 QUESTION #5 FULL TEXT : Do you snore loudly (louder than talking or can be heard through closed doors)? Tobacco Use History Tobacco Use History - road boss: Tobacco Use History - road boss Tobacco Use Smoking Status Current every day smoker 07/28/24 13:54 Hx Tobacco Use Yes 07/28/24 13:54 Years Smoking Packs Smoked per Day Smoking Cessation Date was within the last 15 years Hx Smoking Cessation Date Hx Smoking Cessation Counseling Hematologic Medial History Hematologic Hx - road boss: Hematologic Medical Hx - skin lap bonder Hx of Blood Transfusion No 07/28/24 13:54 Hx of Transfusion in last 3 No 07/28/24 13:54 Months Date of Last Transfusion (if within last 3 months) Ever experience any problems No 07/28/24 13:54 with transfusion(s)? Specify any problems Hx of Preganancy in last 3 No 07/28/24 13:54 Months Nurse Filling Out Transfusion DSCHRIBER 07/28/24 13:54 & Questions: Date: 07/28/24 07/28/24 13:54 Time: 13:57 07/28/24 13:54 Patient unable to answer at this time (ie. confused, unrespo /Reproduction History /Reproductive History - road boss: /Reproductive Hx- road boss Hx Now No 07/28/24 13:54 Gestational Age (in weeks): EDC: Hx Hx Para Hx Section SAB No 07/28/24 13:54 Active Medications Active Medications: Current Medications Generic Name Dose Route Start Last Admin Trade Name Freq PRN Reason Stop Dose Admin Clindamycin Phosphate 900 mg in 50 mls @ 75 mls/hr 08/16/24 12:50 Cleocin IV 08/16/24 13:29 INTRAOP ONE Lactated Ringer's 1,000 mls @ 15 mls/hr 08/16/24 11:30 IV .Q48H NASEEM PFSH Medical History Diabetes Thyroid disease Fatty liver BiPAP (biphasic positive airway pressure) dependence Normal Holter exam Cardiology follow-up encounter Enlarged liver Tobacco abuse Wears glasses Arthritis Polycystic bilateral ovaries Low iron Polycythemia Blood disorder Restless legs Back pain Chronic cough Smoker Hypoxemia On home oxygen therapy Shortness of breath on exertion Leg cramps History of pain when walking History of edema History of stress test History of echocardiogram Hx of cardiac murmur Carbon monoxide poisoning COPD (chronic obstructive pulmonary disease) Pulmonary hypertension Fibromyalgia Vitamin deficiency Vision problems History of seizures Hearing problem History of chronic bronchitis Asthma Seasonal allergies Hidradenitis Hypothyroidism Polycystic ovaries Migraine headache Chronic obstructive asthma Sleep apnea Obesity Lymph edema Home Medications ?Medication ?Instructions ?Recorded ?Last Taken ?Type metformin 1,000 mg tablet 1,000 mg PO BID 10/07/18 08/15/24 History (Glucophage) cholecalciferol (vitamin D3) 25 5,000 unit PO DAILY 04/10/20 08/15/24 History mcg (1,000 unit) tablet potassium chloride 10 mEq 20 meq (2 x 10 mEq) PO DAILY #180 07/27/22 08/15/24 Rx tablet,extended release(part/cryst) tabs albuterol sulfate 90 mcg/actuation 2 puff inhalation Q4H PRN 09/15/23 Unknown Rx aerosol inhaler (Ventolin HFA) shortness of breath or wheezing #18 grams bumetanide 2 mg tablet 2 mg PO DAILY PRN edema #30 tabs 12/01/23 Unknown Rx ammonium lactate 12 % topical cream 1 applic topical QDAY 06/30/24 Unknown History levothyroxine 200 mcg tablet 200 mcg PO DAILY #90 tabs 08/14/24 08/16/24 09:30 Rx levothyroxine 50 mcg tablet 50 mcg PO QDAY #90 tabs 08/14/24 08/16/24 09:30 Rx (Unithroid) Allergy/AdvReac Type Severity Reaction Status Date / Time bee venom protein (honey bee) Allergy Severe Swelling Verified 08/14/24 10:52 codeine Allergy Severe Anaphylaxis Verified 08/14/24 10:52 medroxyprogesterone acetate Allergy Severe Hives Verified 08/14/24 10:52 (From Provera) Penicillins Allergy Severe Hives Verified 08/14/24 10:52 spironolactone Allergy Severe Hives Verified 08/14/24 10:52 fluticasone (From Flonase) Allergy Intermediate ALLERGY Verified 08/14/24 10:52 Latex, Natural Rubber Allergy Intermediate ALLERGY Verified 08/14/24 10:52 sitagliptin (From Januvia) Allergy Intermediate ALLERGY Verified 08/14/24 10:52 metformin Allergy Mild Hives Verified 08/14/24 10:52 sitagliptin phosphate (From AdvReac Severe Shortness Verified 08/14/24 10:52 Januvia) of breath adhesive tape AdvReac Intermediate SKIN BREAK Verified 08/14/24 10:52 DOWN Family History Mother Hypertension CVA (cerebral vascular accident) Cancer Grandfather Cancer lung Heart disease Grandmother Hypertension Cancer Father CVA (cerebral vascular accident) Brother Diabetes Other Alcoholism /alcohol abuse Arthritis Epilepsy Lung cancer Seizures Uterine cancer Surgical History History of hysteroscopy History of nasal surgery history diagnostic laparoscopy History of tonsillectomy Social History household members: none Smoking Status: Current every day smoker tobacco type: cigarettes quit status: not considering quitting alcohol intake: never substance use type: does not use caffeine: Yes Type: tea Number of servings: 2 additional social history: DOES NOT USE ASPIRIN DOES USE IBUPROFEN Review of Systems (Anesthesia) ROS Narrative System reviewed and no additional complaints, except as documented.
[2024-08-16 11:56] LABS: Internal QC Validated? YES +Cl - CLEAR BKGD; Pregnancy, Urine Negative Negative
[2024-08-16] MEDS: Lactated Ringers 1,000 ML 15 ML IV (11:58)
[2024-08-16 12:23] LABS: Bedside Glucose 172 mg/dL (74-106)
[2024-08-16] MEDS: Ipratropium/Albuterol Sulfate 3 ML AMPUL.NEB INHALATION (12:27)
--- NOTE | 2024-08-16 12:40 | CON.PCM.HO_ITS ---
Assessment & Plan Assessment/Plan (1) Umbilical hernia: (2) Hypoxia: PLAN: Plan Patient is a 54-year-old female who presented [facility] on 08/16/2024 for planned umbilical hernia repair. Surgery was postponed due to hypoxia with wheezing on exam with plan for medical optimization prior to a procedure. Medicine was consulted for preoperative management. 1. Umbilical hernia ? General Surgery primary. Has necrotic umbilical stalk and plan is for surgical repair once medically optimized. Tentatively planning for surgical procedure on Wednesday per surgery. 2. Acute hypoxia secondary to mild HFpEF exacerbation ? Not on home oxygen. Requiring up to 3 L nasal cannula to maintain appropriate oxygen saturations. Reported to be wheezing and diminished on exam. Given DuoNeb treatment and 1 dose of IV Lasix on 08/16. On my exam, had mildly diminished breath sounds but no wheezing or crackles noted. Chest x-ray benign. BNP normal though this is underestimated in setting of super morbid obesity. Suspect mild degree of pulmonary vascular congestion in setting of underlying pulmonary hypertension, suspected OHS and COPD as noted below. Last echo in 12/2023 showed normal EF, no diastolic dysfunction. No recent infectious symptoms, low concern for upper respiratory infection or COPD exacerbation. Will plan to give another dose of IV Lasix on 08/17 and wean supplemental oxygen as able. Anticipate that patient will show improvement from respiratory standpoint by Wednesday and be optimized for a procedure. 3. COPD/asthma, pulmonary hypertension, SANTIAGO and suspected obesity hypoventilation syndrome ? Not on home oxygen as noted above. However, suspect patient may have some degree of hypoxia at baseline in setting of super morbid obesity, COPD/asthma and pulmonary hypertension. As noted above, low concern for acute COPD exacerbation. Continue home short acting inhaler as needed. Continue CPAP at night. 4. Class III obesity ? BMI 64 on admit. Complicates hospital course, care and prognosis. 5. Hypothyroidism ? TSH ordered. Continue home Synthroid. 6. Type 2 diabetes mellitus ? Hold home metformin. Treat with sliding scale insulin with meals while inpatient. DVT prophylaxis: Lovenox twice daily CODE STATUS: Full code, verified Expected disposition: TBD Total clinical time spent by myself addressing the patient's medical issues, reviewing all the data, and collaborating with patient's care team: 50 minutes. HPI Consult Data Date of Consult: 08/16/24 HPI Narrative Reason for Consultation: Preoperative medical management HPI Narrative: BACILIO CHIN, is a 54 F who presented to [facility] on 08/16/2024 for planned umbilical hernia repair. However, on preoperative evaluation this morning anesthesia found the patient was hypoxic with some wheezing and diminished breath sounds on exam. She does not wear home oxygen and was requiring 3 L nasal cannula to maintain appropriate oxygen saturations. Has history of morbid obesity with BMI 64, SANTIAGO, COPD/asthma, pulmonary hypertension and hypothyroidism. Given these things, decision was made to delay surgery in order to medically optimize patient prior to a procedure. I saw the patient at bedside early this afternoon. Patient was sitting back in bedside chair and breathing comfortably on 3 L nasal cannula at rest with oxygen saturations in the low to mid 90s. She had been given a breathing treatment and a dose of IV Lasix a few hours prior to when I saw her. She noted the breathing treatment was not very effective for her but that she had had significant urine output with the Lasix. Notably she is prescribed Bumex 2 mg daily as needed but has not taken this for at least 2 to 3 months. She denies any worsening peripheral edema or signs of heart failure. She otherwise feels comfortable at rest currently and denies any shortness of breath. No other acute concerns currently. FORMERLY [facility], 1928–1983 Medical History Diabetes Thyroid disease Fatty liver BiPAP (biphasic positive airway pressure) dependence Normal Holter exam Cardiology follow-up encounter Enlarged liver Tobacco abuse Wears glasses Arthritis Polycystic bilateral ovaries Low iron Polycythemia Blood disorder Restless legs Back pain Chronic cough Smoker Hypoxemia On home oxygen therapy Shortness of breath on exertion Leg cramps History of pain when walking History of edema History of stress test History of echocardiogram Hx of cardiac murmur Carbon monoxide poisoning COPD (chronic obstructive pulmonary disease) Pulmonary hypertension Fibromyalgia Vitamin deficiency Vision problems History of seizures Hearing problem History of chronic bronchitis Asthma Seasonal allergies Hidradenitis Hypothyroidism Polycystic ovaries Migraine headache Chronic obstructive asthma Sleep apnea Obesity Lymph edema Home Medications ?Medication ?Instructions ?Recorded ?Last Taken ?Type metformin 1,000 mg tablet 1,000 mg PO BID 10/07/1812/30 History (Glucophage) cholecalciferol (vitamin D3) 25 5,000 unit PO DAILY 08/15/24 History mcg (1,000 unit) tablet potassium chloride 10 mEq 20 meq (2 x 10 mEq) PO DAILY #180 07/27/22 08/15/24 Rx tablet,extended release(part/cryst) tabs albuterol sulfate 90 mcg/actuation 2 puff inhalation Q 4H PRN 09/15/23 Unknown Rx aerosol inhaler (Ventolin HFA) shortness of breath or wheezing #18 grams bumetanide 2 mg tablet 2 mg PO DAILY PRN edema #30 tabs 12/01/23 Unknown Rx ammonium lactate 12 % topical cream 1 applic topical Q DAY 06/30/24 Unknown History levothyroxine 200 mcg tablet 200 mcg PO DAILY #90 tabs 08/14/24 08/16/24 09:30 Rx levothyroxine 50 mcg tablet 50 mcg PO QDAY #90 tabs 08/16/24 09:30 Rx (Unithroid) Allergy/AdvReac Type Severity Reaction Status Date / Time bee venom protein (honey bee) Allergy Severe Swelling Verified 08/14/24 10:52 codeine Allergy Severe Anaphylaxis Verified 08/14/24 10:52 medroxyprogesterone acetate Allergy Severe Hives Verified 08/14/24 10:52 (From Provera) Penicillins Allergy Severe Hives Verified 08/14/24 10:52 spironolactone Allergy Severe Hives Verified 08/14/24 10:52 fluticasone (From Flonase) Allergy Intermediate ALLERGY Verified 08/14/24 10:52 Latex, Natural Rubber Allergy Intermediate ALLERGY Verified 08/14/24 10:52 sitagliptin (From Januvia) Allergy Intermediate ALLERGY Verified 08/14/24 10:52 metformin Allergy Mild Hives Verified 08/14/24 10:52 sitagliptin phosphate (From AdvReac Severe Shortness Verified 08/14/24 10:52 Januvia) of breath adhesive tape AdvReac Intermediate SKIN BREAK Verified 08/14/24 10:52 DOWN Family History Mother Hypertension CVA (cerebral vascular accident) Cancer Grandfather Cancer lung Heart disease Grandmother Hypertension Cancer Father CVA (cerebral vascular accident) Brother Diabetes Other Alcoholism /alcohol abuse Arthritis Epilepsy Lung cancer Seizures Uterine cancer Surgical History History of hysteroscopy History of nasal surgery history diagnostic laparoscopy History of tonsillectomy Social History household members: none Smoking Status: Current every day smoker tobacco type: cigarettes quit status: not considering quitting alcohol intake: never substance use type: does not use caffeine: Yes Type: tea Number of servings: 2 additional social history: DOES NOT USE ASPIRIN DOES USE IBUPROFEN ROS Constitutional Constitutional: Denies chills, fatigue, fever(s) or weakness Eyes Eyes: Denies change in vision Cardiovascular Cardiovascular: Denies chest pain Respiratory/Chest Respiratory/Chest: Denies cough, shortness of breath at rest, shortness of breath with exertion or wheezing Gastrointestinal Gastrointestinal: Denies abdominal pain, constipation, diarrhea, nausea or vomiting Musculoskeletal Musculoskeletal: Denies arthralgias or myalgias Physical Exam Const alert, oriented x3 and no apparent distress Constitutional Narrative: Pleasant middle-age female, super morbid obesity, sitting up comfortably in bedside chair, conversing normally, in no acute distress. General Appearance: cooperative and comfortable HEENT normocephalic, head/scalp atraumatic, hearing grossly normal bilaterally, nasal mucous membranes and turbinates normal and moist oral mucous membranes Eyes PERRL, EOMs intact bilaterally and conjunctivae normal Neck full ROM Chest inspection of chest normal Resp normal respiratory effort and no use of accessory muscles Resp Narrative: Breathing comfortably on 3 L nasal cannula at rest. Mildly diminished breath sounds bilaterally throughout but no wheezing or crackles noted. Cardio regular rate, regular rhythm, no murmurs and peripheral pulses 2+ throughout GI normal to inspection, nondistended, normoactive bowel sounds, soft to palpation, non-tender and non-distended Back/Spine normal ROM Extremity normal to inspection, full ROM and no pedal edema Skin no rashes or lesions noted Psych mental status grossly normal Lab / Micro Data 08/16/24 15:35 08/16/24 15:35 Labs: Laboratory Results - last 24 hr 08/16/24 11:26: Urine Test Negative 08/16/24 12:04: POC Glucose 172 H Charges/Coding Visit Charges Inpatient E&M: 64662 Subs Hosp L3
--- NOTE | 2024-08-16 12:45 | PCM.HP.STD ---
HPI - General HPI Narrative BACILIO NEELY, is a 54 F who presents for umbilical hernia repair. [facility] Medical History Diabetes Thyroid disease Fatty liver BiPAP (biphasic positive airway pressure) dependence Normal Holter exam Cardiology follow-up encounter Enlarged liver Tobacco abuse Wears glasses Arthritis Polycystic bilateral ovaries Low iron Polycythemia Blood disorder Restless legs Back pain Chronic cough Smoker Hypoxemia On home oxygen therapy Shortness of breath on exertion Leg cramps History of pain when walking History of edema History of stress test History of echocardiogram Hx of cardiac murmur Carbon monoxide poisoning COPD (chronic obstructive pulmonary disease) Pulmonary hypertension Fibromyalgia Vitamin deficiency Vision problems History of seizures Hearing problem History of chronic bronchitis Asthma Seasonal allergies Hidradenitis Hypothyroidism Polycystic ovaries Migraine headache Chronic obstructive asthma Sleep apnea Obesity Lymph edema Home Medications ?Medication ?Instructions ?Recorded ?Last Taken ?Type metformin 1,000 mg tablet 1,000 mg PO BID 10/07/18 08/15/24 History (Glucophage) cholecalciferol (vitamin D3) 25 5,000 unit PO DAILY 04/10/20 08/15/24 History mcg (1,000 unit) tablet potassium chloride 10 mEq 20 meq (2 x 10 mEq) PO DAILY #180 07/27/22 08/15/24 Rx tablet,extended release(part/cryst) tabs albuterol sulfate 90 mcg/actuation 2 puff inhalation Q4H PRN 09/15/23 Unknown Rx aerosol inhaler (Ventolin HFA) shortness of breath or wheezing #18 grams bumetanide 2 mg tablet 2 mg PO DAILY PRN edema #30 tabs 12/01/23 Unknown Rx ammonium lactate 12 % topical cream 1 applic topical QDAY 06/30/24 Unknown History levothyroxine 200 mcg tablet 200 mcg PO DAILY #90 tabs 08/14/24 08/16/24 09:30 Rx levothyroxine 50 mcg tablet 50 mcg PO QDAY #90 tabs 08/14/24 08/16/24 09:30 Rx (Unithroid) Allergy/AdvReac Type Severity Reaction Status Date / Time bee venom protein (honey bee) Allergy Severe Swelling Verified 08/14/24 10:52 codeine Allergy Severe Anaphylaxis Verified 08/14/24 10:52 medroxyprogesterone acetate Allergy Severe Hives Verified 08/14/24 10:52 (From Provera) Penicillins Allergy Severe Hives Verified 08/14/24 10:52 spironolactone Allergy Severe Hives Verified 08/14/24 10:52 fluticasone (From Flonase) Allergy Intermediate ALLERGY Verified 08/14/24 10:52 Latex, Natural Rubber Allergy Intermediate ALLERGY Verified 08/14/24 10:52 sitagliptin (From Januvia) Allergy Intermediate ALLERGY Verified 08/14/24 10:52 metformin Allergy Mild Hives Verified 08/14/24 10:52 sitagliptin phosphate (From AdvReac Severe Shortness Verified 08/14/24 10:52 Januvia) of breath adhesive tape AdvReac Intermediate SKIN BREAK Verified 08/14/24 10:52 DOWN Family History Mother Hypertension CVA (cerebral vascular accident) Cancer Grandfather Cancer lung Heart disease Grandmother Hypertension Cancer Father CVA (cerebral vascular accident) Brother Diabetes Other Alcoholism /alcohol abuse Arthritis Epilepsy Lung cancer Seizures Uterine cancer Surgical History History of hysteroscopy History of nasal surgery history diagnostic laparoscopy History of tonsillectomy Social History household members: none Smoking Status: Current every day smoker tobacco type: cigarettes quit status: not considering quitting alcohol intake: never substance use type: does not use caffeine: Yes Type: tea Number of servings: 2 additional social history: DOES NOT USE ASPIRIN DOES USE IBUPROFEN ROS Constitutional Constitutional: Denies anorexia, chills, fatigue or fever(s) Eyes Eyes: Denies blurry vision ENT HEENT: Denies abnormal hearing Cardiovascular Cardiovascular: Denies chest pain Respiratory/Chest Respiratory/Chest: Reports dyspnea and dyspnea on exertion; Denies productive cough Gastrointestinal Gastrointestinal: Denies abdominal pain, nausea or vomiting Genitourinary Genitourinary: Denies change in urinary stream Musculoskeletal Musculoskeletal: Denies abnormal gait Integumentary Integumentary: Denies jaundice Neurologic Neurologic: Denies abnormal gait Vital Signs Vital Signs Vital Signs: 08/16/24 11:38 08/16/24 11:38 08/16/24 11:51 Temperature 98.3 F 98.3 F Temperature Source Temporal Pulse Rate 84 84 Respiratory Rate 20 H 20 H Respiratory Pattern Normal Blood Pressure 132/77 H 132/77 H Blood Pressure Mean 95 Blood Pressure Source Monitor Blood Pressure Position Sitting Blood Pressure Location Right Arm Pulse Ox 93 93 Oxygen Delivery Method Nasal Cannula Oxygen Flow Rate (L/min) 3 3 Weight Weight: 346 lb 2.012 oz Body Mass Index (BMI) 63.3 Physical Exam Const oriented x3 Resp Auscultation: wheezes Cardio regular rate and regular rhythm GI soft to palpation Results Lab / Micro Data 08/01/24 12:44 08/01/24 12:44 Labs: Laboratory Results - last 24 hr 08/16/24 11:26: Urine Test Negative 08/16/24 12:04: POC Glucose 172 H Assessment & Plan Assessment/Plan (1) Umbilical hernia: PLAN: We brought the patient in today to attempt umbilical hernia repair with removal of the umbilical stalk which is necrotic. Unfortunately the patient is having significant wheezing and is saturating poorly on room air. This is a change as the patient normally does not take oxygen at home unless she is exerting herself. The patient is also having wheezing on the right. I would like to admit the patient to optimize her for surgery on Wednesday and we will reschedule the surgery to Wednesday. I have consulted the hospitalist to resume her Lasix and I will order a chest x-ray. Silas Benson MD Pager: [facility] [address] [place] [address], [address] [place] [phone] Office:
--- NOTE | 2024-08-16 14:25 | RAD_ITS ---
PROCEDURE: CHEST PA AND LATERAL 08/16/2024 REASON FOR EXAM: SHORTNESS OF BREATH TECHNIQUE: Frontal and lateral views of the chest. COMPARISON: Prior study dated March 15, 2022. FINDINGS: Hardware: EKG electrodes are seen. Heart: The heart size is normal. Mediastinum: The mediastinal contour is unremarkable. Lungs: The lungs are clear. Bones: Degenerative changes are identified within the thoracic spine. RAD/Chest PA and Lateral IMPRESSION: NO ACUTE FINDINGS. Reading Location: [facility]-
[2024-08-16] MEDS: 0.9% Saline Lock 10 ML Syringe IV ×2 (15:13→22:12)
[2024-08-16] MEDS: Furosemide 100 MG/10 ML Vial 60 MG IV (15:13)
[2024-08-16 15:59] LABS: Hemoglobin 14.2 g/dL (12.0-15.0); Mean Corp Hgb Conc 29.6 g/dL (32-36); Mean Corpuscular Hgb 24.4 pg (27.0-32.0); Mean Corpuscular Volume 82.6 fL (81-99); Mean Platelet Vol. 11.5 fl (6.2-12.0); Platelet Count 203 K/mm3 (150-450); RBC Distribution Width CV 18.5 % (11.6-14.6); RBC Distribution Width SD 52.1 fl (35.1-43.9); Red Blood Count 5.81 M/mm3 (4.2-5.4); White Blood Count 12.9 K/mm3 (4.4-11.0)
[2024-08-16 16:18] LABS: AST(SGOT) 41 U/L (<=31); Alanine Aminotransfer ALT/SGPT 33 U/L (<=34); Albumin, Serum 3.7 g/dL (3.5-5.0); Alkaline Phosphatase 90 U/L (35-104); Anion Gap 10 (5-15); BUN 10 mg/dL (4-19); BUN/Creat Ratio 15.6 RATIO (10-20); Calcium,Total 8.9 mg/dL (7.6-11.0); Chloride 101 mmol/L (98-108); Creatinine, Serum 0.63 mg/dL (0.70-1.20); EST Glomerular Filtration Rate 107 (>60); Estimated Creatinine Clearance 155.52 ml/min (50-250); Globulin 3.7 g/dL (2.2-4.2); Glucose 149 mg/dL (70-99); Potassium 4.4 mmol/L (3.3-5.1); Pro- Brain NATRIURETIC PEPTIDE < 36 pg/mL (<=900); Protein, Total 7.4 g/dL (5.9-8.4); Sodium Level 139 mmol/L (133-145); Total Bilirubin 0.66 mg/dL (0.00-1.30)
[2024-08-16 16:53] LABS: Bedside Glucose 174 mg/dL (74-106)
[2024-08-16] MEDS: Insulin Lispro 100 UNIT/ML INSULN.PEN SC (16:53)
--- NOTE | 2024-08-16 20:46 | CPS ---
Pt is on home CPAP with 3L bleed in
[2024-08-16] MEDS: Enoxaparin 40 MG/0.4 ML Syringe SC (22:11)
[2024-08-16 22:34] LABS: Bedside Glucose 124 mg/dL (74-106)
[2024-08-17] VITALS (9 sets, daily range): BP systolic 116–139; BP diastolic 59–83; PULSE 69–76; RESP 18–19; TEMP 36.4–37.1; O2SAT 94–96
[2024-08-17 05:35] LABS: Absolute Lymphocyte Count 2.78 X10^3/uL (0.83-4.51); Basophil# 0.07 X10^3/uL; Basophil% 0.6 % (0-1); Eosinophil# 0.23 X10^3/uL; Eosinophils% 2.1 % (0-5); Hemoglobin 14.3 g/dL (12.0-15.0); Lymphocyte # 2.78 X10^3/ul (0.83-4.51); Lymphocyte % 25.5 % (19-41); Mean Corp Hgb Conc 29.8 g/dL (32-36); Mean Corpuscular Hgb 24.6 pg (27.0-32.0); Mean Corpuscular Volume 82.5 fL (81-99); Mean Platelet Vol. 11.6 fl (6.2-12.0); Monocyte# 0.77 X10^3/uL; Monocyte% 7.1 % (0-10); NRBC Flagged by Analyzer 0 % (0-5); Neutrophil # 7.01 X10^3/uL (2.7-7.7); Neutrophil % 64.3 % (47-70); Platelet Count 187 K/mm3 (150-450); RBC Distribution Width CV 18.4 % (11.6-14.6); Red Blood Count 5.82 M/mm3 (4.2-5.4); White Blood Count 10.9 K/mm3 (4.4-11.0)
[2024-08-17] MEDS: Nystatin Powder 15gm Bottle 1 APPLIC TOPICAL ×2 (06:01→21:29)
[2024-08-17] MEDS: Levothyroxine 50 MCG Tablet PO (06:02)
[2024-08-17 06:05] LABS: Anion Gap 9 (5-15); BUN 12 mg/dL (4-19); Calcium,Total 9.1 mg/dL (7.6-11.0); Carbon Dioxide 31.2 mmol/L (21.0-32.0); Chloride 102 mmol/L (98-108); Creatinine, Serum 0.64 mg/dL (0.70-1.20); EST Glomerular Filtration Rate 106 (>60); Estimated Creatinine Clearance 153.09 ml/min (50-250); Glucose 164 mg/dL (70-99); Potassium 4.2 mmol/L (3.3-5.1); Sodium Level 142 mmol/L (133-145)
[2024-08-17] MEDS: Insulin Lispro 100 UNIT/ML INSULN.PEN SC ×3 (06:15→21:28)
[2024-08-17] MEDS: Levothyroxine 100 MCG Tablet 200 MCG PO (06:17)
[2024-08-17 06:38] LABS: Bedside Glucose 170 mg/dL (74-106)
--- NOTE | 2024-08-17 07:02 | PCM.PN.SRG ---
Subjective Subjective Patient still has some drainage from her umbilicus, denies any pain. Patient states with her BiPAP she still was 88% when they checked last night. Patient did receive Lasix last night. Objective Data Objective Data Vital Signs: Vital Signs Temp Pulse Resp BP Pulse Ox O2 Del Method O2 Flow Rate 97.6 F L 75 18 136/70 H 94 Nasal Cannula 3 08/17/24 06:27 08/17/24 06:27 08/17/24 06:27 08/17/24 06:27 08/17/24 06:27 08/17/24 06:27 08/17/24 06:27 Oxygen Flow Rate (L/min) 3 Oxygen Delivery Method Nasal Cannula Weight: 354 lb 2 oz Body Mass Index (BMI) 64.7 Intake & Output: Intake and Output for Last 24 Hours 08/15/24 08/16/24 08/17/24 23:59 23:59 23:59 Intake Total 105.5 / 105.5 Output Total 800 / 800 Balance -694.5 / -694.5 Lab / Micro Data 08/17/24 05:20 08/17/24 05:20 Labs: Laboratory Results - last 24 hr 08/16/24 11:26: Urine Test Negative 08/16/24 12:04: POC Glucose 172 H 08/16/24 15:35: WBC 12.9 H, RBC 5.81 H, Hgb 14.2, Hct 48.0 H, MCV 82.6, MCH 24.4 L, MCHC 29.6 L, RDW Std Deviation 52.1 H, RDW Coeff of Radha 18.5 H, Plt Count 203, MPV 11.5, Sodium 139, Potassium 4.4, Chloride 101, Carbon Dioxide 27.0, Anion Gap 10, BUN 10, Creatinine 0.63 L, Estim Creat Clear Calc 155.52, Est GFR (MDRD) Non-Af 107, BUN/Creatinine Ratio 15.6, Glucose 149 H, Calcium 8.9, Total Bilirubin 0.66, AST 41 H, ALT 33, Alkaline Phosphatase 90, NT pro BNP II < 36, Total Protein 7.4, Albumin 3.7, Globulin 3.7, Albumin/Globulin Ratio 1.0, TSH 0.660 08/16/24 16:35: POC Glucose 174 H 08/16/24 22:09: POC Glucose 124 H 08/17/24 05:20: WBC 10.9, RBC 5.82 H, Hgb 14.3, Hct 48.0 H, MCV 82.5, MCH 24.6 L, MCHC 29.8 L, RDW Std Deviation 52.0 H, RDW Coeff of Radha 18.4 H, Plt Count 187, MPV 11.6, Immature Gran % (Auto) 0.400, Neut % (Auto) 64.3, Lymph % (Auto) 25.5, Bandera % (Auto) 7.1, Eos % (Auto) 2.1, Baso % (Auto) 0.6, Absolute Neuts (auto) 7.0, Absolute Lymphs (auto) 2.78, Nucleated RBC % 0, Sodium 142, Potassium 4.2, Chloride 102, Carbon Dioxide 31.2, Anion Gap 9, BUN 12, Creatinine 0.64 L, Estim Creat Clear Calc 153.09, Est GFR (MDRD) Non-Af 106, BUN/Creatinine Ratio 19.0, Glucose 164 H, Calcium 9.1 08/17/24 06:05: POC Glucose 170 H Radiography Diagnostic Testing: Radiology Impression Chest X-Ray 08/16/24 14:25 IMPRESSION: NO ACUTE FINDINGS. Reading Location: [facility]- Physical Exam Const oriented x3 and no apparent distress Cardio regular rate GI soft to palpation and non-tender GI Narrative: Umbilical hernia incarcerated with small amount of drainage from the umbilicus due to the necrotic stalk Extremity General Extremity: edema Assessment & Plan Assessment/Plan (1) Umbilical hernia: PLAN: Plan for surgery tomorrow with Dr. Benson due to the necrotic umbilical stalk. Appreciate medicine's assistance with optimization for surgery, n.p.o. at midnight. Marsha De Leon M.D. Pager: [phone] [facility] [address] [place] [address], [facility], [address] [place] [phone] Office: [phone]
[2024-08-17] MEDS: 0.9% Saline Lock 10 ML Syringe IV ×2 (09:43→18:10)
[2024-08-17] MEDS: Enoxaparin 40 MG/0.4 ML Syringe SC ×2 (09:44→21:28)
[2024-08-17] MEDS: Furosemide 40 MG/4 ML Vial IV ×2 (09:44→18:10)
[2024-08-17] MEDS: Ammonium Lactate 225 gm Bottle 1 APPLIC TOPICAL ×2 (09:44→21:29)
[2024-08-17] MEDS: Cholecalciferol (Vit D3) 125 MCG CAPSULE (5,000 UNITS) PO (09:45)
[2024-08-17 09:56] LABS: Magnesium 2.2 mg/dL (1.5-2.2)
--- NOTE | 2024-08-17 11:11 | PCM.PN.HOSP ---
Reason for Visit Reason for Visit: Diagnoses Umbilical hernia without obstruction or gangrene (08/16/24) Hypoxemia (08/16/24) Encounter for other preprocedural examination (08/16/24) Subjective Subjective Saw patient at bedside this morning. Patient appeared similar today to yesterday. Breathing comfortably on 3 L nasal cannula at rest with oxygen saturations in the mid 90s. Continues to have good breath sounds bilaterally with only mildly diminished breath sounds in bilateral bases and no wheezing for me. Notes that she wore CPAP overnight and tolerated this without issue. Denies any shortness of breath. No other acute concerns this morning. Objective Data Objective Data Vital Signs: Vital Signs Temp Pulse Resp BP Pulse Ox O2 Del Method O2 Flow Rate 97.8 F 71 19 H 139/59 H 95 Nasal Cannula 3 08/17/24 09:26 08/17/24 09:26 08/17/24 09:26 08/17/24 09:26 08/17/24 09:26 08/17/24 09:26 08/17/24 09:26 Oxygen Flow Rate (L/min) 3 Oxygen Delivery Method Nasal Cannula Weight: 160.628 kg Body Mass Index (BMI) 64.7 Intake & Output: Intake and Output for Last 24 Hours 08/15/24 08/16/24 08/17/24 23:59 23:59 23:59 Intake Total 105.5 / 105.5 Output Total 800 / 800 Balance -694.5 / -694.5 Lab / Micro Data 08/17/24 05:20 08/17/24 05:20 Labs: Laboratory Results - last 24 hr 08/16/24 11:26: Urine Test Negative 08/16/24 12:04: POC Glucose 172 H 08/16/24 15:35: WBC 12.9 H, RBC 5.81 H, Hgb 14.2, Hct 48.0 H, MCV 82.6, MCH 24.4 L, MCHC 29.6 L, RDW Std Deviation 52.1 H, RDW Coeff of Radha 18.5 H, Plt Count 203, MPV 11.5, Sodium 139, Potassium 4.4, Chloride 101, Carbon Dioxide 27.0, Anion Gap 10, BUN 10, Creatinine 0.63 L, Estim Creat Clear Calc 155.52, Est GFR (MDRD) Non-Af 107, BUN/Creatinine Ratio 15.6, Glucose 149 H, Calcium 8.9, Total Bilirubin 0.66, AST 41 H, ALT 33, Alkaline Phosphatase 90, NT pro BNP II < 36, Total Protein 7.4, Albumin 3.7, Globulin 3.7, Albumin/Globulin Ratio 1.0, TSH 0.660 08/16/24 16:35: POC Glucose 174 H 08/16/24 22:09: POC Glucose 124 H 08/17/24 05:05: Magnesium 2.2 08/17/24 05:20: WBC 10.9, RBC 5.82 H, Hgb 14.3, Hct 48.0 H, MCV 82.5, MCH 24.6 L, MCHC 29.8 L, RDW Std Deviation 52.0 H, RDW Coeff of Radha 18.4 H, Plt Count 187, MPV 11.6, Immature Gran % (Auto) 0.400, Neut % (Auto) 64.3, Lymph % (Auto) 25.5, [place] % (Auto) 7.1, Eos % (Auto) 2.1, Baso % (Auto) 0.6, Absolute Neuts (auto) 7.0, Absolute Lymphs (auto) 2.78, Nucleated RBC % 0, Sodium 142, Potassium 4.2, Chloride 102, Carbon Dioxide 31.2, Anion Gap 9, BUN 12, Creatinine 0.64 L, Estim Creat Clear Calc 153.09, Est GFR (MDRD) Non-Af 106, BUN/Creatinine Ratio 19.0, Glucose 164 H, Calcium 9.1 08/17/24 06:05: POC Glucose 170 H Radiography Diagnostic Testing: Radiology Impression Chest X-Ray 08/16/24 14:25 IMPRESSION: NO ACUTE FINDINGS. Reading Location: [facility] Physical Exam Const alert, oriented x3 and no apparent distress Constitutional Narrative: Pleasant middle-age female, super morbid obesity, sitting up comfortably in bedside chair, conversing normally, in no acute distress. Stable. General Appearance: cooperative and comfortable HEENT normocephalic, head/scalp atraumatic, hearing grossly normal bilaterally, nasal mucous membranes and turbinates normal and moist oral mucous membranes Eyes PERRL, EOMs intact bilaterally and conjunctivae normal Neck full ROM Chest inspection of chest normal Resp normal respiratory effort and no use of accessory muscles Resp Narrative: Breathing comfortably on 3 L nasal cannula at rest. Mildly diminished breath sounds in bilateral lung bases but otherwise good air movement in upper airways and no wheezing or crackles noted. Cardio regular rate, regular rhythm, no murmurs and peripheral pulses 2+ throughout GI normal to inspection, nondistended, normoactive bowel sounds, soft to palpation, non-tender and non-distended GI Narrative: Umbilical hernia noted. Back/Spine normal ROM Extremity normal to inspection, full ROM and no pedal edema Skin no rashes or lesions noted Psych mental status grossly normal Assessment & Plan Assessment/Plan (1) Umbilical hernia: (2) Hypoxia: PLAN: Plan Patient is a 54-year-old female who presented [facility] on 08/16/2024 for planned umbilical hernia repair. Surgery was postponed due to hypoxia with wheezing on exam with plan for medical optimization prior to a procedure. Medicine was consulted for preoperative management. 1. Umbilical hernia ? General Surgery primary. Has necrotic umbilical stalk and plan is for surgical repair once medically optimized. Planning for surgery tomorrow, n.p.o. at midnight. 2. Acute hypoxia secondary to mild HFpEF exacerbation ? Not on home oxygen. Requiring up to 3 L nasal cannula to maintain appropriate oxygen saturations. Reported to be wheezing and diminished on exam. Given DuoNeb treatment and 1 dose of IV Lasix on 08/16. On my exam, had mildly diminished breath sounds but no wheezing or crackles noted. Chest x-ray benign. BNP normal though this is underestimated in setting of super morbid obesity. Suspect mild degree of pulmonary vascular congestion in setting of underlying pulmonary hypertension, suspected OHS and COPD as noted below. Last echo in 12/2023 showed normal EF, no diastolic dysfunction. No recent infectious symptoms, low concern for upper respiratory infection or COPD exacerbation. Will give 2 doses of IV Lasix today and start p.o. Lasix 40 mg daily tomorrow and anticipate patient will have no issue from a respiratory standpoint with the procedure tomorrow. 3. COPD/asthma, pulmonary hypertension, [place] and suspected obesity hypoventilation syndrome ? Not on home oxygen as noted above. However, suspect patient may have some degree of hypoxia at baseline in setting of super morbid obesity, COPD/asthma and pulmonary hypertension. As noted above, low concern for acute COPD exacerbation. Continue home short acting inhaler as needed. Continue CPAP at night. 4. Class III obesity ? BMI 64 on admit. Complicates hospital course, care and prognosis. 5. Hypothyroidism ? TSH 0.66. Continue home Synthroid. 6. Type 2 diabetes mellitus ? Hold home metformin. Continue treatment with sliding scale insulin with meals while inpatient. DVT prophylaxis: Lovenox twice daily CODE STATUS: Full code, verified Expected disposition: TBD Total clinical time spent by myself addressing the patient's medical issues, reviewing all the data, and collaborating with patient's care team: 35 minutes. Charges/Coding Visit Charges Inpatient E&M: 74030 Subs Hosp L2
[2024-08-17 11:45] LABS: Bedside Glucose 160 mg/dL (74-106)
--- NOTE | 2024-08-17 12:30 | CASEMGMT ---
Addendum entered by Jacquie Burrell 08/17/24 15:12: TC to [facility] to verify oxygen rx. Per Eufemia, pt is to wear 3L continuous and pt has a Vanna vent with 3L at night bled in. Per pt, she was not wearing oxygen other than at night. Original Note: SHELLY LI Assessment: Face to Face with pt for initial transition planning/care coordination assessment. SHELLY LI introduced self and role at [facility], pt voices understanding and consents to assessment. Pt is A&O x4 and answers all questions appropriately at this time. Pt sitting up in bed with oxygen on in no distress. Care providers, pharmacy, and demographics verified/updated. Admitting Dx: hernia, ventral repair no mesh Strata Score: 1 PCP:Bernard Specialists: katherine Olson; albertina Stein; GI from [facility] Michele; Cyndi, reproductive onc; [facility] Preferred Pharmacy: [facility] Insurance: [facility] Prescription Benefit: yes LNOK: Ginger Davalos, sister Living Arrangements: Pt lives alone in a single story apt with 3 steps to enter. Pt reports she is I in ADL/IADLs and does not use AD. Pt denies concerns at home. Transportation: Pt does not drive. Pt sister transports her to medical appts. DME:bipap with oxygen bled in through [facility], portable oxygen tanks HHC/SNF: Denies hx of Pt states no concerns with going home at time of dc. 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 Pt states her bipap is working at home but she is wondering if she needs more oxygen bled in. Discussed with hospitalist overnight pox as pt nurse requested, not ordered at this time. Pt to have OR tomorrow. Pt has brown scaling closed area to her left chin. 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 Denies any open areas of skin/wounds. Pt states no further concerns/needs. CM to follow. Advised pt to ask CM if any further questions/concerns/needs arise, voices understanding. Pt Goal: Home Plan: Home Kaylynn BRAVO CM
[2024-08-17 16:24] LABS: Bedside Glucose 139 mg/dL (74-106)
[2024-08-17 21:54] LABS: Bedside Glucose 188 mg/dL (74-106)
[2024-08-18] VITALS (23 sets, daily range): BP systolic 124–186; BP diastolic 59–117; PULSE 63–88; RESP 16–27; TEMP 36.4–37.2; O2SAT 84–98; BMI 64.7; BMI 65.1
[2024-08-18] MEDS: Levothyroxine 100 MCG Tablet 200 MCG PO (04:40)
[2024-08-18] MEDS: Acetaminophen 325 MG Tablet 650 MG PO ×3 (04:40→21:18)
[2024-08-18] MEDS: Levothyroxine 50 MCG Tablet PO (04:40)
[2024-08-18] MEDS: Insulin Lispro 100 UNIT/ML INSULN.PEN SC ×2 (06:34→13:20)
[2024-08-18 06:54] LABS: Bedside Glucose 159 mg/dL (74-106)
[2024-08-18 07:14] LABS: Anion Gap 12 (5-15); BUN 12 mg/dL (4-19); BUN/Creat Ratio 19.8 RATIO (10-20); Calcium,Total 9.2 mg/dL (7.6-11.0); Carbon Dioxide 30.3 mmol/L (21.0-32.0); Chloride 97 mmol/L (98-108); Creatinine, Serum 0.59 mg/dL (0.70-1.20); EST Glomerular Filtration Rate 109 (>60); Estimated Creatinine Clearance 166.07 ml/min (50-250); Glucose 145 mg/dL (70-99); Magnesium 2.2 mg/dL (1.5-2.2); Potassium 3.7 mmol/L (3.3-5.1); Sodium Level 140 mmol/L (133-145)
[2024-08-18 07:27] LABS: Absolute Lymphocyte Count 2.19 X10^3/uL (0.83-4.51); Absolute Neutrophil Count 5.7 X10^3/uL (2.0-7.7); Basophil# 0.07 X10^3/uL; Basophil% 0.8 % (0-1); Eosinophil# 0.22 X10^3/uL; Eosinophils% 2.5 % (0-5); Hematocrit 47.3 % (37-47); Lymphocyte # 2.19 X10^3/ul (0.83-4.51); Lymphocyte % 24.6 % (19-41); Mean Corp Hgb Conc 29.6 g/dL (32-36); Mean Corpuscular Hgb 24.3 pg (27.0-32.0); Monocyte# 0.72 X10^3/uL; Monocyte% 8.1 % (0-10); NRBC Flagged by Analyzer 0 % (0-5); Neutrophil # 5.67 X10^3/uL (2.7-7.7); Neutrophil % 63.6 % (47-70); Platelet Count 179 K/mm3 (150-450); RBC Distribution Width CV 18.2 % (11.6-14.6); RBC Distribution Width SD 51.1 fl (35.1-43.9); Red Blood Count 5.77 M/mm3 (4.2-5.4); White Blood Count 8.9 K/mm3 (4.4-11.0)
--- NOTE | 2024-08-18 09:16 | PCM.PRE.AN2 ---
ASA Classification* ASA Classification ASA Classification: 3 Assessment & Plan Anesthesia* Anesthesia Assessment Anesthesia Assessment: Discussed sedation and/or anesthesia options, risks, benefits, and alternatives with patient/parents/legal guardian/POA. Questions invited. The patient/parents/legal guardian/POA seems to understand and agrees to proceed with anesthesia plan. Reviewed the physical assessment, medical history, allergy history and patient home medications list prior to surgery/procedure/anesthetic and documented any changes. Performed airway and anesthesia risk assessments. Anesthesia Type Anesthesia Type: General Anesthesia Focused Assessment* Temperature: 97.8 F Pulse Rate: 68 Blood Pressure: 135/72 Respiratory Rate: 18 Pulse Ox: 95 Oxygen Flow Rate (L/min): 3 Vital signs additional comments: Patient without any wheezing in the lungs this morning. Has continued Lasix throughout the last 2 days. Hospitalist feels that the patient is optimized for her upcoming surgery. Patient is aware that there may be need for ventilation in the postop period. She seems to understand and agrees with the plan. Airway Assessment Mouth opens: >3 cm Mallampati Score: II Labs Anesthesia Preop lab: CBC WBC 8.9 K/mm3 (4.4-11.0) 08/18/24 05:25 08/18/24 RBC 5.77 M/mm3 (4.2-5.4) H 08/18/24 05:25 08/18/24 Hgb 14.0 g/dL (12.0-15.0) 08/18/24 05:25 08/18/24 Hct 47.3 % (37-47) H 08/18/24 05:25 08/18/24 Plt Count 179 K/mm3 (150-450) 08/18/24 05:25 08/18/24 CHEMISTRY Potassium 3.7 mmol/L (3.3-5.1) 08/18/24 05:25 08/18/24 Sodium 140 mmol/L (133-145) 08/18/24 05:25 08/18/24 Magnesium 2.2 mg/dL (1.5-2.2) 08/18/24 05:25 08/18/24 BUN 12 mg/dL (4-19) 08/18/24 05:25 08/18/24 Creatinine 0.59 mg/dL (0.70-1.20) L 08/18/24 05:25 08/18/24 Glucose 145 mg/dL (70-99) H 08/18/24 05:25 08/18/24 POC Glucose 159 mg/dL (74-106) H 08/18/24 06:33 08/18/24 TSH 0.660 uIU/mL (0.300-4.200) 08/16/24 15:35 08/16/24 COAG PT 14.0 SECONDS (11.7-14.9) 08/01/24 12:44 08/01/24 Urine Test Negative Negative 08/16/24 11:26 08/16/24 Pre-Assessment Diagnosis/Proposed Procedure Planned Operative Procedure(s): HERNIA VENTRAL REPAIR NO MESH Anesthesia History 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 When Was Last Pacemaker Check QUESTION #4 FULL TEXT: You/Your Family Experience fever (hyperthermia) with Anesthesia Last Oral Intake Last Oral intake: Last Oral Intake NPO since Meds taken in AM with sips of water? Meds patient instructed to take am of surgery PONV PONV - spar machine operator helper: PONV - spar machine operator helper Female Yes 07/28/24 13:54 HX of Motion Sickness Yes 07/28/24 13:54 HX of N/V After Surgery No 07/28/24 13:54 Non-Smoker No 07/28/24 13:54 Duration of Surgery greater Yes 07/28/24 13:54 than 60 minutes Number of Risk Factors 3 07/28/24 13:54 PONV Score Moderate Risk 07/28/24 13:54 Height & Weight Height & Weight: Anesthesia: Height & Weight Height 5 ft 2 in 08/16/24 13:59 Weight: 160.628 kg 08/16/24 13:59 Body Mass Index (BMI) 64.7 08/16/24 13:59 Respiratory Assessment Respiratory Assessment - spar machine operator helper: Respiratory Tract Infection Hx - spar machine operator helper Hx Respiratory Tract Infection No 08/16/24 22:25 STOP Sleep Apnea STOP Sleep Apnea - spar machine operator helper: STOP Sleep Apnea - spar machine operator helper Hx Hypertension No 08/16/24 17:06 Hx Sleep Apnea hypoventilation syndrome 08/16/24 14:42 CPAP No 07/28/24 13:54 BIPAP Yes 08/16/24 14:42 Do you snore loudly (louder Yes 08/16/24 14:42 than talking or can be heard Do you often feel tired/ Yes 08/16/24 14:42 fatigued/ sleepy during daytime? Has anyone observed you stop No 08/16/24 14:42 breathing during sleep? STOP Results Positive 08/16/24 14:42 QUESTION #5 FULL TEXT : Do you snore loudly (louder than talking or can be heard through closed doors)? Tobacco Use History Tobacco Use History - spar machine operator helper: Tobacco Use History - spar machine operator helper Tobacco Use Smoking Status Current every day smoker 08/16/24 20:46 Hx Tobacco Use Yes 08/16/24 14:42 Years Smoking 30 08/16/24 14:42 Packs Smoked per Day 1 08/16/24 14:42 Smoking Cessation Date was within the last 15 years Hx Smoking Cessation Date Hx Smoking Cessation Counseling Hematologic Medial History Hematologic Hx - spar machine operator helper: Hematologic Medical Hx - rn clinical documentation specialist Hx of Blood Transfusion No 08/16/24 14:42 Hx of Transfusion in last 3 No 08/16/24 14:42 Months Date of Last Transfusion (if within last 3 months) Ever experience any problems No 08/16/24 14:42 with transfusion(s)? Specify any problems Hx of Preganancy in last 3 No 08/16/24 14:42 Months Nurse Filling Out Transfusion AGARVER 08/16/24 14:42 & Questions: Date: 08/16/24 08/16/24 14:42 Time: 14:42 08/16/24 14:42 Patient unable to answer at this time (ie. confused, unrespo /Reproduction History /Reproductive History - spar machine operator helper: /Reproductive Hx- spar machine operator helper Hx Now No 08/16/24 22:25 Gestational Age (in weeks): EDC: Hx Hx Para Hx Section SAB No 08/16/24 22:25 Active Medications Active Medications: Current Medications Generic Name Dose Route Start Last Admin Trade Name Freq PRN Reason Stop Dose Admin Acetaminophen 650 mg 08/16/24 12:42 08/18/24 04:40 Acetaminophen 325 Mg Tablet PO 650 mg Q4H PRN PRN Administration Pain 1-10 or Fever Albuterol Sulfate 2.5 mg 08/16/24 15:00 Albuterol 2.5 Mg/3 Ml Vial.Neb. INHALATION Q4H PRN shortness of breath or wheezing Cholecalciferol 125 mcg 08/17/24 10:00 08/17/24 09:45 Cholecalciferol (Vit D3) 125 Mcg Capsule (5,000 Units) PO 125 mcg DAILY NASEEM Administration Enoxaparin Sodium 40 mg 08/16/24 22:00 08/18/24 04:33 Enoxaparin 40 Mg/0.4 Ml Syringe SC Not Given BID NASEEM Furosemide 40 mg 08/18/24 10:00 Furosemide 40 Mg Tablet PO DAILY NASEEM Protocol Glucagon 1 mg 08/16/24 15:00 Glucagon 1 Mg/Ml Syringe IM X1 PRN Hypoglycemia Protocol Sodium Chloride 250 mls @ 15 mls/hr 08/16/24 13:45 IV .[id number] PRN Saline Flush Sodium Chloride 250 mls @ 15 mls/hr 08/16/24 13:45 IV .[id number] PRN Additional IVPB Infusion Dextrose 250 mls @ 0 mls/hr 08/16/24 15:00 Dextrose 10%-Water IV .Q0M PRN HYPOGLYCEMIA Protocol As Directed Clindamycin Phosphate 900 mg in 50 mls @ 75 mls/hr 08/18/24 11:00 Cleocin IV 08/18/24 11:39 INTRAOP ONE Insulin Human Lispro 0 unit 08/16/24 16:00 08/18/24 06:34 Insulin Lispro 100 Unit/Ml Insuln.Pen SC 1 unit ACHS NASEEM Administration Protocol Lactic Acid 1 applic 08/17/24 10:00 08/17/24 21:29 Ammonium Lactate 225 Gm Bottle TOPICAL 1 applic BID NASEEM Administration Levothyroxine Sodium 50 mcg 08/17/24 06:00 08/18/24 04:40 Levothyroxine 50 Mcg Tablet PO 50 mcg DAILY@0600 NASEEM Administration Levothyroxine Sodium 200 mcg 08/17/24 06:00 08/18/24 04:40 Levothyroxine 100 Mcg Tablet PO 200 mcg DAILY@0600 NASEEM Administration Melatonin 3 mg 08/16/24 22:00 Melatonin 3 Mg Tablet PO QHS PRN PRN INSOMNIA Nystatin 1 applic 08/17/24 10:00 08/17/24 21:29 Nystatin Powder 15gm Bottle TOPICAL 1 applic BID NASEEM Administration Protocol Ondansetron HCl 4 mg 08/16/24 15:00 Ondansetron 4 Mg/2 Ml Vial IV Q8H PRN PRN NAUSEA/VOMITING Sodium Chloride 10 - 40 ml 08/16/24 12:42 08/17/24 18:10 0.9% Saline Lock 10 Ml Syringe IV 10 ml UD PRN Administration SALINE FLUSH Sodium Chloride 10 - 40 ml 08/16/24 13:45 0.9% Saline Lock 10 Ml Syringe IV UD PRN SALINE FLUSH PFSH Medical History Diabetes Thyroid disease Fatty liver BiPAP (biphasic positive airway pressure) dependence Normal Holter exam Cardiology follow-up encounter Enlarged liver Tobacco abuse Wears glasses Arthritis Polycystic bilateral ovaries Low iron Polycythemia Blood disorder Restless legs Back pain Chronic cough Smoker Hypoxemia On home oxygen therapy Shortness of breath on exertion Leg cramps History of pain when walking History of edema History of stress test History of echocardiogram Hx of cardiac murmur Carbon monoxide poisoning COPD (chronic obstructive pulmonary disease) Pulmonary hypertension Fibromyalgia Vitamin deficiency Vision problems History of seizures Hearing problem History of chronic bronchitis Asthma Seasonal allergies Hidradenitis Hypothyroidism Polycystic ovaries Migraine headache Chronic obstructive asthma Sleep apnea Obesity Lymph edema Home Medications ?Medication ?Instructions ?Recorded ?Last Taken ?Type metformin 1,000 mg tablet 1,000 mg PO BID 10/07/18 08/15/24 History (Glucophage) cholecalciferol (vitamin D3) 25 5,000 unit PO DAILY 04/10/20 08/15/24 History mcg (1,000 unit) tablet potassium chloride 10 mEq 20 meq (2 x 10 mEq) PO DAILY #180 07/27/22 08/15/24 Rx tablet,extended release(part/cryst) tabs albuterol sulfate 90 mcg/actuation 2 puff inhalation Q4H PRN 09/15/23 Unknown Rx aerosol inhaler (Ventolin HFA) shortness of breath or wheezing #18 grams bumetanide 2 mg tablet 2 mg PO DAILY PRN edema #30 tabs 12/01/23 Unknown Rx ammonium lactate 12 % topical cream 1 applic topical QDAY 06/30/24 Unknown History levothyroxine 200 mcg tablet 200 mcg PO DAILY #90 tabs 08/14/24 08/16/24 09:30 Rx levothyroxine 50 mcg tablet 50 mcg PO QDAY #90 tabs 08/14/24 08/16/24 09:30 Rx (Unithroid) Allergy/AdvReac Type Severity Reaction Status Date / Time bee venom protein (honey bee) Allergy Severe Swelling Verified 08/14/24 10:52 codeine Allergy Severe Anaphylaxis Verified 08/14/24 10:52 medroxyprogesterone acetate Allergy Severe Hives Verified 08/14/24 10:52 (From Provera) Penicillins Allergy Severe Hives Verified 08/14/24 10:52 spironolactone Allergy Severe Hives Verified 08/14/24 10:52 fluticasone (From Flonase) Allergy Intermediate ALLERGY Verified 08/14/24 10:52 Latex, Natural Rubber Allergy Intermediate ALLERGY Verified 08/14/24 10:52 sitagliptin (From Januvia) Allergy Intermediate ALLERGY Verified 08/14/24 10:52 metformin Allergy Mild Hives Verified 08/14/24 10:52 sitagliptin phosphate (From AdvReac Severe Shortness Verified 08/14/24 10:52 Januvia) of breath adhesive tape AdvReac Intermediate SKIN BREAK Verified 08/14/24 10:52 DOWN Family History Mother Hypertension CVA (cerebral vascular accident) Cancer Grandfather Cancer lung Heart disease Grandmother Hypertension Cancer Father CVA (cerebral vascular accident) Brother Diabetes Other Alcoholism /alcohol abuse Arthritis Epilepsy Lung cancer Seizures Uterine cancer Surgical History History of hysteroscopy History of nasal surgery history diagnostic laparoscopy History of tonsillectomy Social History household members: none Smoking Status: Current every day smoker tobacco type: cigarettes quit status: not considering quitting alcohol intake: never substance use type: does not use caffeine: Yes Type: tea Number of servings: 2 additional social history: DOES NOT USE ASPIRIN DOES USE IBUPROFEN Review of Systems (Anesthesia) ROS Narrative System reviewed and no additional complaints, except as documented.
--- NOTE | 2024-08-18 09:38 | NURSING ---
Pt leaving room/floor at this time via bed, pt going to surgery
--- NOTE | 2024-08-18 10:06 | PCM.PN.HOSP ---
Reason for Visit Reason for Visit: Diagnoses Umbilical hernia without obstruction or gangrene (08/16/24) Hypoxemia (08/16/24) Encounter for other preprocedural examination (08/16/24) Subjective Subjective Saw patient at bedside this morning shortly before she went down for her procedure. She appeared similar to previous days. Was breathing comfortably on 3 L nasal cannula at rest. On further discussion with case management, patient has prescription for continuous home 3 L of oxygen but apparently had not been wearing it recently. Suspect patient is at her baseline currently. No other new concerns today. Objective Data Objective Data Vital Signs: Vital Signs Temp Pulse Resp BP Pulse Ox O2 Del Method O2 Flow Rate 98.5 F 70 20 H 127/68 H 94 Nasal Cannula 3 08/18/24 10:03 08/18/24 10:03 08/18/24 10:03 08/18/24 10:03 08/18/24 10:03 08/18/24 10:03 08/18/24 10:03 Oxygen Flow Rate (L/min) 3 Oxygen Delivery Method Nasal Cannula Weight: 160.628 kg Body Mass Index (BMI) 65.1 Intake & Output: Intake and Output for Last 24 Hours 08/16/24 08/17/24 08/18/24 23:59 23:59 23:59 Intake Total 105.5 / 105.5 440 / 440 Output Total 800 / 800 Balance -694.5 / -694.5 440 / 440 Lab / Micro Data 08/18/24 05:25 08/18/24 05:25 Labs: Laboratory Results - last 24 hr 08/17/24 11:19: POC Glucose 160 H 08/17/24 16:05: POC Glucose 139 H 08/17/24 21:26: POC Glucose 188 H 08/18/24 05:25: WBC 8.9, RBC 5.77 H, Hgb 14.0, Hct 47.3 H, MCV 82.0, MCH 24.3 L, MCHC 29.6 L, RDW Std Deviation 51.1 H, RDW Coeff of Radha 18.2 H, Plt Count 179, MPV 12.0, Immature Gran % (Auto) 0.400, Neut % (Auto) 63.6, Lymph % (Auto) 24.6, [place] % (Auto) 8.1, Eos % (Auto) 2.5, Baso % (Auto) 0.8, Absolute Neuts (auto) 5.7, Absolute Lymphs (auto) 2.19, Nucleated RBC % 0, Sodium 140, Potassium 3.7, Chloride 97 L, Carbon Dioxide 30.3, Anion Gap 12, BUN 12, Creatinine 0.59 L, Estim Creat Clear Calc 166.07, Est GFR (MDRD) Non-Af 109, BUN/Creatinine Ratio 19.8, Glucose 145 H, Calcium 9.2, Magnesium 2.2 08/18/24 06:33: POC Glucose 159 H Physical Exam Const alert, oriented x3 and no apparent distress Constitutional Narrative: Pleasant middle-age female, super morbid obesity, sitting up comfortably in bedside chair, conversing normally, in no acute distress. Stable. General Appearance: cooperative and comfortable HEENT normocephalic, head/scalp atraumatic, hearing grossly normal bilaterally, nasal mucous membranes and turbinates normal and moist oral mucous membranes Eyes PERRL, EOMs intact bilaterally and conjunctivae normal Neck full ROM Chest inspection of chest normal Resp normal respiratory effort and no use of accessory muscles Resp Narrative: Breathing comfortably on 3 L nasal cannula at rest. Mildly diminished breath sounds in bilateral lung bases but otherwise good air movement in upper airways and no wheezing or crackles noted. Stable. Cardio regular rate, regular rhythm, no murmurs and peripheral pulses 2+ throughout GI normal to inspection, nondistended, normoactive bowel sounds, soft to palpation, non-tender and non-distended GI Narrative: Umbilical hernia noted. Back/Spine normal ROM Extremity normal to inspection, full ROM and no pedal edema Skin no rashes or lesions noted Psych mental status grossly normal Assessment & Plan Assessment/Plan (1) Umbilical hernia: (2) Hypoxia: PLAN: Plan Patient is a 54-year-old female who presented [facility] on 08/16/2024 for planned umbilical hernia repair. Surgery was postponed due to hypoxia with wheezing on exam with plan for medical optimization prior to a procedure. Medicine was consulted for preoperative management. 1. Umbilical hernia ? General Surgery primary. Has necrotic umbilical stalk and plan is for surgical repair today. Appreciate further general surgery recommendations. 2. Chronic hypoxic respiratory failure in setting of COPD/asthma overlap syndrome, pulmonary hypertension, S[place]IAGO and obesity hypoventilation syndrome ? Initially thought patient was not on home oxygen. However, confirmed with case management that patient has prescription for 3 L nasal cannula continuously at home. Was thought that patient may have mild volume overload but chest x-ray was clear and BNP normal. Did give 3 doses of IV Lasix with moderate urine output but patient remained stable on 3 L nasal cannula. Suspect patient is at her baseline. No need for further Lasix at this time. Continue home short acting inhaler as needed and continue CPAP at night. 3. Class III obesity ? BMI 64 on admit. Complicates hospital course, care and prognosis. 4. Hypothyroidism ? TSH 0.66. Continue home Synthroid. 5. Type 2 diabetes mellitus ? Hold home metformin. Continue treatment with sliding scale insulin with meals while inpatient. DVT prophylaxis: Lovenox twice daily CODE STATUS: Full code, verified Expected disposition: Home, TBD Total clinical time spent by myself addressing the patient's medical issues, reviewing all the data, and collaborating with patient's care team: 35 minutes. Charges/Coding Visit Charges Inpatient E&M: 56591 Subs Hosp L2
[2024-08-18 10:37] LABS: Bedside Glucose 160 mg/dL (74-106)
[2024-08-18] MEDS: Clindamycin 900 MG/50 ML BAG 75 MG IV (11:00)
--- NOTE | 2024-08-18 11:00 | HERN_PTH ---
PATIENT: BACILIO NEELY LOC: MS3 U#:[id number] AGE/SX: 54/F ROOM: [facility] [place]08[place]16/[address]: Dr. Silas Benson MD : 1970 BED: 1 DIS: 08/20/2024 SPEC #: [id number] RECD: 08/18/24 12:14 STATUS: EVER INGE #: [id number] NAILA: 08/18/24 11:[address]: Silas Benson DEPT: SURGICAL PATHOLOGY RECD BY: Troy Hamlin ENTERED: 08/18/24 13:26 SP TYPE: Hernia OTHR DR: Dr. Alexandr Gold, DO Padmini Wagner, NUTRITION CLUB AMBASSADOR-C Tissues: A - HERNIA Procedures: Surgery Specimen Level IV HEADER OPERATION: Ventral herniorrhaphy PRE-OP DIAGNOSIS: Incarcerated ventral hernia TISSUE SUBMITTED: A- Ventral hernia sac, omentum and skin MICROSCOPIC DIAGNOSIS A. Skin, omentum, and hernia sac, excision: * Ulcerated skin with active chronic inflammation and fibrosis. * Benign adipose consistent with omentum. * Inflamed fibromembranous tissue consistent with hernia sac. MICROSCOPIC DESCRIPTION Slides are reviewed. GROSS DESCRIPTION A.? Received in formalin labeled the patient's name and date of . Designated as ventral hernia sac, omentum and skin 25.0 x 15.0 x 1.4 cm portion of major-yellow lobulated soft tissue (consistent with omentum), 2 irregular and undesignated portions of skin (4.3 x 2.7 x 0.8 cm and 6.5 x 3.5 x 2.8 cm) and a 3.5 x 1.6 x 0.7 cm portion of pink-major to purple fibromembranous tissue.? The largest portion of skin has attached, congested fibromembranous tissue and a 2.6 cm linear defect with surrounding granularity. Project Consultant sections of the soft tissue, skin, and fibromembranous tissue are submitted in 1 cassette. IN 08/18/2024 CPT:71881
[2024-08-18] MEDS: Bupiv/Epi 0.25% 30 ML Vial (11:40)
--- NOTE | 2024-08-18 11:55 | OP.PCM_ITS ---
Operative Report (Standard) Operative Information Date of Procedure: 08/18/24 Pre-Operative Diagnosis: Incarcerated ventral hernia with necrosis of skin Post-Operative Diagnosis: Same Surgery/Procedure Performed: Incarcerated ventral hernia repair psychiatric nurse practitioner: Yes Dispensary Technician: Karla Mckinney Tasks completed by certified surgical first assistant: Retracting Type of Anesthesia: General/Regional RN Documented Start/Stop Times: Operation Date: 08/18/24 11:00 Case Time Into Pre-Op 08/18/24 09:47 Anesthesia Start 08/18/24 10:43 Into Room 08/18/24 10:43 Procedure Start 08/18/24 11:05 Procedure End 08/18/24 11:44 Anesthesia End 08/18/24 11:53 Out of Room 08/18/24 11:53 Procedure Start Time: 11:05 Procedure Stop Time: 11:44
--- NOTE | 2024-08-18 11:55 | PCM.OPRPT ---
Operative Report (Standard) Operative Information Date of Procedure: 08/18/24 Pre-Operative Diagnosis: Incarcerated ventral hernia with necrosis of skin Post-Operative Diagnosis: Same Surgery/Procedure Performed: Incarcerated ventral hernia repair hothouse worker: Yes Signals Analyst: Karla Mckinney Tasks completed by marketing operations assistant: Retracting Type of Anesthesia: General/Regional RN Documented Start/Stop Times: Operation Date: 08/18/24 11:00 Case Time Into Pre-Op 08/18/24 09:47 Anesthesia Start 08/18/24 10:43 Into Room 08/18/24 10:43 Procedure Start 08/18/24 11:05 Procedure End 08/18/24 11:44 Anesthesia End 08/18/24 11:53 Out of Room 08/18/24 11:53 Procedure Start Time: 11:05 Procedure Stop Time: 11:44 Select all DRAINS/GRAFTS/IMPLANTS that apply: None Estimated Blood Loss: 20 Specimen collected: Yes Description of specimen(s) removed: Skin, hernia sac, omentum Description of surgery: Patient was brought to the operating room and general anesthesia was induced. The abdomen was prepped and draped in usual sterile fashion. A curvilinear incision was marked lateral to the umbilicus and then incised using a scalpel. The hernia sac was entered and the omental contents were removed to the side so the hernia sac could be dissected free. I was unable to reduce the entire omentum so it was amputated using LigaSure impact. What was left of the omentum was reduced. The hernia itself measured approximately 2 cm in diameter. It was closed with interrupted [id number] #1 Prolene sutures. Next the subcutaneous tissue was irrigated and suctioned dry. The skin that was necrotic was resected using electrocautery. Next local anesthetic was injected and then the skin was closed with interrupted 2-0 nylon sutures. Dressing was applied and patient was taken to PACU in stable condition. Surgical Findings: Incarcerated ventral hernia containing omentum Complications Complications: No Admit VTE Documentation VTE Mechan Device Prophylaxis: SCD's
--- NOTE | 2024-08-18 12:02 | PCM.POST.ANE ---
Anesthesia: Postop Eval I Current Vital Signs Temperature: 98.6 F Pulse Rate: 88 Blood Pressure: 180/100 Respiratory Rate: 26 Pulse Ox: 94 Oxygen Delivery Method: Bi-pap Fraction of Inspired Oxygen (FIO2): 0.6 Assessment Airway patent: Yes Spontaneous unlabored respirations: Yes Mental status: Awake nausea: No Vomiting: No Anesthesia Complication: No Fluid Hydration Crystalloid volume administer (ml): 250 Total IV fluid infused: 250 Progress Note Anesthesia document: Postop Eval 1 completed: Yes
--- NOTE | 2024-08-18 12:54 | POSTOPAN2_ITS ---
Anesthesia Postop Eval I Sum Postop Eval Completion status Anesthesia document: Postop Eval 1 completed: Yes Anesthesia Postop Eval I Summary Anesthesia Postop Eval I Summary: Anesthesia Postop Eval I: Assessment Summary Airway patent Yes 08/18/24 12:03 FLAT SHEET [email or web address] Spontaneous unlabored Yes 08/18/24 12:03 FLAT SHEET [email or web address].[email or web address] respirations Mental status Awake 08/18/24 12:03 FLAT SHEET [email or web address] nausea No 08/18/24 12:03 FLAT SHEET [email or web address].[email or web address] Vomiting No 08/18/24 12:03 FLAT SHEET [email or web address].SAM Anesthesia Postop Eval I: Fluid Summary Crystalloid volume administer 250 08/18/24 12:03 FLAT SHEET [email or web address].[email or web address] (ml) Colloids volume administered ( ml) Blood Product volume administered (ml) Total IV fluid infused 250 08/18/24 12:03 FLAT SHEET [email or web address].HARVINDER Anesthesia Postop Eval I: Summary Notes Anesthesia Complication No 08/18/24 12:03 FLAT SHEET [email or web address].SAM Anesthesia Complication Comment: Post-operative progress note Anesthesia: Postop Eval II Evaluation Mental status: Awake and Calm Pain Level: 2 nausea: No Vomiting: No
--- NOTE | 2024-08-18 12:54 | PCM.POSTANE2 ---
Anesthesia Postop Eval I Sum Postop Eval Completion status Anesthesia document: Postop Eval 1 completed: Yes Anesthesia Postop Eval I Summary Anesthesia Postop Eval I Summary: Anesthesia Postop Eval I: Assessment Summary Airway patent Yes 08/18/24 12:03 SUPERVISOR [email or web address] Spontaneous unlabored Yes 08/18/24 12:03 SUPERVISOR [email or web address] respirations Mental status Awake 08/18/24 12:03 SUPERVISOR [email or web address] nausea No 08/18/24 12:03 SUPERVISOR [email or web address] Vomiting No 08/18/24 12:03 SUPERVISOR [email or web address].SAM Anesthesia Postop Eval I: Fluid Summary Crystalloid volume administer 250 08/18/24 12:03 SUPERVISOR ABATTOIR.JCLI (ml) Colloids volume administered ( ml) Blood Product volume administered (ml) Total IV fluid infused 250 08/18/24 12:03 SUPERVISOR [email or web address].HARVINDER Anesthesia Postop Eval I: Summary Notes Anesthesia Complication No 08/18/24 12:03 SUPERVISOR ABATTOIR.SAM Anesthesia Complication Comment: Post-operative progress note Anesthesia: Postop Eval II Evaluation Mental status: Awake and Calm Pain Level: 2 nausea: No Vomiting: No
--- NOTE | 2024-08-18 13:14 | NURSING ---
Pt back from surgery. This RN and two Resp therapists in room trying to keep her spo2 up. spo2 89-91% on 6L NC at this time. Pt was able to cough some sputum up
[2024-08-18] MEDS: Morphine 4 MG/ML Syringe IV (13:20)
[2024-08-18] MEDS: Albuterol 2.5 MG/3 ML VIAL.NEB. INHALATION (13:20)
[2024-08-18] MEDS: 0.9% Saline Lock 10 ML Syringe IV (13:23)
[2024-08-18 13:43] LABS: Bedside Glucose 151 mg/dL (74-106)
--- NOTE | 2024-08-18 15:36 | CASEMGMT ---
SHELLY LI into pt room, pt sitting up in bed with oxygen on. Discussed with pt what was found when verifiying her oxygen. Pt states she does not have a home vent and she only has 3L bled into her bipap and with exertion. Pt has a portable oxygen tank in room for dc home. Pt is aware that a continuous pox was ordered for tonight and that her orders will be adjusted based on this. Pt states that she thinks there is another patient with the same name and Barreralorna is getting the two confused. TC to [facility] to confirm pt oxygen again, spoke with Kee. She confirms Vanna and 3L with exertion. SHELLY LI into pt room with Kee on speakerphone. Pt states she has had the Vanna for 2 wks but it was sent back. Kee did find this in her notes. 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 Green sheet on chart for change in oxygen rx. Pt denies further needs at this time.
[2024-08-18] MEDS: oxyCODONE 5 MG Tablet PO ×2 (16:35→21:18)
[2024-08-18 17:04] LABS: Bedside Glucose 136 mg/dL (74-106)
[2024-08-18 17:57] LABS: Hemoglobin A1c 6.8 % (<=5.6)
[2024-08-18] MEDS: Nystatin Powder 15gm Bottle 1 APPLIC TOPICAL (22:04)
[2024-08-18] MEDS: Enoxaparin 40 MG/0.4 ML Syringe SC (22:04)
[2024-08-18] MEDS: Ammonium Lactate 225 gm Bottle 1 APPLIC TOPICAL (22:06)
[2024-08-18 22:31] LABS: Bedside Glucose 146 mg/dL (74-106)
[2024-08-19] VITALS (13 sets, daily range): BP systolic 122–147; BP diastolic 57–83; PULSE 63–72; RESP 16–19; TEMP 36.8–37.3; O2SAT 79–96
[2024-08-19] MEDS: Levothyroxine 50 MCG Tablet PO (06:01)
[2024-08-19] MEDS: Levothyroxine 100 MCG Tablet 200 MCG PO (06:01)
[2024-08-19] MEDS: Insulin Lispro 100 UNIT/ML INSULN.PEN SC ×2 (06:41→12:32)
[2024-08-19] MEDS: oxyCODONE 5 MG Tablet PO ×2 (06:46→16:58)
[2024-08-19] MEDS: Acetaminophen 325 MG Tablet 650 MG PO ×2 (06:46→16:58)
[2024-08-19 06:48] LABS: Hematocrit 46.8 % (37-47); Hemoglobin 13.4 g/dL (12.0-15.0); Mean Corp Hgb Conc 28.6 g/dL (32-36); Mean Corpuscular Hgb 24.1 pg (27.0-32.0); Mean Platelet Vol. 11.6 fl (6.2-12.0); Platelet Count 181 K/mm3 (150-450); RBC Distribution Width CV 17.3 % (11.6-14.6); RBC Distribution Width SD 52.8 fl (35.1-43.9); Red Blood Count 5.57 M/mm3 (4.2-5.4)
[2024-08-19 06:59] LABS: Anion Gap 9 (5-15); BUN 13 mg/dL (4-19); BUN/Creat Ratio 19.9 RATIO (10-20); Calcium,Total 8.8 mg/dL (7.6-11.0); Carbon Dioxide 32.2 mmol/L (21.0-32.0); Chloride 98 mmol/L (98-108); Creatinine, Serum 0.68 mg/dL (0.70-1.20); EST Glomerular Filtration Rate 105 (>60); Estimated Creatinine Clearance 141.98 ml/min (50-250); Glucose 148 mg/dL (70-99); Potassium 4.2 mmol/L (3.3-5.1); Sodium Level 139 mmol/L (133-145)
[2024-08-19 07:18] LABS: Bedside Glucose 165 mg/dL (74-106)
--- NOTE | 2024-08-19 08:32 | PN.SURG_ITS ---
Subjective Subjective Patient is doing well this morning. She is not complaining of any abdominal pain. She tolerated diet. Objective Data Objective Data Vital Signs: Vital Signs Temp Pulse Resp BP Pulse Ox O2 Del Method O2 Flow Rate 99.1 F 67 16 130/62 H 93 Bi-pap 5 08/19/24 04:58 08/19/24 04:58 08/19/24 04:58 08/19/24 04:58 08/19/24 04:58 08/19/24 04:58 08/19/24 04:58 FiO2 35 08/18/24 12:38 Oxygen Flow Rate (L/min) 5 Oxygen Delivery Method Bi-pap Weight: 354 lb 2 oz Body Mass Index (BMI) 65.1 Intake & Output: Intake and Output for Last 24 Hours 08/17/24 08/18/24 08/19/24 23:59 23:59 23:59 Intake Total 440 / 440 240 / 390 300 / 300 Output Total 5 / 5 Balance 440 / 440 235 / 385 300 / 300 Lab / Micro Data 08/19/24 05:18 08/19/24 05:18 Labs: Laboratory Results - last 24 hr 08/18/24 05:25: Hemoglobin A1c 6.8 H 08/18/24 10:20: POC Glucose 160 H 08/18/24 13:13: POC Glucose 151 H 08/18/24 16:39: POC Glucose 136 H 08/18/24 22:03: POC Glucose 146 H 08/19/24 05:18: WBC 9.0, RBC 5.57 H, Hgb 13.4, Hct 46.8, MCV 84.0, MCH 24.1 L, M CHC 28.6 L, RDW Std Deviation 52.8 H, RDW Coeff of Radha 17.3 H, Plt Count 181, MPV 11.6, Sodium 139, Potassium 4.2, Chloride 98, Carbon Dioxide 32.2 H, Anion Gap 9, BUN 13, Creatinine 0.68 L, Estim Creat Clear Calc 141.98, Est GFR (MDRD) Non-Af 105, BUN/Creatinine Ratio 19.9, Glucose 148 H, Calcium 8.8 08/19/24 06:40: POC Glucose 165 H Physical Exam Const oriented x3 and no apparent distress Resp normal respiratory effort GI soft to palpation and non-tender Assessment & Plan Assessment/Plan (1) Umbilical hernia: PLAN: Patient is doing well. She is on her home CPAP. I will discharge her home today. Follow-up with me in 2 weeks for suture removal. Silas Benson MD Pager: [facility] [address] [place] [address], [address] [place] [phone] Office:
--- NOTE | 2024-08-19 08:33 | DS.PCM_ITS ---
Providers Date of Admission: 08/16/24 Primary Care Physician: RADHA Apple Consultations 08/16/24 12:42 Consult: Hospitalist Routine Consulting Provider: Alexandr Gold Reason for Consult: optimization for surgery wednesday EMERGENT Consult: No MD Notified: Yes Date Notified: 08/16/24 Time Notified: 12:44 Method of Notification: Verbal Reason For Visit: Hernia, Ventral Repair no mesh Diagnosis Discharge Diagnosis (1) Umbilical hernia: Status: Inactive Code(s): K42.9 - Umbilical hernia without obstruction or gangrene Plan: Patient is doing well. She is on her home CPAP. I will discharge her home today. Follow-up with me in 2 weeks for suture removal. Silas Benson MD Pager: [facility] [address] [place] [address], [address] [place] [address] Office: Medications at Discharge Home Medications metformin 1,000 mg tablet (Glucophage) 1,000 mg PO BID 10/07/18 cholecalciferol (vitamin D3) 25 mcg (1,000 unit) tablet 5,000 unit PO DAILY 04/10/20 potassium chloride 10 mEq tablet,extended release(part/cryst) 20 meq (2 x 10 mEq) PO DAILY #180 tabs 07/27/22 albuterol sulfate 90 mcg/actuation aerosol inhaler (Ventolin HFA) 2 puff inhalation Q4H PRN shortness of breath or wheezing #18 grams 09/15/23 bumetanide 2 mg tablet 2 mg PO DAILY PRN edema #30 tabs 12/01/23 ammonium lactate 12 % topical cream 1 applic topical QDAY 06/30/24 levothyroxine 200 mcg tablet 200 mcg PO DAILY #90 tabs 08/14/24 levothyroxine 50 mcg tablet (Unithroid) 50 mcg PO QDAY #90 tabs 08/14/24 acetaminophen 325 mg tablet 650 mg (2 x 325 mg) PO Q4H PRN PRN Pain 1-10 Or Fever #0 tabs 08/19/24 oxycodone 5 mg tablet 5 - 10 mg (1 - 2 x 5 mg) PO Q4H PRN PRN Pain Score 4-10 5 days #20 tabs 08/19/24 Hospital Course Operations herniorrhaphy Summary of Care Provided Hospital Course: The patient presented for elective umbilical hernia repair but her lung status was not optimized. She was admitted to the hospital and given IV Lasix for diuresis. 2 days later she was taken for surgery and the umbilical hernia was repaired. Following day she was tolerating a diet and will be discharged home. Weight / BMI Weight Weight: 354 lb 2 oz Body Mass Index (BMI) 65.1 ABG / Lab / Microbiology Data 08/19/24 05:18 08/19/24 05:18 Laboratory: Laboratory Results - last 24 hr 08/18/24 05:25: Hemoglobin A1c 6.8 H 08/18/24 10:20: POC Glucose 160 H 08/18/24 13:13: POC Glucose 151 H 08/18/24 16:39: POC Glucose 136 H 08/18/24 22:03: POC Glucose 146 H 08/19/24 05:18: WBC 9.0, RBC 5.57 H, Hgb 13.4, Hct 46.8, MCV 84.0, MCH 24.1 L, M CHC 28.6 L, RDW Std Deviation 52.8 H, RDW Coeff of Radha 17.3 H, Plt Count 181, MPV 11.6, Sodium 139, Potassium 4.2, Chloride 98, Carbon Dioxide 32.2 H, Anion Gap 9, BUN 13, Creatinine 0.68 L, Estim Creat Clear Calc 141.98, Est GFR (MDRD) Non-Af 105, BUN/Creatinine Ratio 19.9, Glucose 148 H, Calcium 8.8 08/19/24 06:40: POC Glucose 165 H D/C Instructions Discharge Diet: Light diet - advance as tolerated Discharge Activity: May Not Drive (while on narcotics) and May Shower Lifting Restrictions: 15 lbs for 6 weeks Additional Activity Instructions: Alternate ibuprofen and Tylenol for pain control, oxycodone for breakthrough pain Call your doctor if your incision/area has: Continuous Slow Oozing, Sudden Increased Bleeding, Increased Pain/ Swelling, Increased Redness, Foul Smelling Discharge and Swelling at the incision site Call your doctor if you observe: Fever of 101 or Higher Change Dressing in: 2 days Cleanse incision/area with: Soap & Water DC O2, CPAP, BIPAP Needs Home O2 Discharge instructions: Yes Type of respiratory needs?: Oxygen Oxygen frequency: With Ambulation Oxygen liters per minute during Ambulation: 3 DC home with Oxygen: Yes Home O2 MD Review: I have reviewed the oxygen testing, and the patient qualifies for home oxygen equipment and portability. The patient is mobile in the home and the community. Please Follow Up With: Silas Benson MD When: Please call to schedule 2 week follow up appointment. [phone] Meaningful Use Info Meaningful Use Meaningful Use Diagnoses (Choose all that apply): None applicable Ischemic Stroke Statin Dosing Therapy Reference: STATIN DOSE THERAPY REFERENCE: * Patients > 75 years receive moderate or high dose statin therapy. * Patients 75 years or YOUNGER should receive HIGH intensity statin dose unless contraindicated. You will be required to document reason for non-treatment if statin daily dose does not meet guidelines. HIGH DOSE STATIN THERAPY DAILY Atorvastatin > than or = to 40 mg Rosuvastatin > than or = to 20 mg Amlodipine + Atorvastatin > than or = to 2.5/40 mg Ezetimibe + Simvastatin 10/80 mg Simvastatin 80mg Discharge Plan Admission Admit Date/Time: 08/16/24 12:42 Attending Provider: Silas Benson Primary Care Provider: Padmini Wagner Consulting Providers: Alexandr Gold Discharge Orders/Prescriptions Prescriptions: New acetaminophen 325 mg Tablet 650 mg PO Q4H PRN PRN (Reason: Pain 1-10 Or Fever) Qty: 0 0RF oxycodone 5 mg Tablet 5 - 10 mg PO Q4H PRN PRN (Reason: Pain Score 4-10) 5 Days Qty: 20 0RF Continued metformin [Glucophage] 1,000 mg tablet 1,000 mg PO BID potassium chloride 10 mEq tablet,ER particles/crystals 20 meq PO DAILY Qty: 180 3RF albuterol sulfate [Ventolin HFA] 90 mcg/actuation HFA aerosol inhaler 2 puff inhalation Q4H PRN (Reason: shortness of breath or wheezing) Qty: 18 6RF ammonium lactate 12 % cream 1 applic topical QDAY levothyroxine 200 mcg tablet 200 mcg PO DAILY Qty: 90 3RF levothyroxine [Unithroid] 50 mcg tablet 50 mcg PO QDAY Qty: 90 3RF cholecalciferol (vitamin D3) 1,000 UNIT tablet 5,000 unit PO DAILY bumetanide 2 mg tablet 2 mg PO DAILY PRN (Reason: edema) Qty: 30 0RF Referrals / Follow Up: Padmini Wagner, DIGITAL MARKETING EXECUTIVE-C [Primary Care Provider] - Disposition Disposition (needs filled in before D/C Order can be placed): Home, Self Care
--- NOTE | 2024-08-19 09:31 | CPS ---
Patient on home Bipap with 5L oxygen bled in
--- NOTE | 2024-08-19 10:36 | NURSING ---
Pt was sitting in her chair with o2 tubing on but the tubing had been disconnected accidently from the wall and her spo2 at Ra at rest was 81%. Spo2 now that 02 is connected correctly is 93% on 5L NC at rest.
[2024-08-19] MEDS: Ammonium Lactate 225 gm Bottle 1 APPLIC TOPICAL ×2 (10:40→21:04)
[2024-08-19] MEDS: Nystatin Powder 15gm Bottle 1 APPLIC TOPICAL ×2 (10:41→21:04)
[2024-08-19] MEDS: Enoxaparin 40 MG/0.4 ML Syringe SC ×2 (10:41→21:05)
[2024-08-19] MEDS: Cholecalciferol (Vit D3) 125 MCG CAPSULE (5,000 UNITS) PO (10:42)
[2024-08-19] MEDS: Furosemide 40 MG Tablet PO (10:42)
[2024-08-19 11:46] LABS: Bedside Glucose 159 mg/dL (74-106)
[2024-08-19 16:42] LABS: Bedside Glucose 146 mg/dL (74-106)
[2024-08-19 22:13] LABS: Bedside Glucose 137 mg/dL (74-106)
[2024-08-20 03:15] VITALS: O2SAT 90
[2024-08-20] MEDS: Levothyroxine 100 MCG Tablet 200 MCG PO (05:13)
[2024-08-20] MEDS: Levothyroxine 50 MCG Tablet PO (05:13)
[2024-08-20 05:19] VITALS: BP 143/59; PULSE 64; RESP 18; TEMP 36.6; O2SAT 90
[2024-08-20 06:56] LABS: Bedside Glucose 138 mg/dL (74-106)
[2024-08-20 07:08] VITALS: O2SAT 93
[2024-08-20 07:08] LABS: Hematocrit 44.3 % (37-47); Hemoglobin 13.1 g/dL (12.0-15.0); Mean Corp Hgb Conc 29.6 g/dL (32-36); Mean Corpuscular Hgb 24.5 pg (27.0-32.0); Mean Corpuscular Volume 82.8 fL (81-99); Mean Platelet Vol. 11.8 fl (6.2-12.0); Platelet Count 172 K/mm3 (150-450); RBC Distribution Width CV 17.2 % (11.6-14.6); RBC Distribution Width SD 51.6 fl (35.1-43.9); Red Blood Count 5.35 M/mm3 (4.2-5.4); White Blood Count 9.7 K/mm3 (4.4-11.0)
[2024-08-20 07:29] LABS: Anion Gap 11 (5-15); BUN 12 mg/dL (4-19); BUN/Creat Ratio 21.6 RATIO (10-20); Carbon Dioxide 29.4 mmol/L (21.0-32.0); Chloride 97 mmol/L (98-108); Creatinine, Serum 0.58 mg/dL (0.70-1.20); EST Glomerular Filtration Rate 109 (>60); Estimated Creatinine Clearance 166.46 ml/min (50-250); Glucose 131 mg/dL (70-99); Sodium Level 138 mmol/L (133-145)
[2024-08-20 08:00] VITALS: O2SAT 92
[2024-08-20 08:03] VITALS: BP 135/59; PULSE 64; RESP 17; TEMP 37; O2SAT 92
[2024-08-20] MEDS: Ammonium Lactate 225 gm Bottle 1 APPLIC TOPICAL (08:04)
[2024-08-20] MEDS: Enoxaparin 40 MG/0.4 ML Syringe SC (08:05)
[2024-08-20] MEDS: Nystatin Powder 15gm Bottle 1 APPLIC TOPICAL (08:05)
[2024-08-20] MEDS: Furosemide 40 MG Tablet PO (08:05)
[2024-08-20] MEDS: Cholecalciferol (Vit D3) 125 MCG CAPSULE (5,000 UNITS) PO (08:06)
--- NOTE | 2024-08-20 08:12 | PN_ITS ---
Progress Note Discharge was held yesterday due to hypoxia. Patient was requiring 5 L of oxygen. Currently she is direct down to her baseline of 3 L and she is sa turating well. I will discharge her home today. Silas Benson MD Pager: [facility] [address] [place] [address], [address] [place] [address] Office:
--- NOTE | 2024-08-20 08:12 | PCM.PN.BLA ---
Progress Note Discharge was held yesterday due to hypoxia. Patient was requiring 5 L of oxygen. Currently she is direct down to her baseline of 3 L and she is saturating well. I will discharge her home today. Silas Benson MD Pager: [facility] [address] [place] [address], [address] [place] [address] Office:
[2024-08-20 11:50] LABS: Bedside Glucose 139 mg/dL (74-106)
== END 2024-08-20 12:36 | disposition home or self-care (01) | DRG 227 ==
LOC: MS3 13:38 → SDC 13:43 → MS3 13:43
PROVIDERS: Anesthesiology; Hospitalist; Surgery; Admitting Provider Surgery; PCP Nurse Practitioner Family; Referring Provider Surgery; Visit Provider Surgery
PROC: 0WQF0ZZ Repair Abdominal Wall, Open Approach (ICD-10-PCS; principal; 2024-08-18 10:45)
DX: K43.7 Other and unspecified ventral hernia with gangrene (principal); E66.2 Morbid (severe) obesity with alveolar hypoventilation; I50.32 Chronic diastolic (congestive) heart failure; E11.9 Type 2 diabetes mellitus without complications; J44.9 Chronic obstructive pulmonary disease, unspecified; I27.20 Pulmonary hypertension, unspecified; E03.9 Hypothyroidism, unspecified; J96.11 Chronic respiratory failure with hypoxia; Z68.44 Body mass index [BMI] 60.0-69.9, adult; F17.210 Nicotine dependence, cigarettes, uncomplicated; Z79.890 Hormone replacement therapy; Z79.84 Long term (current) use of oral hypoglycemic drugs; Z79.899 Other long term (current) drug therapy
CPT/HCPCS: 36415; 71046; 80048; 80053; 81025; 82962; 83036; 83735; 83880; 84443; 85025; 85027; 85610; 85730; 88302; 88305; 93005; 94002; 94003; 94640; 94668; 94762; 97161; A4216; J1938; J2405

== ENCOUNTER → 2024-12-13 | Outpatient (CLI) | payer MEDICAID, SELFPAY ==
[2024-12-13 14:13] LABS: Anion Gap 11 (5-15); BUN 8 mg/dL (4-19); BUN/Creat Ratio 14.0 RATIO (10-20); Calcium,Total 9.3 mg/dL (7.6-11.0); Carbon Dioxide 30.2 mmol/L (21.0-32.0); Chloride 99 mmol/L (98-108); Glucose 134 mg/dL (70-99); Potassium 4.9 mmol/L (3.3-5.1)
== END | disposition home or self-care (01) ==
PROVIDERS: Referring Provider Nurse Practitioner Family; Visit Provider Nurse Practitioner Family
DX: E06.3 Autoimmune thyroiditis (principal); E11.65 Type 2 diabetes mellitus with hyperglycemia; E87.6 Hypokalemia
CPT/HCPCS: 36415; 80048; 84439; 84443

== ENCOUNTER → 2025-01-17 | Outpatient (CLI) | payer MEDICAID, SELFPAY ==
[2025-01-17 13:05] LABS: Hematocrit 50.8 % (37-47); Hemoglobin 14.9 g/dL (12.0-15.0); Immature Granulocytes Count 0.060 X10^3/uL (0.0-0.0); Mean Corp Hgb Conc 29.3 g/dL (32-36); Mean Corpuscular Volume 83.3 fL (81-99); Mean Platelet Vol. 10.9 fl (6.2-12.0); NRBC Flagged by Analyzer 0 % (0-5); Platelet Count 245 K/mm3 (150-450); RBC Distribution Width CV 17.8 % (11.6-14.6); RBC Distribution Width SD 50.0 fl (35.1-43.9); Red Blood Count 6.10 M/mm3 (4.2-5.4); White Blood Count 13.6 K/mm3 (4.4-11.0)
[2025-01-17 14:09] LABS: AST(SGOT) 66 U/L (<=31); Alanine Aminotransfer ALT/SGPT 59 U/L (<=34); Albumin, Serum 4.1 g/dL (3.5-5.0); Alkaline Phosphatase 100 U/L (35-104); Anion Gap 11 (5-15); BUN 10 mg/dL (4-19); BUN/Creat Ratio 16.9 RATIO (10-20); Calcium,Total 9.7 mg/dL (7.6-11.0); Carbon Dioxide 27.7 mmol/L (21.0-32.0); Chloride 99 mmol/L (98-108); Cholesterol 143 mg/dL (<=200); Globulin 4.3 g/dL (2.2-4.2); Glucose 140 mg/dL (70-99); Low Density Lipoprotein Calc. 82 mg/dL; Potassium 4.8 mmol/L (3.3-5.1); Triglycerides 104 mg/dL; Very Low Density Lipoprotein 21 mg/dL (5-40); Vitamin D,25 Hydroxy 74.3 ng/mL (30-100); cholesterol:hdl ratio screen 3.42
== END | disposition home or self-care (01) ==
PROVIDERS: PCP Nurse Practitioner Family; Referring Provider Nurse Practitioner Family; Visit Provider Nurse Practitioner Family
DX: E55.9 Vitamin D deficiency, unspecified (principal); E03.9 Hypothyroidism, unspecified; E78.5 Hyperlipidemia, unspecified; I10 Essential (primary) hypertension
CPT/HCPCS: 36415; 80053; 80061; 82306; 84439; 84443; 85025

== ENCOUNTER → 2025-01-31 | Outpatient (CLI) | payer MEDICAID, SELFPAY ==
[2025-01-31 15:21] LABS: Hematocrit 49.3 % (37-47); Hemoglobin 14.3 g/dL (12.0-15.0); Immature Granulocytes Count 0.090 X10^3/uL (0.0-0.0); Mean Corp Hgb Conc 29.0 g/dL (32-36); Mean Corpuscular Volume 82.2 fL (81-99); Mean Platelet Vol. 11.9 fl (6.2-12.0); NRBC Flagged by Analyzer 0 % (0-5); Platelet Count 229 K/mm3 (150-450); RBC Distribution Width CV 17.7 % (11.6-14.6); RBC Distribution Width SD 49.6 fl (35.1-43.9); Red Blood Count 6.00 M/mm3 (4.2-5.4); White Blood Count 10.7 K/mm3 (4.4-11.0)
[2025-01-31 15:46] LABS: Ferritin 21 ng/mL (22-378); Iron 38 ug/dL (50-170)
== END | disposition home or self-care (01) ==
LOC: MTLAB 13:03
PROVIDERS: PCP Nurse Practitioner Family; Referring Provider Nurse Practitioner Family; Visit Provider Nurse Practitioner Family
DX: E61.1 Iron deficiency (principal); D72.829 Elevated white blood cell count, unspecified
CPT/HCPCS: 36415; 82728; 83540; 85025